=== PATIENT | female | born 1995 | race Caucasian/White ===

== ENCOUNTER → 2016-04-27 | Outpatient (CLI) | payer OTHER, MEDICAID ==
[~2016-04-27] MED LIST: ABILIFY; AC500T; ACHD5005 PO; BCP PO; CEPH250S PO; CEPH500C PO; CODE-54 PO; CYCL10TA9 PO; HYDR-3454 PO; HYDR-707 PO; HYDR25CA92 GT; HYOS0.1217 PO; IBP600T1 PO; IBP800T PO; KETO10TA77 PO; NAPR220C PO; NEOM10DR20 LEFT EAR; NF-NOR777T PO; NITR100C3 PO; NORE1TAB95 PO; ONDA-42 PO; ONDA-42 SL; ONDA4SOL2 PO; ORTHO EVRA PATCH; OSLT75C PO; OXYC-12 PO; PANT20TA2 PO; PREN1TAB19 PO; PREN1TAB86 PO; SRTR100T PO; TRM50T PO; VENL75TA74 PO
--- OUTSIDE RECORDS SUMMARY | 2016-04-27 09:59 | XMS REPORT | Continuity of Care Document ---
Author Author [facility] Organization [facility] Address Unknown Phone Unavailable Care Team Providers Care Tower Hoist Operator Name Role Phone CHINYERE MILLER MD PCP Insurance Providers Payer Name Policy Number Subscriber Name [facility] [place] [id number] Antonia Pinto 18 Self / Same As Patient [facility] [id number] Antonia Pinto 17 Self / Same As Patient Advance Directives Directive Response Recorded Date/Time Advance Directives No 06/02/14 10:08am Health Care Power of Mission Worker No 06/02/14 10:08am Organ Donor Yes 06/02/14 10:08am Resuscitation Status Full Code 06/02/14 10:08am Problems No known problems or medical conditions. Medications Medication Dose Route Sig Days/Qty Instructions Order Date Discontinued Date Status Acetaminophen 01/25/09 06/22/09 Discontinued Oseltamivir Phosphate 75 Mg PO DAILY 10 Qty 01/25/09 06/22/09 Discontinued Acetaminophen/Hydrocodone Bitart 1 Each PO Q 4 - 6 HR PRN 10 Qty 06/22/09 Discontinued Estradiol/Norethindr Acetate 0.035 Tab PO DAILY 01/26/10 01/02/11 Discontinued Tramadol HCl 100 Mg PO EVERY 6 HOURS 20 Qty 01/27/10 04/07/11 Discontinued Neomycin/Polymyxin/Hydrocortisone 3 Drops LEFT EAR FOUR TIMES DAILY 30 Qty 01/02/11 04/07/11 Discontinued Naproxen Sodium 660 Mg PO TWICE A DAY 04/07/11 01/25/12 Discontinued [Ortho Evra Patch] WEEKLY 04/07/11 10/11/11 Discontinued Ondansetron Hcl 4 Mg PO EVERY 4HRS PRN 10 Qty 04/23/11 10/11/11 Discontinued Sertraline HCl 50 Mg PO DAILY 10/11/11 04/02/12 Discontinued [Abilify] 2 Mg 10/11/11 01/25/12 Discontinued Noreth A-Et Estra/Fe Fumarate 1 Each PO 10/11/11 01/25/12 Discontinued Acetaminophen/Hydrocodone Bitart 1 Each PO EVERY 6 HOURS PRN 10 Qty 08/3104/02/12 Discontinued Cyclobenzaprine HCl (Flexeril) 1 Each PO Q8HR PRN 20 Qty 01/25/1204/02 Discontinued Ibuprofen 800 Mg PO GIVE EVERY 8 HRS ON SCHEDULE PRN 30 Qty 01/25/12 04/02/12 Discontinued Cephalexin Monohydrate (Keflex) 1 Each PO FOUR TIMES DAILY 7 Days 04/0212/17/12 Discontinued Ibuprofen 800 Mg PO GIVE EVERY 8 HRS ON SCHEDULE PRN 30 Qty 04/02/12 12/17/12 Discontinued Nitrofurantoin/Nitrofuran Mac 100 Mg PO TWICE A DAY PRN ABDOMINAL PAIN 7 Days 04/17/13 07/06/13 Discontinued Vit/Fe Fumarate/Fa 1 Each PO DAILY 30 Qty 04/17/13 05/26/14 Discontinued Hydroxyzine Pamoate 25 Mg GT EVERY 6 HOURS PRN ANXIETY 30 Qty 08/24/13 08/29/13 Discontinued Ondansetron Hcl 4 Mg PO EVERY 4HRS PRN NAUSEA/VOMITING 30 Qty 08/24/13 08/29/13 Discontinued Oxycodone Hcl/Acetaminophen 1 Each PO EVERY 4HRS PRN PAIN 30 Qty 08/29/13 Discontinued Acetaminophen/Codeine 1 Tab PO EVERY 6 HOURS PRN PAIN 20 Qty 08/27/13 05/26/14 Discontinued Ibuprofen 600 Mg PO EVERY 6 HOURS 30 Qty 08/27/13 05/26/14 Discontinued Cephalexin Monohydrate (Keflex) 1 Each PO FOUR TIMES DAILY 40 Qty 08/2905/26/14 Discontinued [Bcp] 1 Tab PO DAILY 05/26/14 Active Venlafaxine Hcl 75 Mg PO DAILY 05/26/14 Active Hydrocodone Bit/Acetaminophen 1-2 Tab PO EVERY 4-6 HRS PRN PAIN 30 Qty 06/02/14 Active Social History Social History Problem Response Recorded Date/Time Alcohol Use Denies Use 08/29/2013 1:41am Recreational Drug Use No 08/29/2013 1:41am Recent Foreign Travel No 08/29/2013 1:41am Recent Infectious Disease Exposure No 08/29/2013 1:41am Sexually Transmitted Disease No 08/29/2013 1:41am Smoking Status Current Everyday Smoker 06/02/2014 10:10am Query Response Start Date Stop Date Smoking Status Current Everyday Smoker Hospital Discharge Instructions No hospital discharge instructions. Plan of Care No plan of care. Functional Status No functional status results. Allergies, Adverse Reactions, Alerts Allergen Type Severity Reaction Status Last Updated morphine Allergy Mild Active 06/22/09 Immunizations Name Given Type Date of Influenza Vaccine 05/24/14 Historical Tetanus Booster (TDap) Unknown Historical Vital Signs Acute Vital Signs Vital Response Date/Time Temperature (Fahrenheit) 98.5 degrees F (97.6 - 99.5) Temperature (Calculated Celsius) 36.59979 degrees C (36.4 - 37.5) Temperature Source Temporal Pulse Rate (adult) 55 bpm (60 - 90) Respiratory Rate 16 bpm (12 - 24) O2 Sat by Pulse Oximetry 100 % (88 - 100) Blood Pressure 122/86 mm Hg Pain Pain Intensity 0 Height (Feet) 5 feet Height (Inches) 4.00 inches Height (Calculated Centimeters) 162.876613 cm Weight (Pounds) 134 pounds Weight (Ounces) 6.0 oz Weight (Calculated Grams) 97843.475 gm Weight (Calculated Kilograms) 60.145158 kilograms Height 5 ft 4 in Weight 134 lb Body Mass Index 23.1 kg/m^2 Results No known relevant diagnostic tests, laboratory data and/or discharge summary. Procedures Procedure Status Date Provider(s) Excision of epidermal inclusion cyst completed 06/02/14 JUAN DANIEL GOMEZ MD Encounters Encounter Location Date/Time Registered Surgical Day Care Via [facility] 06/02/14 8:05am Registered Clinic Via [facility] 05/26/14 8:41am
--- NOTE | 2016-04-27 11:29 | Diagnostic Imaging Report ---
EXAM: OB ultrasound. INDICATION: Cramping. Status post fall. COMPARISON: 04/12/2016 exam. FINDINGS: There is a live twin with twin A to the right of the uterus with a heart rate of 172 and Twin B embryo has a heart rate of 163 beats per minute. The crown-rump length at this time is at 8 weeks and 3 days for twin A and at the 8 weeks and 3 days also for twin B. The current gestational age by prior ultrasound measurements is 8 weeks and 2 days, compatible with normal growth. IMPRESSION: Live twin intrauterine with appropriate interval growth. Dictated by: Dictated on workstation # [id number]
== END ==
LOC: RAD 09:56
PROVIDERS: ATTEND Family Medicine
DX: O9A.211 Injury, poisoning and certain other consequences of external causes complicating pregnancy, first trimester (principal); O26.891 Other specified pregnancy related conditions, first trimester; N94.89 Other specified conditions associated with female genital organs and menstrual cycle; O30.001 Twin pregnancy, unspecified number of placenta and unspecified number of amniotic sacs, first trimester; Z3A.08 8 weeks gestation of pregnancy; W19.XXXA Unspecified fall, initial encounter
CPT/HCPCS: 76801

== ENCOUNTER → 2016-05-07 | Outpatient (CLI) | payer OTHER, MEDICAID ==
--- OUTSIDE RECORDS SUMMARY | 2016-05-07 09:33 | XMS REPORT | Continuity of Care Document ---
Author Author [facility] Organization [facility] Address Unknown Phone Unavailable Care Team Providers Care Loading And Unloading Supervisor Name Role Phone CHINYERE MILLER MD PCP Insurance Providers Payer Name Policy Number Subscriber Name Relationship [facility] [id number] Antonia Pinto 17 Self / Same As Patient [facility] Amerigrp [id number] Antonia Pinto 17 Self / Same As Patient Advance Directives Directive Response Recorded Date/Time Advance Directives No 06/02/14 10:08am Health Care Power of Birth Certificate Clerk No 06/02/14 10:08am Organ Donor Yes 06/02/14 [...] F (97.6 - 99.5) Temperature (Calculated Celsius) 36.65526 degrees C (36.4 - 37.5) Temperature Source Temporal Pulse Rate (adult) 55 bpm (60 - 90) Respiratory Rate 16 bpm (12 - 24) O2 Sat by Pulse Oximetry 100 % (88 - 100) Blood Pressure 122/86 mm Hg Pain Pain Intensity 0 Height (Feet) 5 feet Height (Inches) 4.00 inches Height (Calculated Centimeters) 162.709933 cm Weight (Pounds) 134 pounds Weight (Ounces) 6.0 oz Weight (Calculated Grams) 46562.475 gm Weight (Calculated Kilograms) 60.642570 kilograms Height 5 ft 4 in Weight 134 lb Body Mass Index 23.1 kg/m^2 Results No known relevant diagnostic tests, laboratory data and/or discharge summary. Procedures Procedure Status Date Provider(s) Excision of epidermal inclusion cyst completed 06/02/14 JUAN DANIEL GOMEZ MD Encounters Encounter Location Date/Time Registered Surgical Day Care [facility] 06/02/14 8:05am Registered Clinic [facility] 05/26/14 8:41am
--- NOTE | 2016-05-07 13:31 | Diagnostic Imaging Report ---
OB ultrasound of twin . INDICATION: Twin . Comparison exams of 04/27/2016 and 04/12/2016 reviewed. FINDINGS: Twin A located inferiorly and to the right has heart rate of 156 beats per minute and crown-rump length of 10 weeks and 0 days normal for gestational age of 9 weeks and 5 days. Twin B has sac superior and to the left and the embryo has cardiac motion at 152 beats per minute. Pomaria-rump length is at 9 weeks and 6 days. There is placental implantation thickening posteriorly seen. The left ovary appears normal. The right ovary is obscured by bowel gas. IMPRESSION: Live twin with appropriate interval growth. Dictated by: Dictated on workstation # [id number]
== END ==
LOC: RAD 09:29
PROVIDERS: ATTEND Family Medicine
DX: O34.593 Maternal care for other abnormalities of gravid uterus, third trimester (principal); N85.8 Other specified noninflammatory disorders of uterus; O30.009 Twin pregnancy, unspecified number of placenta and unspecified number of amniotic sacs, unspecified trimester; Z3A.10 10 weeks gestation of pregnancy; W19.XXXA Unspecified fall, initial encounter
CPT/HCPCS: 76801

== ENCOUNTER → 2016-05-28 | Outpatient (CLI) | payer OTHER, MEDICAID ==
--- OUTSIDE RECORDS SUMMARY | 2016-05-28 09:23 | XMS REPORT | Continuity of Care Document ---
Author Author [facility] Organization [facility] Address Unknown Phone Unavailable Care Team Providers Care Cosmetology Instructor Name Role Phone CHINYERE MILLER MD PCP Insurance Providers Payer Name Policy Number Subscriber Name [facility] [id number] Antonia Pinto 17 Self / Same As Patient [facility] [employer]p [id number] Antonia Pinto 17 Self / Same As Patient Advance Directives Directive Response Recorded Date/Time Advance Directives No 06/02/14 10:08am Health Care Power of Medical Records Technician No 06/02/14 10:08am Organ Donor Yes 06/02/14 [...] F (97.6 - 99.5) Temperature (Calculated Celsius) 36.31034 degrees C (36.4 - 37.5) Temperature Source Temporal Pulse Rate (adult) 55 bpm (60 - 90) Respiratory Rate 16 bpm (12 - 24) O2 Sat by Pulse Oximetry 100 % (88 - 100) Blood Pressure 122/86 mm Hg Pain Pain Intensity 0 Height (Feet) 5 feet Height (Inches) 4.00 inches Height (Calculated Centimeters) 162.116006 cm Weight (Pounds) 134 pounds Weight (Ounces) 6.0 oz Weight (Calculated Grams) 90052.475 gm Weight (Calculated Kilograms) 60.977605 kilograms Height 5 ft 4 in Weight 134 lb Body Mass Index 23.1 kg/m^2 Results No known relevant diagnostic tests, laboratory data and/or discharge summary. Procedures Procedure Status Date Provider(s) Excision of epidermal inclusion cyst completed 06/02/14 JUAN DANIEL GOMEZ MD Encounters Encounter Location Date/Time Registered Surgical Day Care Via [facility] 06/02/14 8:05am Registered Clinic [facility] 05/26/14 8:41am
--- NOTE | 2016-05-28 11:22 | Diagnostic Imaging Report ---
OB ultrasound twins, first trimester. INDICATION: Twin . COMPARISON: 05/07/2016. FINDINGS: Baby A, closest to the cervix, has heart rate of 153 beats per minute,? and Twin B has heart rate of 158 beats per minute. The crown rump length for Baby A is 13 weeks and 0 days and Baby B is 13 weeks and 2 days compatible with gestational age based on the first ultrasound performed at 12 weeks and 5 days. No subchorionic hemorrhage or other abnormality is seen. Adequate fluid in a symmetric fashion is seen in both twins. IMPRESSION: Live twin with appropriate interval growth. Dictated by: Dictated on workstation # [id number]
== END ==
LOC: RAD 09:19
PROVIDERS: ATTEND Family Medicine
DX: O30.001 Twin pregnancy, unspecified number of placenta and unspecified number of amniotic sacs, first trimester (principal); Z3A.13 13 weeks gestation of pregnancy
CPT/HCPCS: 76801

== ENCOUNTER 2016-06-02 19:53 | Emergency (ER) | payer OTHER, MEDICAID ==
[~2016-06-02 19:53] MED LIST changes: -CEPH250S PO; -PREN1TAB86 PO
--- OUTSIDE RECORDS SUMMARY | 2016-06-02 20:02 | XMS REPORT | Continuity of Care Document ---
Author Author [facility] Organization [facility] Address Unknown Phone Unavailable Care Team Providers Care Properties Supervisor Name Role Phone CHINYERE MILLER MD PCP Insurance Providers Payer Name Policy Number Subscriber Name [facility] [id number] Antonia Pinto 17 Self / Same As Patient [facility] Amerigrp [id number] Antonia Pinto 17 Self / Same As Patient Advance Directives Directive Response Recorded Date/Time Advance Directives No 06/02/14 10:08am Health Care Power of Cafeteria Associate No 06/02/14 10:08am Organ Donor Yes 06/02/14 [...] F (97.6 - 99.5) Temperature (Calculated Celsius) 36.63534 degrees C (36.4 - 37.5) Temperature Source Temporal Pulse Rate (adult) 55 bpm (60 - 90) Respiratory Rate 16 bpm (12 - 24) O2 Sat by Pulse Oximetry 100 % (88 - 100) Blood Pressure 122/86 mm Hg Pain Pain Intensity 0 Height (Feet) 5 feet Height (Inches) 4.00 inches Height (Calculated Centimeters) 162.302407 cm Weight (Pounds) 134 pounds Weight (Ounces) 6.0 oz Weight (Calculated Grams) 68655.475 gm Weight (Calculated Kilograms) 60.146737 kilograms Height 5 ft 4 in Weight 134 lb Body Mass Index 23.1 kg/m^2 Results No known relevant diagnostic tests, laboratory data and/or discharge summary. Procedures Procedure Status Date Provider(s) Excision of epidermal inclusion cyst completed 06/02/14 JUAN DANIEL GOMEZ MD Encounters Encounter Location Date/Time Registered Surgical Day Care Via [facility] 06/02/14 8:05am Registered Clinic Via [facility] 05/26/14 8:41am
== END 2016-06-02 21:11 | disposition left against medical advice (07) ==
LOC: EDUNIT# 19:53 → ER 19:57
DX: R51 Headache (principal); R42 Dizziness and giddiness; Z3A.14 14 weeks gestation of pregnancy; Z53.21 Procedure and treatment not carried out due to patient leaving prior to being seen by health care provider

== ENCOUNTER → 2016-06-21 | Outpatient (CLI) | payer OTHER, MEDICAID ==
[~2016-06-21] MED LIST changes: +CEPH250S PO; +PREN1TAB86 PO
--- OUTSIDE RECORDS SUMMARY | 2016-06-21 11:39 | XMS REPORT | Continuity of Care Document ---
Author Author [facility] Organization [facility] Address Unknown Phone Unavailable Care Team Providers Care Skilled Laborer Name Role Phone CHINYERE MILLER MD PCP Insurance Providers Payer Name Policy Number Subscriber Name Relationship [facility] [id number] Antonia Pinto 17 Self / Same As Patient [facility] Amer[facility]p [id number] Antonia Pinto 17 Self / Same As Patient Advance Directives Directive Response Recorded Date/Time Advance Directives No 06/02/14 10:08am Health Care Power of Meat Washer No 06/02/14 10:08am Organ Donor Yes 06/02/14 [...] F (97.6 - 99.5) Temperature (Calculated Celsius) 36.14738 degrees C (36.4 - 37.5) Temperature Source Temporal Pulse Rate (adult) 55 bpm (60 - 90) Respiratory Rate 16 bpm (12 - 24) O2 Sat by Pulse Oximetry 100 % (88 - 100) Blood Pressure 122/86 mm Hg Pain Pain Intensity 0 Height (Feet) 5 feet Height (Inches) 4.00 inches Height (Calculated Centimeters) 162.584002 cm Weight (Pounds) 134 pounds Weight (Ounces) 6.0 oz Weight (Calculated Grams) 53106.475 gm Weight (Calculated Kilograms) 60.519800 kilograms Height 5 ft 4 in Weight 134 lb Body Mass Index 23.1 kg/m^2 Results No known relevant diagnostic tests, laboratory data and/or discharge summary. Procedures Procedure Status Date Provider(s) Excision of epidermal inclusion cyst completed 06/02/14 JUAN DANIEL GOMEZ MD Encounters Encounter Location Date/Time Registered Surgical Day Care [facility] 06/02/14 8:05am Registered Clinic Via [facility] 05/26/14 8:41am
--- NOTE | 2016-06-21 19:04 | Diagnostic Imaging Report ---
OB ultrasound, twin . INDICATION: Twin . COMPARISON: 06/17/2016. FINDINGS: There is live twin with heart rate on baby A near the cervix at 142 and heart rate on baby B is 144. The placenta for baby A is anterior and inferior and for baby B is posterior and superior. There is no placenta previa. The growth parameters for baby A are all around 16 weeks and 2 days and for baby B all around 16 weeks and 3 days, consistent with gestational age based on first trimester ultrasound dating and established CAITIE of 12/05/2016. Gestational age on the day of this exam is 16 weeks and 1 day. IMPRESSION: Live twin with appropriate interval growth. Dictated by: Dictated on workstation # [id number]
== END ==
LOC: RAD 11:05
PROVIDERS: ATTEND Family Medicine
DX: O26.892 Other specified pregnancy related conditions, second trimester (principal); M54.5 Low back pain; O30.002 Twin pregnancy, unspecified number of placenta and unspecified number of amniotic sacs, second trimester; Z3A.00 Weeks of gestation of pregnancy not specified
CPT/HCPCS: 76805

== ENCOUNTER 2016-07-05 21:46 | Emergency (ER) | payer OTHER, MEDICAID ==
[~2016-07-05] VITALS: Ht 162.6 cm; Wt 64.9 kg
[~2016-07-05 21:46] MED LIST changes: -CEPH250S PO; -PREN1TAB86 PO
--- OUTSIDE RECORDS SUMMARY | 2016-07-05 21:52 | XMS REPORT | Continuity of Care Document ---
Author Author [facility] Organization [facility] Address Unknown Phone Unavailable Care Team Providers Care Steam Service Inspector Name Role Phone CHINYERE MILLER MD PCP Insurance Providers Payer Name Policy Number Subscriber Name [facility] [id number] Antonia Pinto 17 Self / Same As Patient [facility] Amerigrp [id number] Antonia Pinto 17 Self / Same As Patient Advance Directives Directive Response Recorded Date/Time Advance Directives No 06/02/14 10:08am Health Care Power of Acute Care Nurse No 06/02/14 10:08am Organ Donor Yes 06/02/14 [...] F (97.6 - 99.5) Temperature (Calculated Celsius) 36.34454 degrees C (36.4 - 37.5) Temperature Source Temporal Pulse Rate (adult) 55 bpm (60 - 90) Respiratory Rate 16 bpm (12 - 24) O2 Sat by Pulse Oximetry 100 % (88 - 100) Blood Pressure 122/86 mm Hg Pain Pain Intensity 0 Height (Feet) 5 feet Height (Inches) 4.00 inches Height (Calculated Centimeters) 162.795487 cm Weight (Pounds) 134 pounds Weight (Ounces) 6.0 oz Weight (Calculated Grams) 02458.475 gm Weight (Calculated Kilograms) 60.724678 kilograms Height 5 ft 4 in Weight 134 lb Body Mass Index 23.1 kg/m^2 Results No known relevant diagnostic tests, laboratory data and/or discharge summary. Procedures Procedure Status Date Provider(s) Excision of epidermal inclusion cyst completed 06/02/14 JUAN DANIEL GOMEZ MD Encounters Encounter Location Date/Time Registered Surgical Day Care Via [facility] 06/02/14 8:05am Registered Clinic Via [facility] 05/26/14 8:41am
[2016-07-05 22:35] LABS: BILIRUBIN,URINE NEGATIVE (NEGATIVE); KETONES,URINE NEGATIVE (NEGATIVE); LEUKOCYTE ESTERASE ,URINE NEGATIVE (NEGATIVE); NITRITE,URINE NEGATIVE (NEGATIVE); PH,URINE 7 (5-9); PROTEIN,URINE NEGATIVE (NEGATIVE); UROBILINOGEN,URINE 1 MG/DL (NORMAL)
--- NOTE | 2016-07-05 22:39 | ED GU-Female ---
General Chief Complaint: -Female Stated Complaint: SPOTTING;18 WEEKS Nursing Triage Note: PT TO ED 9 W/ S.O. FOR C/O VAGINAL PRESSURE ET SPOTTING ONSET 4-5HRS [employer]. PT REPORTS SHE IS 18WKS AT THIS TIME. Nursing Sepsis Screen: No Definite Risk Source: patient Exam Limitations: no limitations History of Present Illness Time seen by provider: 22:20 Initial Comments Here with complaint of lower abdominal pressure and spotting intermittently for the last 45 hours. She reports times has spotting to her pad. She is with twins. She denies vaginal discharge, fevers, nausea or vomiting or diarrhea. She denies dysuria. Last sexual activity was yesterday. Timing/Duration: constant Severity/Quality: mild, other (fullness) Location: suprapubic, vaginal Radiation: none Activities at Onset: none Prior Genitourinary Problems: none Sexual [place] History: less than 2 months ago, single partner Associated Symptoms: No dysuria, No lower back pain, No nausea/vomiting, No urinary frequency Allergies and Home Medications Allergies Coded Allergies: morphine (Unverified Allergy, Mild, 06/22/09) Home Medications 1 TAB PO DAILY (Reported) Hyoscyamine Sulfate 0.125 Mg/Tab Tab.rapdis #30 1-2 EACH PO Q4H PRN PRN ABDOMINAL PAIN Prescribed by: THIERNO BAILEY on 09/15/14 1022 Ketorolac Tromethamine 10 Mg Tablet #10 10 MG PO Q6H Prescribed by: THIERNO BAILEY on 09/15/14 1022 Ondansetron Hcl 4 Mg Tab #10 4 MG SL Q4H FOR NAUSEA AND VOMITING Prescribed by: THIERNO BAILEY on 09/15/14 1022 Pantoprazole Sodium 20 Mg Tablet.dr #20 20 MG PO BID Prescribed by: THIERNO BAILEY on 09/15/14 1022 Constitutional: see HPINo chills, No fever EENTM: no symptoms reported Respiratory: no symptoms reported Cardiovascular: no symptoms reported Gastrointestinal: see HPI abdominal pain (Suprapubic)No nausea, No vomiting Genitourinary: denies burning, pain (vaginal fullness)denies urgency All Other Systemes Reviewed Negative Unless Noted: Yes Past Bwvmrox-Fyaapk-Odxruv Hx Patient Social History Alcohol Use: Denies Use Recreational Drug Use: No Smoking Status: Current Everyday Smoker Type Used: Cigarettes Recent Foreign Travel: No Contact w/Someone Who Travel: No Recent Infectious Disease Expo: No Recent Hopitalizations: No Immunizations Up To Date Tetanus Booster (TDap): Unknown Date of Influenza Vaccine: May 24, 2014 Seasonal Allergies Seasonal Allergies: No Surgeries HX Surgeries: Yes (PILONIDAL CYST REMOVAL) Surgeries: Gallbladder Respiratory Hx Respiratory Disorders: No Cardiovascular Hx Cardiac Disorders: No Neurological Hx Neurological Disorders: No Reproductive System Hx : 2 Hx Para: 1 Hx Total # of Abortions (Spona: 0 Hx Reproductive Disorders: No Sexually Transmitted Disease: No Female Reproductive Disorders: Denies Genitourinary Hx Genitourinary Disorders: No Gastrointestinal Hx Gastrointestinal Disorders: Yes Gastrointestinal Disorders: Gall Bladder Disease Musculoskeletal Hx Musculoskeletal Disorders: No Endocrine Hx Endocrine Disorders: No HEENT HX ENT Disorders: No Cancer Hx Cancer: No Psychosocial Hx Psychiatric Problems: Yes (OFF MEDICATION) Behavioral Health Disorders: Anxiety Integumentary HX Skin/Integumentary Disorder: No Blood Transfusions Hx Blood Disorders: No Adverse Reaction to a Blood Tr: No Reviewed Nursing Assessment Reviewed/Agree w Nursing PMH: Yes Family Medical History Significant Family History: No Pertinent Family Hx Family Medial History: Family history: Diabetes mellitus 19 FATHER, Onset:Unknown grandfather, Onset:Unknown Family history: Hypertension grandmother, Onset:Unknown Physical Exam Vital Signs Vital Sign - Last 12Hours 07/05/16 22:10 Temp 97.0 Pulse 97 Resp 20 B/P 133/81 Pulse Ox 98 O2 Delivery Room Air Capillary Refill : Less Than 3 Seconds General Appearance: WD/WN no apparent distress Neck: full range of motion supple Cardiovascular: regular rate, rhythm no murmur Respiratory: lungs clear normal breath sounds Gastrointestinal: soft tenderness (suprapubic region and to the left a little bit.) Back: normal inspection no CVA tenderness no vertebral tenderness Extremities: non-tender normal inspection Neurologic/Psychiatric: alert oriented x 3 Skin: normal color warm/dry Progress/Results/Core Measures Results/Orders Lab Results Laboratory Tests Test 07/05/16 22:27 Range/Units Urine Bacteria TRACE /HPF Urine Bilirubin NEGATIVE NEGATIVE Urine Casts NONE /LPF Urine Clarity CLEAR Urine Color YELLOW Urine Crystals NONE /LPF Urine Culture Indicated NO Urine Glucose (UA) NEGATIVE NEGATIVE Urine Ketones NEGATIVE NEGATIVE Urine Leukocyte Esterase NEGATIVE NEGATIVE Urine Mucus NEGATIVE /LPF Urine Nitrite NEGATIVE NEGATIVE Urine Protein NEGATIVE NEGATIVE Urine RBC NONE /HPF Urine RBC (Auto) NEGATIVE NEGATIVE Urine Specific [place] 1.010 L 1.016-1.022 Urine Squamous Epithelial Cells 2-5 /HPF Urine Urobilinogen 1 NORMAL MG/DL Urine WBC 0-2 /HPF Urine pH 7 5-9 My Orders Orders-KECIA CHEEMA MD Ua Culture If Indicated (07/05/16 22:26) [place] Limited [id number] (07/05/16 21:52) Vital Signs/I&O Vital Sign - Last 12Hours 07/05/16 22:10 Temp 97.0 Pulse 97 Resp 20 B/P 133/81 Pulse Ox 98 O2 Delivery Room Air Blood Pressure Mean: 98 Progress Note : Progress Note Seen and evaluated. UA ordered. Blood type reviewed and she is A+. Pelvic ultrasound ordered. I did discuss the case with Dr. Miller. He will see the patient tomorrow. He agrees with plan. We will hold on pelvic exam and less there are increasing problems. He agrees with ultrasound. 0035: No significant rebleeding reported or noted. We will discharge home with return precautions. Pelvic rest until cleared by her doctor. To follow-up with Dr. Miller in the morning. She will call clinic for appointment. Discharged home with return precautions. Patient and family verbalize understanding instructions and agreement with plan. Diagnostic Imaging Diagonstic Imaging: Ultrasound Plain Films/CT/US/NM/MRI: pelvis Comments Impression 1. 20 . EGA of 18 weeks and 1 day based on current measurements. 2. Twin A and cephalic presentation. Twin B is in transverse position. 3 cervical length of 3.9 cm. internal os is closed. 4. heart rate within normal limits. Incidental findings: Twin A: heart rate of 130 6G p.m. Anterior percent. Twin B: heart rate of 138 bpm. Posterior placenta. Departure Impression Impression: Primary Impression: Threatened miscarriage Disposition: 01 HOME, SELF-CARE Condition: Stable Departure-Patient Inst. Decision time for Depature: 00:38 Referrals: CHINYERE MILLER MD (PCP/Family) Primary Care Physician Patient Instructions: Threatened Miscarriage (DC) Add. Discharge Instructions: All discharge instructions reviewed with patient and/or family. Voiced understanding. Pelvic rest meaning no sexual activity until cleared by her doctor. No heavy lifting until cleared by her doctor. Call your in the morning for appointment today. Return for worse pain, fever, vomiting, weakness, vaginal bleeding increasing, increasing abdominal pain or other concerns as needed. Drink plenty of fluids. Copy Copies To 1: CHINYERE MILLER MD, TIMOTHY D MD Jul 05, 2016 22:39
[2016-07-05 22:46] LABS: WBC,URINE 0-2 /HPF
[2016-07-06 00:47] VITALS: BP 120/69
--- NOTE | 2016-07-06 07:17 | Diagnostic Imaging Report ---
OB ultrasound twins. INDICATION: Spotting. FINDINGS: Again seen twin . Fetus A heart rate is 136 beats per minute, and Fetus B heart rate is 138 beats per minutes. Fetus A is in cephalic position, and is towards the cervix, and Fetus B is in transverse position with the head to the maternal left. Current gestational age is 18 weeks and 1 day. The placenta is anterior for Fetus A and posterior for Fetus B. There is no placenta previa. The cervix is 3.9 cm in length and is closed. Adequate amniotic fluid is seen on both sides. No evidence of retroplacental hemorrhage. IMPRESSION: Live twin . Dictated by: Dictated on workstation # [id number]
== END 2016-07-06 00:47 | disposition home or self-care (01) ==
LOC: EDUNIT# 21:46 → ER 21:48
DX: O20.0 Threatened abortion (principal); O30.042 Twin pregnancy, dichorionic/diamniotic, second trimester; Z3A.18 18 weeks gestation of pregnancy
CPT/HCPCS: 76815; 81000; 99282

== ENCOUNTER 2016-07-20 09:50 | Outpatient (CLI) | payer OTHER, MEDICAID ==
[~2016-07-20] VITALS: Ht 162.6 cm; Wt 68.5 kg
[2016-07-20 10:30] LABS: BILIRUBIN,URINE NEGATIVE (NEGATIVE); KETONES,URINE NEGATIVE (NEGATIVE); LEUKOCYTE ESTERASE ,URINE 1+ (NEGATIVE); NITRITE,URINE NEGATIVE (NEGATIVE); PH,URINE 6 (5-9); PROTEIN,URINE 2+ (NEGATIVE); UROBILINOGEN,URINE 4 MG/DL (NORMAL)
[2016-07-20] MEDS ORDERED: D5 NS 1000 ML IV SOLUTION 1,000 ML IV SCH (10:30)
[2016-07-20] MEDS ORDERED: PREN1TAB86 PO (10:31)
[2016-07-20 11:18] LABS: BASOPHILS % (AUTO) 0 % (0-10); EOSINOPHILS % (AUTO) 0 % (0-10); LYMPHOCYTES # (AUTO) 1.1 X 10^3 (1.0-4.0); LYMPHOCYTES % (AUTO) 12 % (12-44); MEAN CORPUSCULAR HEMOGLOBIN 33 PG (25-34); MEAN CORPUSCULAR HGB CONC 33 G/DL (32-36); MEAN CORPUSCULAR VOLUME 102 FL (80-99); MEAN PLATELET VOLUME 11.6 FL (7.4-10.4); MONOCYTES # (AUTO) 0.8 X 10^3 (0.0-1.0); MONOCYTES % (AUTO) 8 % (0-12); NEUTROPHILS # (AUTO) 7.4 X 10^3 (1.8-7.8); NEUTROPHILS % (AUTO) 79 % (42-75); PLATELET COUNT 187 10^3/uL (130-400); RED BLOOD COUNT 2.59 10^6/uL (4.35-5.85); RED CELL DISTRIBUTION WIDTH 12.6 % (10.0-14.5); WHITE BLOOD COUNT 9.3 10^3/uL (4.3-11.0)
[2016-07-20 11:20] VITALS: BP 106/55
[2016-07-20 12:17] LABS: ALANINE AMINOTRANSFERASE 71 U/L (0-55); ALBUMIN 3.1 G/DL (3.2-4.5); AMYLASE 135 U/L (25-125); ANION GAP 6 MMOL/L (5-14); ASPARTATE AMINO TRANSFERASE 73 U/L (5-34); BILIRUBIN,TOTAL 0.4 MG/DL (0.1-1.0); BLOOD UREA NITROGEN 11 MG/DL (7-18); BUN/CREATININE RATIO 19; CALCIUM 8.7 MG/DL (8.5-10.1); CARBON DIOXIDE 24 MMOL/L (21-32); CHLORIDE 106 MMOL/L (98-107); CREATININE SERUM 0.59 MG/DL (0.60-1.30); GFR ESTIMATED > 60; GLUCOSE 83 MG/DL (70-105); LIPASE 4 U/L (8-78); SODIUM 136 MMOL/L (135-145); TOTAL PROTEIN 5.9 G/DL (6.4-8.2)
[2016-07-20] MEDS ORDERED: CEPH250S PO (12:34)
--- NOTE | 2016-07-23 12:52 | Physician Query-Final Dx ---
ANN IZAGUIRRE 07/23/16 1252: Clinic Account Progress/Dx Physician Query: Please give diagnosis Date of Service Jul 20, 2016 at 09:50 CHINYERE MILLER MD 07/29/16 1731: Clinic Account Progress/Dx DIAGNOSIS: Diagnosis 1. UTI-resulting in abdominal discomfort 2. with twins at 20 weeks ANN IZAGUIRRE Jul 23, 2016 12:52 CHINYERE MILLER MD Jul 29, 2016 17:31
== END 2016-07-20 13:31 | disposition home or self-care (01) ==
LOC: DELPENDDIS → WSo 09:50 → LDRP 09:50 → WSo 13:31 → LDRP 15:43 → 3RD 15:43
PROVIDERS: ATTEND Family Medicine
DX: O23.42 Unspecified infection of urinary tract in pregnancy, second trimester (principal); O30.092 Twin pregnancy, unable to determine number of placenta and number of amniotic sacs, second trimester; Z3A.20 20 weeks gestation of pregnancy
CPT/HCPCS: 36415; 80053; 81000; 82150; 83690; 85025; 87088; 96360; 96361; 99214

== ENCOUNTER → 2016-07-30 | Outpatient (CLI) | payer OTHER, MEDICAID ==
[~2016-07-30] MED LIST changes: +CEPH250S PO; +PREN1TAB86 PO
--- NOTE | 2016-07-30 11:26 | Diagnostic Imaging Report ---
EXAMINATION: OB ultrasound, twin . INDICATION: Twin gestation. survey. COMPARISON: 07/05/2016. FINDINGS: Baby A in the right uterus is cephalic in position near the cervix with a heart rate of 140 BPM. The placenta is anterior. No placenta previa. Baby B is breech and to the left of the uterus with a heart rate of 140 BPM with a posterior placenta. There is a membrane seen the pregnancies with adequate amniotic fluid seen on both sides. BABY A: There is no ventriculomegaly with an unremarkable appearance of the posterior fossa. The four-chamber view appears grossly unremarkable. The stomach appears unremarkable. The cord insertion appears normal. The bladder appears normal. Two umbilical arteries are demonstrated. The spine appears unremarkable. No hydronephrosis or cystic renal mass is demonstrated. BABY B: There is no abnormality in the spine and no ventriculomegaly. The posterior fossa appears grossly unremarkable. The four-chamber view appears grossly unremarkable. The stomach appears normal. Two umbilical arteries are suggested. The bladder and cord insertion appear unremarkable. The growth parameters of Baby A are: Biparietal diameter and head circumference at 21 weeks and 6 days. Abdominal circumference at 21 weeks and 5 days. Femur length at 22 weeks and 0 days. The average is 21 weeks and 6 days, concordant with the gestational age of 21 weeks and 5 days based on first trimester ultrasound dating. The growth parameters of Baby B are: Biparietal diameter at 22 weeks and 0 days. Head circumference at 21 weeks and 2 days. Abdominal circumference at 22 weeks and 0 days. Femur length at 21 weeks and 5 days. The average is 21 weeks and 6 days which is also concordant with the gestational age of 21 weeks and 5 days. IMPRESSION: Appropriate interval growth. Completed survey. Dictated by: Dictated on workstation # [id number]
== END ==
LOC: RAD 09:08
PROVIDERS: ATTEND Family Medicine
DX: Z36 Encounter for antenatal screening of mother (principal); O30.042 Twin pregnancy, dichorionic/diamniotic, second trimester; Z3A.21 21 weeks gestation of pregnancy
CPT/HCPCS: 76805; 76810

== ENCOUNTER 2016-08-16 11:11 | Outpatient (RCR) | payer OTHER, MEDICAID ==
--- OUTSIDE RECORDS SUMMARY | 2016-06-13 08:41 | XMS REPORT | Continuity of Care Document ---
Author Author [facility] Organization [facility] Address Unknown Phone Unavailable Care Team Providers Care Laborer Brush Clearing Name Role Phone CHINYERE MILLER MD PCP Insurance Providers Payer Name Policy Number Subscriber Name [facility] [id number] Antonia Pinto 17 Self / Same As Patient [facility] Amerigrp [id number] Antonia Pinto 17 Self / Same As Patient Advance Directives Directive Response Recorded Date/Time Advance Directives No 06/02/14 10:08am Health Care Power of Rfid Systems Architect No 06/02/14 10:08am Organ Donor Yes 06/02/14 [...] F (97.6 - 99.5) Temperature (Calculated Celsius) 36.92535 degrees C (36.4 - 37.5) Temperature Source Temporal Pulse Rate (adult) 55 bpm (60 - 90) Respiratory Rate 16 bpm (12 - 24) O2 Sat by Pulse Oximetry 100 % (88 - 100) Blood Pressure 122/86 mm Hg Pain Pain Intensity 0 Height (Feet) 5 feet Height (Inches) 4.00 inches Height (Calculated Centimeters) 162.365938 cm Weight (Pounds) 134 pounds Weight (Ounces) 6.0 oz Weight (Calculated Grams) 91166.475 gm Weight (Calculated Kilograms) 60.252136 kilograms Height 5 ft 4 in Weight 134 lb Body Mass Index 23.1 kg/m^2 Results No known relevant diagnostic tests, laboratory data and/or discharge summary. Procedures Procedure Status Date Provider(s) Excision of epidermal inclusion cyst completed 06/02/14 JUAN DANIEL GOMEZ MD Encounters Encounter Location Date/Time Registered Surgical Day Care Via [facility] 06/02/14 8:05am Registered Clinic [facility] 05/26/14 8:41am
== END 2016-08-16 11:54 | disposition home or self-care (01) ==
PROVIDERS: ATTEND Family Medicine
DX: O26.892 Other specified pregnancy related conditions, second trimester (principal); M54.5 Low back pain; O30.002 Twin pregnancy, unspecified number of placenta and unspecified number of amniotic sacs, second trimester; Z3A.15 15 weeks gestation of pregnancy

== ENCOUNTER 2016-09-02 15:37 | Outpatient (CLI) | payer MEDICAID, OTHER ==
[~2016-09-02] VITALS: Ht 162.6 cm; Wt 73.3 kg
[2016-09-02 15:25] VITALS: BP 134/68
[2016-09-02] MEDS ORDERED: PNV11TAB5 PO (15:44)
[2016-09-02] MEDS ORDERED: FERR-84 PO (15:44)
[2016-09-02] MEDS ORDERED: DIPH25CA79 PO (15:44)
[2016-09-02 16:21] LABS: BASOPHILS # (AUTO) 0.1 10^3/uL (0.0-0.1); BASOPHILS % (AUTO) 1 % (0-10); EOSINOPHILS # (AUTO) 0.1 10^3/uL (0.0-0.3); EOSINOPHILS % (AUTO) 1 % (0-10); LYMPHOCYTES # (AUTO) 1.7 X 10^3 (1.0-4.0); LYMPHOCYTES % (AUTO) 16 % (12-44); MEAN CORPUSCULAR HEMOGLOBIN 33 PG (25-34); MEAN CORPUSCULAR HGB CONC 33 G/DL (32-36); MEAN CORPUSCULAR VOLUME 100 FL (80-99); MEAN PLATELET VOLUME 11.1 FL (7.4-10.4); MONOCYTES # (AUTO) 0.9 X 10^3 (0.0-1.0); MONOCYTES % (AUTO) 9 % (0-12); NEUTROPHILS # (AUTO) 8.2 X 10^3 (1.8-7.8); NEUTROPHILS % (AUTO) 75 % (42-75); PLATELET COUNT 298 10^3/uL (130-400); RED BLOOD COUNT 3.16 10^6/uL (4.35-5.85); RED CELL DISTRIBUTION WIDTH 12.4 % (10.0-14.5)
[2016-09-02 16:36] LABS: ALANINE AMINOTRANSFERASE 87 U/L (0-55); ALBUMIN 2.8 G/DL (3.2-4.5); ANION GAP 10 MMOL/L (5-14); ASPARTATE AMINO TRANSFERASE 60 U/L (5-34); BILIRUBIN,TOTAL 0.9 MG/DL (0.1-1.0); BLOOD UREA NITROGEN 7 MG/DL (7-18); BUN/CREATININE RATIO 12; CALCIUM 8.5 MG/DL (8.5-10.1); CARBON DIOXIDE 20 MMOL/L (21-32); CHLORIDE 107 MMOL/L (98-107); CREATININE SERUM 0.57 MG/DL (0.60-1.30); GFR ESTIMATED > 60; GLUCOSE 110 MG/DL (70-105); POTASSIUM 3.8 MMOL/L (3.6-5.0); SODIUM 137 MMOL/L (135-145); TOTAL PROTEIN 5.9 G/DL (6.4-8.2)
--- NOTE | 2016-09-03 11:29 | Physician Query-Final Dx ---
ANN IZAGUIRRE 09/03/16 1129: Clinic Account Progress/Dx Physician Query: Please give diagnosis Date of Service September 02, 2016 at 15:37 FIORELLA VELAZQUEZ MD 09/06/16 2148: Clinic Account Progress/Dx DIAGNOSIS: Diagnosis Diffuse itching in 2nd trimester Rule out Cholestatis ANN IZAGUIRRE September 03, 2016 11:29 FIORELLA VELAZQUEZ MD September 06, 2016 21:48
== END 2016-09-02 17:18 | disposition home or self-care (01) ==
LOC: LDRP 15:37 → WSo 15:37
PROVIDERS: ATTEND Family Medicine
DX: O99.89 Other specified diseases and conditions complicating pregnancy, childbirth and the puerperium (principal); L29.9 Pruritus, unspecified; Z3A.26 26 weeks gestation of pregnancy
CPT/HCPCS: 36415; 80053; 83789; 85025; 99213

== ENCOUNTER → 2016-09-10 | Outpatient (CLI) | payer OTHER ==
[~2016-09-10] MED LIST changes: +DIPH25CA79 PO; +FERR-84 PO; +PNV11TAB5 PO
[2016-09-10] MEDS: BETAMETHASONE ACE/NA PHOS 6 MG/ML (CELESTONE SOLUSPAN) IM SCH (15:20)
[2016-09-11] MEDS: BETAMETHASONE ACE/NA PHOS 6 MG/ML (CELESTONE SOLUSPAN) IM SCH (11:37)
== END ==
LOC: WSo 13:52
PROVIDERS: ATTEND Family Medicine
DX: O26.619 Liver and biliary tract disorders in pregnancy, unspecified trimester (principal); K83.1 Obstruction of bile duct
CPT/HCPCS: 59025; 96372

== ENCOUNTER → 2016-09-11 | Outpatient (CLI) | payer MEDICAID, OTHER ==
[~2016-09-11] MED LIST changes: +HYDR50CA PO; +URSO300C3 PO
--- NOTE | 2016-09-11 12:16 | Diagnostic Imaging Report ---
EXAMINATION: OB ultrasound. INDICATION: . Cholestasis. FINDINGS: Twin A is in cephalic position to the right side of the uterus and is presenting. Twin A has a heart rate of 128 BPM. The placenta is anterior. No placenta previa. The amniotic fluid index is 13.6 cm. Twin B has a heart rate of 132 BPM and the placenta is posterior. No placenta previa. The amniotic fluid index is 13.2 cm. Twin B is in breech position. IMPRESSION: Live twin . Dictated by: Dictated on workstation # [id number]
== END ==
LOC: RAD 10:44
PROVIDERS: ATTEND Family Medicine
DX: O26.619 Liver and biliary tract disorders in pregnancy, unspecified trimester (principal); K83.1 Obstruction of bile duct; O30.049 Twin pregnancy, dichorionic/diamniotic, unspecified trimester
CPT/HCPCS: 76815

== ENCOUNTER 2016-09-14 19:01 | Outpatient (CLI) | payer OTHER ==
[~2016-09-14] VITALS: Ht 162.6 cm; Wt 74.6 kg
[2016-09-14 18:55] VITALS: BP 122/69
[~2016-09-14 19:01] MED LIST changes: -HYDR50CA PO; -URSO300C3 PO
[2016-09-14] MEDS ORDERED: methylPREDNISolone 125 MG (Solu-MEDROL) VIAL ONE (19:31)
[2016-09-14] MEDS ORDERED: HYDROcodone/APAP 7.5 MG/325 MG (LORTAB, LORCET PLUS) TABLET PO ONE ×2 (19:33→19:45)
[2016-09-14] MEDS ORDERED: URSO300C3 PO (19:45)
[2016-09-14] MEDS ORDERED: methylPREDNISolone 125 MG (Solu-MEDROL) VIAL IVP ONE (19:45)
[2016-09-14] MEDS ORDERED: HYDR50CA PO (19:45)
--- NOTE | 2016-09-18 14:14 | Physician Query-Final Dx ---
ANN IZAGUIRRE 09/18/16 1414: Clinic Account Progress/Dx Physician Query: Please give diagnosis Date of Service September 14, 2016 at 19:01 CHINYERE MILLER MD 09/26/16 0945: Clinic Account Progress/Dx DIAGNOSIS: Diagnosis 1. IUP with twins at 29 weeks. 2. Headache ANN IZAGUIRRE September 18, 2016 14:14 CHINYERE MILLER MD Sep 26, 2016 09:45
== END 2016-09-14 20:15 | disposition home or self-care (01) ==
LOC: WSo 19:01 → LDRP 19:04 → WSo 20:15
PROVIDERS: ATTEND Family Medicine
DX: O99.89 Other specified diseases and conditions complicating pregnancy, childbirth and the puerperium (principal); R51 Headache; Z3A.29 29 weeks gestation of pregnancy
CPT/HCPCS: 96374; 99213

== ENCOUNTER 2016-10-10 16:05 | Outpatient (RCR) | payer OTHER ==
[~2016-10-10] VITALS: Ht 162.6 cm; Wt 73.9 kg
[~2016-10-10 16:05] MED LIST changes: +HYDR50CA PO; +URSO300C3 PO
[2016-10-10 17:50] VITALS: BP 123/70
[2016-10-18 12:25] VITALS: BP 117/73
[2016-10-22 10:45] VITALS: BP 113/70
== END 2017-01-08 | disposition home or self-care (01) ==
LOC: WSo 16:05
PROVIDERS: ATTEND Family Medicine
DX: O26.613 Liver and biliary tract disorders in pregnancy, third trimester (principal); O30.003 Twin pregnancy, unspecified number of placenta and unspecified number of amniotic sacs, third trimester; Z3A.32 32 weeks gestation of pregnancy
CPT/HCPCS: 59025

== ENCOUNTER 2016-10-19 18:47 | Outpatient (CLI) | payer OTHER ==
[~2016-10-19] VITALS: Ht 162.6 cm; Wt 79.1 kg
[2016-10-19 19:40] VITALS: BP 108/68
--- NOTE | 2016-10-22 12:09 | Physician Query-Final Dx ---
ANN IZAGUIRRE 10/22/16 1209: Clinic Account Progress/Dx Physician Query: Please give diagnosis Date of Service Oct 19, 2016 at 18:47 CHINYERE MILLER MD 10/30/16 0734: Clinic Account Progress/Dx DIAGNOSIS: Diagnosis 1. IUP with twin gestation at 34 weeks 2. Uterine irritability, non labor ANN IZAGUIRRE Oct 22, 2016 12:09 CHINYERE MILLER MD Oct 30, 2016 07:34
== END 2016-10-19 20:45 ==
LOC: WSo 18:47 → LDRP 18:47 → WSo 20:45
PROVIDERS: ATTEND Family Medicine
DX: O30.003 Twin pregnancy, unspecified number of placenta and unspecified number of amniotic sacs, third trimester; Z3A.34 34 weeks gestation of pregnancy; N85.8 Other specified noninflammatory disorders of uterus; O34.593 Maternal care for other abnormalities of gravid uterus, third trimester
CPT/HCPCS: 99213

== ENCOUNTER 2016-10-24 21:23 | Observation (INO) | payer OTHER ==
[~2016-10-24] VITALS: Ht 162.6 cm; Wt 80.0 kg
[2016-10-24 21:50] VITALS: BP 124/77
[2016-10-24 21:51] LABS: BILIRUBIN,URINE NEGATIVE (NEGATIVE); KETONES,URINE 3+ (NEGATIVE); LEUKOCYTE ESTERASE ,URINE 3+ (NEGATIVE); NITRITE,URINE NEGATIVE (NEGATIVE); PH,URINE 6.5 (5-9); PROTEIN,URINE 1+ (NEGATIVE); UROBILINOGEN,URINE 1 MG/DL (NORMAL)
[2016-10-24] MEDS ORDERED: LACTATED RINGERS 1,000 ML IV ONE (21:52)
[2016-10-24 22:03] LABS: WBC,URINE 25-50 /HPF
[2016-10-24 22:04] LABS: SQUAMOUS EPITHELIAL CELL,UR 25-50 /HPF
[2016-10-24] MEDS: LACTATED RINGERS 1,000 ML IV SCH ×2 (22:07→23:23)
[2016-10-24] MEDS ORDERED: ceFAZolin 1,000 MG (ANCEF) VIAL ONE (23:12)
[2016-10-24] MEDS ORDERED: TERBUTALINE INJ 1 MG/ML (BRETHINE) AMP SC ONE (23:15)
[2016-10-24] MEDS ORDERED: ceFAZolin INJECTION 1,000 MG in NS (IVPB) 50 ML IV ONE (23:15)
--- OUTSIDE RECORDS SUMMARY | 2016-10-25 00:05 | XMS REPORT | Continuity of Care Document ---
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 sediment by light microscopy 10-25 NRG Crystals detection in urine sediment by light microscopy NONE NRG Casts detection in urine sediment by light microscopy NONE NRG Mucus detection in urine sediment by light microscopy MODERATE NRG Complete urinalysis with reflex to culture YES NRG Bacterial urine culture - 07/20/16 10:15 URINE CULTURE RESULTS <10,000/ML NRG Complete blood count (CBC) with automated white blood cell (WBC) differential - 07/20/16 10:55 Blood leukocytes automated count (number/volume) 9.3 10*3/ uL 4.3-11.0 Blood erythrocytes automated count (number/volume) 2.59 10*6 /uL 4.35-5.85 Venous blood hemoglobin measurement (mass/volume) 8.6 g/dL 11.5-16.0 Blood hematocrit (volume fraction) 26 % 35-52 Automated erythrocyte mean corpuscular volume 102 [foz_us] 80-99 Automated erythrocyte mean corpuscular hemoglobin (mass per erythrocyte) 33 pg 25-34 Automated erythrocyte mean corpuscular hemoglobin concentration measurement ( mass/volume) 33 g/dL 32-36 Automated erythrocyte distribution width ratio 12.6 % 10.0-14.5 Automated blood platelet count (count/volume) 187 10*3/uL 130-400 Automated blood platelet mean volume measurement 11.6 [foz_ us] 7.4-10.4 Automated blood neutrophils/100 leukocytes 79 % 42-75 Automated blood lymphocytes/100 leukocytes 12 % 12-44 Blood monocytes/100 leukocytes 8 % 0-12 Automated blood eosinophils/100 leukocytes 0 % 0-10 Automated blood basophils/100 leukocytes 0 % 0-10 Blood neutrophils automated count (number/volume) 7.4 10*3 1.8-7.8 Blood lymphocytes automated count (number/volume) 1.1 10*3 1.0-4.0 Blood monocytes automated count (number/volume) 0.8 10*3 0.0-1.0 Automated eosinophil count 0.0 10*3/uL 0.0-0.3 Automated blood basophil count (count/volume) 0.0 10*3/uL 0.0-0.1 Comprehensive metabolic panel - 07/20/16 10:55 Serum or plasma sodium measurement (moles/volume) 139 mmol/ L 135-145 Serum or plasma potassium measurement (moles/volume) 3.0 mmol/L 3.6-5.0 Serum or plasma chloride measurement (moles/volume) 118 mmol /L 98-107 Carbon dioxide 19 mmol/L 21-32 Serum or plasma anion gap determination (moles/volume) 2 mmol/L 5-14 Serum or plasma urea nitrogen measurement (mass/volume) 8 mg /dL 7-18 Serum or plasma creatinine measurement (mass/volume) 0.82 mg /dL 0.60-1.30 Serum or plasma urea nitrogen/creatinine mass ratio 10 NRG Serum or plasma creatinine measurement with calculation of estimated glomerular filtration rate > NRG Serum or plasma calcium measurement (mass/volume) 6.3 mg/dL 8.5-10.1 Serum or plasma total bilirubin measurement (mass/volume) 0.4 mg/dL 0.1-1.0 Serum or plasma alkaline phosphatase measurement (enzymatic activity/volume) 164 U/L 40-136 Serum or plasma aspartate aminotransferase measurement (enzymatic activity/ volume) 55 U/L 5-34 Serum or plasma alanine aminotransferase measurement (enzymatic activity/volume ) 52 U/L 0-55 Serum or plasma protein measurement (mass/volume) 4.5 g/dL 6.4-8.2 Serum or plasma albumin measurement (mass/volume) 2.4 g/dL 3.2-4.5 Serum or plasma amylase measurement (enzymatic activity/volume) - 07/20/16 10: 55 Serum or plasma amylase measurement (enzymatic activity/volume) 102 U/L 25-125 Lipase - 07/20/16 10:55 Lipase < U/L 8-78 Comprehensive metabolic panel - 07/20/16 11:49 Serum or plasma sodium measurement (moles/volume) 136 mmol/ L 135-145 Serum or plasma potassium measurement (moles/volume) 4.0 mmol/L 3.6-5.0 Serum or plasma chloride measurement (moles/volume) 106 mmol /L 98-107 Carbon dioxide 24 mmol/L 21-32 Serum or plasma anion gap determination (moles/volume) 6 mmol/L 5-14 Serum or plasma urea nitrogen measurement (mass/volume) 11 mg/dL 7-18 Serum or plasma creatinine measurement (mass/volume) 0.59 mg /dL 0.60-1.30 Serum or plasma urea nitrogen/creatinine mass ratio 19 NRG Serum or plasma creatinine measurement with calculation of estimated glomerular filtration rate > NRG Serum or plasma glucose measurement (mass/volume) 83 mg/dL 70-105 Serum or plasma calcium measurement (mass/volume) 8.7 mg/dL 8.5-10.1 Serum or plasma total bilirubin measurement (mass/volume) 0.4 mg/dL 0.1-1.0 Serum or plasma alkaline phosphatase measurement (enzymatic activity/volume) 218 U/L 40-136 Serum or plasma aspartate aminotransferase measurement (enzymatic activity/ volume) 73 U/L 5-34 Serum or plasma alanine aminotransferase measurement (enzymatic activity/volume ) 71 U/L 0-55 Serum or plasma protein measurement (mass/volume) 5.9 g/dL 6.4-8.2 Serum or plasma albumin measurement (mass/volume) 3.1 g/dL 3.2-4.5 Serum or plasma amylase measurement (enzymatic activity/volume) - 07/20/16 11: 49 Serum or plasma amylase measurement (enzymatic activity/volume) 135 U/L 25-125 Lipase - 07/20/16 11:49 Lipase 4 U/L 8-78 Complete blood count (CBC) with automated white blood cell (WBC) differential - 09/02/16 15:55 Blood leukocytes automated count (number/volume) 11.0 10*3/ uL 4.3-11.0 Blood erythrocytes automated count (number/volume) 3.16 10*6 /uL 4.35-5.85 Venous blood hemoglobin measurement (mass/volume) 10.5 g/dL 11.5-16.0 Blood hematocrit (volume fraction) 32 % 35-52 Automated erythrocyte mean corpuscular volume 100 [foz_us] 80-99 Automated erythrocyte mean corpuscular hemoglobin (mass per erythrocyte) 33 pg 25-34 Automated erythrocyte mean corpuscular hemoglobin concentration measurement ( mass/volume) 33 g/dL 32-36 Automated erythrocyte distribution width ratio 12.4 % 10.0-14.5 Automated blood platelet count (count/volume) 298 10*3/uL 130-400 Automated blood platelet mean volume measurement 11.1 [foz_ us] 7.4-10.4 Automated blood neutrophils/100 leukocytes 75 % 42-75 Automated blood lymphocytes/100 leukocytes 16 % 12-44 Blood monocytes/100 leukocytes 9 % 0-12 Automated blood eosinophils/100 leukocytes 1 % 0-10 Automated blood basophils/100 leukocytes 1 % 0-10 Blood neutrophils automated count (number/volume) 8.2 10*3 1.8-7.8 Blood lymphocytes automated count (number/volume) 1.7 10*3 1.0-4.0 Blood monocytes automated count (number/volume) 0.9 10*3 0.0-1.0 Automated eosinophil count 0.1 10*3/uL 0.0-0.3 Automated blood basophil count (count/volume) 0.1 10*3/uL 0.0-0.1 Comprehensive metabolic panel - 09/02/16 15:55 Serum or plasma sodium measurement (moles/volume) 137 mmol/ L 135-145 Serum or plasma potassium measurement (moles/volume) 3.8 mmol/L 3.6-5.0 Serum or plasma chloride measurement (moles/volume) 107 mmol /L 98-107 Carbon dioxide 20 mmol/L 21-32 Serum or plasma anion gap determination (moles/volume) 10 mmol/L 5-14 Serum or plasma urea nitrogen measurement (mass/volume) 7 mg /dL 7-18 Serum or plasma creatinine measurement (mass/volume) 0.57 mg /dL 0.60-1.30 Serum or plasma urea nitrogen/creatinine mass ratio 12 NRG Serum or plasma creatinine measurement with calculation of estimated glomerular filtration rate > NRG Serum or plasma glucose measurement (mass/volume) 110 mg/dL 70-105 Serum or plasma calcium measurement (mass/volume) 8.5 mg/dL 8.5-10.1 Serum or plasma total bilirubin measurement (mass/volume) 0.9 mg/dL 0.1-1.0 Serum or plasma alkaline phosphatase measurement (enzymatic activity/volume) 293 U/L 40-136 Serum or plasma aspartate aminotransferase measurement (enzymatic activity/ volume) 60 U/L 5-34 Serum or plasma alanine aminotransferase measurement (enzymatic activity/volume ) 87 U/L 0-55 Serum or plasma protein measurement (mass/volume) 5.9 g/dL 6.4-8.2 Serum or plasma albumin measurement (mass/volume) 2.8 g/dL 3.2-4.5 Total and fractionated bile acids measurement - 09/02/16 16:05 Serum cholate measurement (moles/volume) > % 0.0-1.9 Deoxycholic acid measurement 8.0 % 0.0- 2.5 Ursodeoxycholic acid measurement 0.3 % 0.0-1.0 Chenodeoxycholic acid measurement 33.3 % 0.0-3.4 Serum bile acid measurement (moles/volume) > % 0.0-7.0 Encounters ACCT No. Visit Date/Time Discharge Status Pt. Type Provider Facility Loc./Unit Complaint [id number] 05/02/2012 12:46:00 05/02/2012 23: 59:59 [facility] MARY GAYLE [id number] 02/20/2012 12:51:00 02/20/2012 23: 59:59 [facility] MARY GAYLE
[2016-10-25] MEDS ORDERED: TERBUTALINE INJ 1 MG/ML (BRETHINE) AMP SC ONE (00:45)
[2016-10-25] MEDS ORDERED: ZOLPIDEM 5 MG (AMBIEN) TAB PO ONE (02:00)
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
--- NOTE | 2016-10-30 14:26 | Physician Query-Final Dx ---
ANN IZAGUIRRE 10/30/16 1426: Clinic Account Progress/Dx Physician Query: Please give diagnosis Date of Service CHINYERE MILLER MD 11/12/16 0822: Clinic Account Progress/Dx DIAGNOSIS: Diagnosis 1. IUP with twin at 35 weeks 2. Uterine irritability/contractions--possible labor 3. Transfer to [place] ANN IZAGUIRRE Oct 30, 2016 14:26 CHINYERE MILLER MD Nov 12, 2016 08:22
== END 2016-10-25 05:54 | disposition short-term general hospital (02) ==
LOC: LDRP 21:23 → WSo 21:23 → LDRP 21:28 → WSo 23:13 → UNDOADMOB 23:13 → UNDODISOB 10-25 06:00 → WSo 10-25 06:00 → EDSTATUS 10-25 15:27
PROVIDERS: ADMIT Family Medicine; ATTEND Family Medicine
DX: O34.593 Maternal care for other abnormalities of gravid uterus, third trimester (principal); N85.8 Other specified noninflammatory disorders of uterus; O30.003 Twin pregnancy, unspecified number of placenta and unspecified number of amniotic sacs, third trimester; Z3A.35 35 weeks gestation of pregnancy
CPT/HCPCS: 81000; 87088; 96361; 96372; 96374; 99211; 99214; G0378

== ENCOUNTER 2016-10-25 20:07 | Outpatient (CLI) | payer OTHER ==
[~2016-10-25] VITALS: Ht 162.6 cm; Wt 80.0 kg
[2016-10-25] MEDS ORDERED: LACTATED RINGERS 1,000 ML IV ONE (20:47)
[2016-10-25 21:00] VITALS: BP 124/72
[2016-10-25] MEDS ORDERED: LACTATED RINGERS 1,000 ML IV SCH (21:15)
--- NOTE | 2016-10-25 21:39 | Short Stay Summary ---
History of Present Illness History of Present Illness Reason for visit/HPI 21-year-old 2 term 1 L1 female currently with 20 gestation at 34 weeks 2 days gestation who presents with uterine contractions. Patient has had contractions off and on over the past one week. She has presented to women's services and most recently yesterday evening with contractions that were calmed down with fluids as well as 2 doses of Brethine. She has received 2 doses of betamethasone at the end of August 2016. Her has been complicated due to the 20 gestation with twin A being vertex and twin B being breech. She also has had cholestasis of and this was treated with ursodiol. Her itching has been under control with the treatment of ursodiol. Earlier this evening the late afternoon she began ru again closer together every 2- 3 minutes. Her cervix is at 2 cm with presenting part lower than yesterday and effacement at 40 percent compared to 50 percent. Date of Admission October 25, 2016 Date of Discharge October 25, 2016 Time Seen by Provider: 21:00 Attending Physician Chinyere Mccormick MD Admitting Physician Chinyere Mccormick MD Consult Allergies and Home Medications Allergies Coded Allergies: morphine (Verified Allergy, Mild, 10/24/16) Home Medications Ferrous Sulfate 325 Mg Tablet, 325 MG PO DAILY, (Reported) Hydroxyzine Pamoate 50 Mg Capsule, 50 MG PO Q4H PRN for ITCHING, (Reported) Ucp509/FA/Omega3/Dha/Fish Oil 1 Each Tab.chew, 2 EACH PO DAILY, (Reported) Ursodiol 300 Mg Capsule, 300 MG PO BID, (Reported) Past Vumhsaq-Tpnifa-Gihkih Hx Patient Social History Marrital Status: domestic partnership Number of Children: 1 Number of living children: 1 Employed/Student: employed (At [employer]) Smoking Status: Current Everyday Smoker Type Used: Cigarettes Recent Foreign Travel: No Contact w/other who traveled: No Recent Hopitalizations: No Recent Infectious Disease Expo: No Immunizations Up To Date Tetanus Booster (TDap): Unknown Date of Influenza Vaccine: Feb 20, 2016 Seasonal Allergies Seasonal Allergies: No Surgeries HX Surgeries: Yes (PILONIDAL CYST REMOVAL) Surgeries: Gallbladder Respiratory Hx Respiratory Disorders: No Cardiovascular Hx Cardiovascular Disorders: No Neurological Hx Neurological Disorders: No Reproductive System Hx Reproductive Disorders: No Sexually Transmitted Disease: No Female Reproductive Disorders: Denies Genitourinary Hx Genitourinary Disorders: No Gastrointestinal Hx Gastrointestinal Disorders: Yes Gastrointestinal Disorders: Gall Bladder Disease Musculoskeletal Hx Musculoskeletal Disorders: No Endocrine Hx Endocrine Disorders: No HEENT HX ENT Disorders: No Cancer Hx Cancer: No Psychosocial Hx Psychiatric Problems: Yes (OFF MEDICATION) Behavioral Health Disorders: Anxiety Integumentary HX Skin/Integumentary Disorder: No Blood Transfusions Hx Blood Disorders: No Adverse Reaction to a Blood Tr: No Family Medical History Significant Family History: No Pertinent Family Hx Family Hx: Family history: Diabetes mellitus 19 FATHER, Onset:Unknown grandfather, Onset:Unknown Family history: Hypertension grandmother, Onset:Unknown Constitutional: see HPI Physical Exam Vital Signs Capillary Refill : General Appearance: No Apparent Distress Respiratory: Lungs Clear Cardiovascular: Regular Rate, Rhythm Comments Cervix is noted to be dilated to 2 to 2-1/2 cm with 60 percent effaced. Presenting part at -3 vertex twin A. Short Stay Diagnosis Discharge Diagnosis-Short Stay Admission Diagnosis: 1. Intrauterine twin gestation diamniotic dichorionic at 34 weeks 2 days gestation in early labor 2. Cholestasis of Final Discharge Diagnosis: 1. Intrauterine twin gestation diamniotic dichorionic at 34 weeks 2 days gestation in early labor 2. Cholestasis of Conclusion Conclusion/Plan Dr. Tam was contacted at [facility] and history given to him as per the history of present illness. He except her in transfer and arrangements are being made by emergency transport team to take patient to [facility]. As of now she does have IV running lactated Ringer's at 125 mL per hour. She is deemed stable. CHINYERE MCCORMICK MD Oct 25, 2016 21:39
[2016-10-25 22:00] VITALS: BP 110/62
== END 2016-10-25 22:04 | disposition designated cancer center or children's hospital (05) ==
LOC: WSo 20:07 → LDRP 20:07 → WSo 22:04
PROVIDERS: ATTEND Family Medicine
DX: O60.03 Preterm labor without delivery, third trimester (principal); O26.613 Liver and biliary tract disorders in pregnancy, third trimester; O30.043 Twin pregnancy, dichorionic/diamniotic, third trimester; F17.210 Nicotine dependence, cigarettes, uncomplicated; O99.333 Smoking (tobacco) complicating pregnancy, third trimester; Z3A.34 34 weeks gestation of pregnancy
CPT/HCPCS: 96360; 99213

== ENCOUNTER → 2017-07-31 | Outpatient (CLI) | payer OTHER, MEDICAID ==
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
== END ==
LOC: RAD 14:49
PROVIDERS: ATTEND Otolaryngology Otolaryngology/Facial Plastic Surgery
DX: S09.93XA Unspecified injury of face, initial encounter (principal)
CPT/HCPCS: 70486

== ENCOUNTER → 2017-10-02 | Outpatient (CLI) | payer OTHER, MEDICAID ==
[~2017-10-02] MED LIST changes: +DOCU-143 PO
--- NOTE | 2017-10-02 15:20 | Diagnostic Imaging Report ---
INDICATION: Mass at the level of the tailbone. EXAMINATION: Soft tissue ultrasound. FINDINGS: At the site of patient's palpable abnormality, there is an approximately 2.7 x 1.5 x 2.0 cm complex hypoechoic nodule which may represent complex cyst near the level of the coccyx. No definite communication with rectum or bowel is identified. No internal blood flow is documented. IMPRESSION: Probable complex cyst near the coccyx could represent a pilonidal cyst or infected sebaceous cyst. Clinical correlation is recommended. Ultrasound-guided aspiration or surgical excision could be considered. Dictated by: Dictated on workstation # [id number]
== END ==
LOC: RAD 14:37
PROVIDERS: ATTEND Surgery
DX: R22.2 Localized swelling, mass and lump, trunk (principal)
CPT/HCPCS: 76999

== ENCOUNTER 2017-10-03 10:14 | Day surgery (SDC) | payer OTHER, MEDICAID ==
[~2017-10-03] VITALS: Ht 162.6 cm; Wt 52.2 kg
[~2017-10-03 10:14] MED LIST changes: -DOCU-143 PO
[2017-10-03 10:30] VITALS: BP 109/67
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
[2017-10-03] MEDS ORDERED: BUPIVACAINE 0.5% 30 ML (SENSORCAINE) VIAL ONE (10:45)
[2017-10-03] MEDS ORDERED: LIDOCAINE 1% INJ 20 ML 20 ML VIAL ONE (10:45)
[2017-10-03] MEDS: LACTATED RINGERS 1,000 ML IV SCH ×3 (11:00→12:00)
[2017-10-03] MEDS ORDERED: ceFAZolin 1,000 MG (ANCEF) VIAL ONE (11:16)
--- NOTE | 2017-10-03 11:16 | Progress Note-Pre Operative ---
Pre-Operative Progress Note H&P Reviewed The H&P was reviewed, patient examined and no changes noted. Date Seen by Provider: Oct 03, 2017 Time Seen by Provider: 11:13 Date H&P Reviewed: Oct 03, 2017 Time H&P Reviewed: 11:13 Pre-Operative Diagnosis: pilonidal cyst DELISA LANDA DO Oct 03, 2017 11:16
[2017-10-03] MEDS ORDERED: proPOfol 200 MG/20 ML (DIPRIVAN) VIAL IV ONE (11:22)
[2017-10-03] MEDS ORDERED: fentaNYL INJECTION 100 MCG/2 ML AMP ONE (11:22)
[2017-10-03] MEDS ORDERED: MIDAZOLAM 2 MG/2 ML (VERSED) VIAL ONE (11:23)
[2017-10-03] MEDS ORDERED: ceFAZolin 1 GM/NS 50 ML IVPB IV ONE ×2 (11:30)
[2017-10-03] MEDS ORDERED: DEXAMETHASONE 10 MG/ML (DECADRON) 1 ML VIAL ONE (11:39)
[2017-10-03] MEDS ORDERED: ONDANSETRON 4 MG/2 ML (SDV) Z0FRAN ONE ×2 (11:39→12:54)
[2017-10-03] MEDS ORDERED: ROCURONIUM 10 MG/ML 5 ML SYRINGE IV ONE (11:39)
[2017-10-03] MEDS ORDERED: SEVOFLURANE (ULTANE) 15 ML INHAL SOLN ONE ×4 (11:39→12:25)
[2017-10-03] MEDS ORDERED: LIDOCAINE PF 2% 5 ML (XYLOCAINE) VIAL ONE (11:39)
[2017-10-03] MEDS ORDERED: GLYCOPYRROLATE 0.2 MG/ML (ROBINUL) 2 ML VIAL ONE (12:21)
[2017-10-03] MEDS ORDERED: NEOSTIGMINE 1 MG/ML 5 ML SYRINGE ONE (12:21)
[2017-10-03] MEDS ORDERED: DOCU-143 PO (12:28)
[2017-10-03] MEDS ORDERED: ACHD5005 PO (12:28)
--- NOTE | 2017-10-03 12:29 | Discharge Inst-Simple/Standard ---
Discharge Inst-Standard Discharge Medications New, Converted or Re-Newed RX: RX on Chart Patient Instructions/Follow Up Plan of Care/Instructions/FU: 2 weeks Schmidt Activity as Tolerated: No Discharge Diet: Regular Diet Other Inst to Patient Follow up Appt: Make appointment for 1 week. Instructions: No lifting greater than 10 pounds. No strenuous activity. May shower in 24 hours, no tub bath or soaking. Use incentive spirometer at home as directed. No Smoking Skin/Wound Care: keep clean and dry. change bandages every 24 hours or if saturated. Symptoms to Report: Appetite Changes, Extremity Discoloration, Numbness/Tingling, Swelling Increased , Bleeding Excessive, Eyesight Changes, Pain Increased, Urine Color Change, Constipation(Persistent), Fever over 101 degree F, Pain/Pressure in chest, Urinating Difficulty, Cough Up/Vomit Blood, Heart Beat Irreg/Pounding, Pain/ Pressure in jaw, Vaginal Bleeding Increase, Cramps in feet or legs, Lightheadedness, Pain/Pressure in shoulder, Diarrhea(Persistent), Memory Changes Suddenly, Questions/Concerns, Weight gain consecutive days, Dizziness/ Fainting, Nausea/Vomiting, Shortness of Breath, Weight gain over 2 pounds If questions or concerns contact your physician Or seek help at emergency department. DELISA SCHMIDT DO Oct 03, 2017 12:29
[2017-10-03] MEDS ORDERED: morphine INJ 10 MG/ML 1ML (SYR OR VIAL) IVP PRN (13:00)
[2017-10-03] MEDS ORDERED: HYDROmorphone 1 MG/ML (DILAUDID) 1 ML SYRINGE IV PRN (13:00)
[2017-10-03] MEDS ORDERED: ONDANSETRON 4 MG/2 ML (SDV) Z0FRAN IVP PRN (13:00)
--- NOTE | 2017-10-03 13:26 | Anesthesia-General Post-Op ---
General Patient Condition Mental Status/LOC: Same as Preop Cardiovascular: Satisfactory Nausea/Vomiting: Absent Respiratory: Satisfactory Pain: Controlled Complications: Absent Post Op Complications Complications None Follow Up Care/Instructions Patient Instructions None needed. Anesthesia/Patient Condition Patient Condition Patient is doing well, no complaints, stable vital signs, no apparent adverse anesthesia problems. No complications reported per nursing. D/C home per [facility] Criteria: Yes EZIO RUSHING CRNA Oct 03, 2017 13:25
[2017-10-03 13:35] VITALS: BP 115/82
[2017-10-03] MEDS ORDERED: HYDROcodone/APAP 5 MG/325 MG (LORTAB) TAB PO ONE (14:00)
[2017-10-03] MEDS ORDERED: PROMETHAZINE INJ 25 MG/ML (PHENERGAN) AMP IVP ONE (14:00)
--- NOTE | 2017-10-03 14:01 | Progress Note-Post Operative ---
Post-Operative Progess Note Surgeon (s)/Director Equipment (s) Surgeon DELISA LANDA DO Director Equipment: na Pre-Operative Diagnosis pilonidal cyst Post-Operative Diagnosis same Procedure & Operative Findings Date of Procedure 10/03/17 Procedure Performed/Findings re-excision pilonidal cyst 3 x 2.7cm Anesthesia Type gen Estimated Blood Loss Estimated blood loss (mL): min Specimens/Packing Specimens Removed cyst DELISA LANDA DO Oct 03, 2017 14:01
[2017-10-03 14:05] VITALS: BP 111/65
[2017-10-03] MEDS ORDERED: PROMETHAZINE INJ 25 MG/ML (PHENERGAN) AMP ONE (14:06)
[2017-10-03] MEDS ORDERED: HYDROcodone/APAP 5 MG/325 MG (LORTAB) TAB ONE (14:06)
[2017-10-03 14:40] VITALS: BP 100/63
[2017-10-03 15:10] VITALS: BP 100/63
--- NOTE | 2017-10-03 17:03 | OPERATIVE REPORT ---
DATE OF SERVICE: 10/03/2017 PREOPERATIVE DIAGNOSIS: Recurrent pilonidal cyst. POSTOPERATIVE DIAGNOSIS: Recurrent pilonidal cyst. PROCEDURE: Reexcision pilonidal cyst 3 x 2.7 cm. SURGEON: Delisa Schmidt DO. ANESTHESIA: General. ESTIMATED BLOOD LOSS: Minimal. COMPLICATIONS: None. SPECIMEN: Cyst. INDICATIONS: The patient is a 22-year-old female who previously had pilonidal cyst removal. The patient having increased swelling and pain to the pilonidal area. There she had an ultrasound demonstrating a complex cyst. She understands risks and benefits of procedure and wished to proceed with procedure. Consent was signed on the chart. DESCRIPTION OF PROCEDURE: The patient was taken to the operating suite. She was prepped and draped in sterile fashion. Surgical pause was performed. She was in the prone position. An incision was made over the palpable mass subcutaneous tissues were entered. The cyst was encountered and Raegan were used to dissect around in the lateral aspect. The dissection was taken down to the presacral fascia and then the cyst was dissected around. The extended just distal to the tip of the coccyx and slightly wrapped around anteriorly. Careful dissection was performed with both sharp and cautery and blunt dissection removing the cyst in its entirety. Overall dimensions are 3 x 2.7 cm. Wound was then irrigated with copious amounts of irrigation. Hemostasis was achieved. The wound was closed with a layered closure. The deep tissues were reapproximated using 3-0 Vicryl. The subcutaneous tissues were reapproximated using 3-0 Vicryl. The skin was then closed using 3-0 and 2-0 Prolene in both vertical mattress and simple interrupted fashion. The area was then washed and dried and sterile bandage was applied. The patient tolerated procedure well without any complications. She was taken to recovery room in stable condition. Job ID: [id number] DocumentID: [id number] Dictated Date: 10/03/2017 14:04:26 Director Of Financial Reporting Date: 10/03/2017 17:02:55 Dictated By: DELISA SCHMIDT DO
== END 2017-10-03 15:10 | disposition home or self-care (01) ==
LOC: SDC 10:14
PROVIDERS: ATTEND Surgery
DX: L05.91 Pilonidal cyst without abscess (principal); F17.210 Nicotine dependence, cigarettes, uncomplicated
CPT/HCPCS: 84703; 87081; 88304; 94664

== ENCOUNTER → 2017-10-22 | Outpatient (CLI) | payer OTHER, MEDICAID ==
[~2017-10-22] MED LIST changes: +DOCU-143 PO
== END ==
LOC: CARD 11:12
PROVIDERS: ATTEND Family Medicine
DX: R00.2 Palpitations (principal)
CPT/HCPCS: 93005; 93225; 93226

== ENCOUNTER → 2017-11-04 | Outpatient (CLI) | payer OTHER, MEDICAID ==
[~2017-11-04] MED LIST changes: +IOHEXOL 350 MG/ML 100 ML (OMNIPAQUE 350) VIAL IV ONE; +NS 250 ML (IVPB) BAG IV ONE
--- NOTE | 2017-11-04 16:38 | Diagnostic Imaging Report ---
PROCEDURE: CT pelvis with contrast. TECHNIQUE: Oral and intravenous contrast were administered with pelvic CT performed. DATE: November 04, 2017. INDICATION: 22-year-old female, coccygeal pain and swelling. COMPARISON: CT abdomen and pelvis, September 15, 2014. FINDINGS: There is a gas-containing fluid collection within the subcutaneous tissues below the level of the coccyx which measures 2.4 x 2.1 x 2.2 cm in size. This is most compatible with an abscess. There is no cortical or aggressive bone destruction. There is heterogeneous enhancement of the uterus which is nonspecific. There is no sizable-volume free pelvic fluid. There is no identified free air within the pelvis. There is no identified drainable fluid collection specifically within the pelvic cavity. There is no identified abnormally enlarged lymph node within the pelvis meeting CT size criteria for adenopathy. The visualized portions of the intestinal tract are not distended. There is no identified acute bony abnormality. IMPRESSION: 1. Peripheral enhancing fluid collection within the subcutaneous tissues below the level of the coccyx, most compatible with an abscess, measuring 2.4 x 2.1 x 2.2 cm in size. 2. No CT evidence of osteomyelitis. Dictated by: Dictated on workstation # [id number]
== END ==
LOC: RAD 15:33
PROVIDERS: ATTEND Surgery
DX: M53.3 Sacrococcygeal disorders, not elsewhere classified (principal)
CPT/HCPCS: 72193

== ENCOUNTER 2017-11-08 09:25 | Day surgery (SDC) | payer OTHER, MEDICAID ==
[~2017-11-08] VITALS: Ht 162.6 cm; Wt 52.2 kg
[~2017-11-08 09:25] MED LIST changes: -IOHEXOL 350 MG/ML 100 ML (OMNIPAQUE 350) VIAL IV ONE; -NS 250 ML (IVPB) BAG IV ONE
[2017-11-08] MEDS ORDERED: MIDAZOLAM 2 MG/2 ML (VERSED) VIAL ONE (09:35)
[2017-11-08] MEDS ORDERED: proPOfol 200 MG/20 ML (DIPRIVAN) VIAL IV ONE (09:35)
[2017-11-08] MEDS ORDERED: LIDOCAINE PF 2% 5 ML (XYLOCAINE) VIAL ONE (09:35)
[2017-11-08] MEDS ORDERED: ONDANSETRON 4 MG/2 ML (SDV) Z0FRAN ONE (09:35)
[2017-11-08] MEDS ORDERED: fentaNYL INJECTION 100 MCG/2 ML AMP ONE (09:35)
[2017-11-08] MEDS ORDERED: DEXAMETHASONE 10 MG/ML (DECADRON) 1 ML VIAL ONE (09:35)
[2017-11-08] MEDS ORDERED: SEVOFLURANE (ULTANE) 15 ML INHAL SOLN ONE (09:35)
[2017-11-08] MEDS ORDERED: SUCCINYLCHOLINE INJ 100 MG/5 ML SYR ONE (09:43)
[2017-11-08 09:50] VITALS: BP 109/83
[2017-11-08] MEDS ORDERED: ceFAZolin 1,000 MG (ANCEF) VIAL ONE (09:58)
[2017-11-08] MEDS ORDERED: NS (IVPB) 50 ML ONE (09:58)
[2017-11-08] MEDS ORDERED: ceFAZolin INJECTION 1,000 MG in NS (IVPB) 50 ML IV ONE (10:00)
[2017-11-08 10:06] LABS: BASOPHILS % (AUTO) 1 % (0-10); EOSINOPHILS # (AUTO) 0.1 10^3/uL (0.0-0.3); EOSINOPHILS % (AUTO) 2 % (0-10); HEMATOCRIT 41 % (35-52); HEMOGLOBIN 13.8 G/DL (11.5-16.0); LYMPHOCYTES # (AUTO) 2.6 X 10^3 (1.0-4.0); LYMPHOCYTES % (AUTO) 46 % (12-44); MEAN CORPUSCULAR HEMOGLOBIN 32 PG (25-34); MEAN CORPUSCULAR HGB CONC 34 G/DL (32-36); MEAN CORPUSCULAR VOLUME 96 FL (80-99); MONOCYTES # (AUTO) 0.6 X 10^3 (0.0-1.0); MONOCYTES % (AUTO) 10 % (0-12); NEUTROPHILS # (AUTO) 2.4 X 10^3 (1.8-7.8); NEUTROPHILS % (AUTO) 42 % (42-75); PLATELET COUNT 211 10^3/uL (130-400); RED BLOOD COUNT 4.27 10^6/uL (4.35-5.85); WHITE BLOOD COUNT 5.6 10^3/uL (4.3-11.0)
[2017-11-08] MEDS ORDERED: CATHETER FLUSH 10 ML SYR IV PRN (10:15)
[2017-11-08] MEDS ORDERED: LACTATED RINGERS 1,000 ML IV ONE (10:15)
[2017-11-08] MEDS ORDERED: BUPIVACAINE 0.5% 30 ML (SENSORCAINE) VIAL ONE (10:44)
[2017-11-08] MEDS ORDERED: LIDOCAINE 1% INJ 20 ML 20 ML VIAL ONE (10:44)
--- NOTE | 2017-11-08 10:50 | Progress Note-Pre Operative ---
Pre-Operative Progress Note H&P Reviewed The H&P was reviewed, patient examined and no changes noted. Date Seen by Provider: Nov 08, 2017 Time Seen by Provider: 10:43 Date H&P Reviewed: Nov 08, 2017 Time H&P Reviewed: 10:43 Pre-Operative Diagnosis: pilonidal cyst DELISA LANDA DO Nov 08, 2017 10:49
--- NOTE | 2017-11-08 11:46 | Progress Note-Post Operative ---
Post-Operative Progess Note Surgeon (s)/Ceramics Instructor (s) Surgeon DELISA LANDA DO Ceramics Instructor: na Pre-Operative Diagnosis pilonidal cyst Post-Operative Diagnosis same Procedure & Operative Findings Date of Procedure 11/08/17 Procedure Performed/Findings re-excision pilonidal cyst 4x4.5 cm skin and subcutaneous tissue Anesthesia Type general Estimated Blood Loss Estimated blood loss (mL): min Specimens/Packing Specimens Removed skin and subcutaneous tissue DELISA LANDA DO Nov 08, 2017 11:46
[2017-11-08] MEDS ORDERED: ACHD5005 PO (11:48)
--- NOTE | 2017-11-08 11:54 | Discharge Inst-Simple/Standard ---
Discharge Inst-Standard Discharge Medications New, Converted or Re-Newed RX: RX on Chart Patient Instructions/Follow Up Plan of Care/Instructions/FU: Dr. Schmidt 2 weeks. Irrigate daily and pack daily and as needed if saturated. Activity as Tolerated: Yes Discharge Diet: Regular Diet Other Inst to Patient Follow up Appt: Make appointment for 2 week. Instructions: No lifting greater than 10 pounds. No strenuous activity. May shower in 24 hours, no tub bath or soaking. Use incentive spirometer at home as directed. No Smoking Skin/Wound Care: Irrigate with saline and pack on daily basis. Symptoms to Report: Appetite Changes, Extremity Discoloration, Numbness/Tingling, Swelling Increased , Bleeding Excessive, Eyesight Changes, Pain Increased, Urine Color Change, Constipation(Persistent), Fever over 101 degree F, Pain/Pressure in chest, Urinating Difficulty, Cough Up/Vomit Blood, Heart Beat Irreg/Pounding, Pain/ Pressure in jaw, Vaginal Bleeding Increase, Cramps in feet or legs, Lightheadedness, Pain/Pressure in shoulder, Diarrhea(Persistent), Memory Changes Suddenly, Questions/Concerns, Weight gain consecutive days, Dizziness/ Fainting, Nausea/Vomiting, Shortness of Breath, Weight gain over 2 pounds If questions or concerns contact your physician Or seek help at emergency department. DELISA SCHMIDT DO Nov 08, 2017 11:54
[2017-11-08] MEDS ORDERED: morphine INJ 10 MG/ML 1ML (SYR OR VIAL) ONE (11:57)
[2017-11-08] MEDS: morphine INJ 10 MG/ML 1ML (SYR OR VIAL) IVP PRN ×2 (12:00→12:05)
[2017-11-08] MEDS ORDERED: HYDROmorphone 1 MG/ML (DILAUDID) 1 ML SYRINGE ONE (12:24)
[2017-11-08 12:50] VITALS: BP 134/87
[2017-11-08] MEDS ORDERED: HYDROcodone/APAP 5 MG/325 MG (LORTAB) TAB ONE (12:55)
[2017-11-08] MEDS ORDERED: HYDROcodone/APAP 5 MG/325 MG (LORTAB) TAB PO ONE (13:00)
[2017-11-08 13:20] VITALS: BP 94/52
[2017-11-08 13:50] VITALS: BP 113/72
[2017-11-08 14:50] VITALS: BP 126/87
--- NOTE | 2017-11-08 23:42 | OPERATIVE REPORT ---
DATE OF SERVICE: 11/08/2017 PREOPERATIVE DIAGNOSIS: Pilonidal cyst. POSTOPERATIVE DIAGNOSIS: Pilonidal cyst. PROCEDURE: Reexcision of pilonidal cyst 4 x 4.5 cm of skin and subcutaneous tissue. SURGEON: Delisa Schmidt DO ANESTHESIA: General. ESTIMATED BLOOD LOSS: Minimal. COMPLICATIONS: None. INDICATIONS: The patient is a 22-year-old female who recently had excision of pilonidal cyst. Postoperatively, the patient fell and had a small opening in the skin, which continued to have drainage. She has quite a bit of tenderness on the more superior portion and some fullness as well. The patient is not having any improvement. Therefore, we discussed opening this area and re-excising the tissue. She understands risks and benefits and wishes to proceed. Consent was signed on the chart. DESCRIPTION OF PROCEDURE: The patient was taken to the operating suite, she was prepped and draped in sterile fashion in the prone position. A timeout was performed. The incision was reopened noting some inflamed tissue on the more proximal and more superior portion of the wound. Difficult to tell if this is recurrence of the cystic material or not. A cautery was used to dissect down around the area of induration and the part of the skin and subcutaneous tissues were then removed. There was no purulent material present. The wound was then irrigated with copious amounts of irrigation. Hemostasis had been achieved. Overall, dimensions 4 x 4.5 cm down to the sacral fascia. The wound was then packed with 0.25 inch iodoform gauze. A sterile bandage was applied. The patient tolerated procedure well without complications. She was taken to recovery room in stable condition. Job ID: [id number] DocumentID: [id number] Dictated Date: 11/08/2017 18:31:19 Pulp Drier Date: 11/08/2017 23:42:03 Dictated By: DELISA SCHMIDT DO
== END 2017-11-08 14:50 | disposition home or self-care (01) ==
LOC: SDC 09:25
PROVIDERS: ATTEND Surgery
DX: L05.91 Pilonidal cyst without abscess (principal); F17.210 Nicotine dependence, cigarettes, uncomplicated
CPT/HCPCS: 36415; 84703; 85025; 87081

== ENCOUNTER → 2017-11-09 | Outpatient (CLI) | payer OTHER, MEDICAID ==
[~2017-11-09] VITALS: Ht 162.6 cm; Wt 52.2 kg
[2017-11-09 13:24] VITALS: BP 122/82
== END ==
LOC: 4THo 12:09
PROVIDERS: ATTEND Surgery
DX: Z48.01 Encounter for change or removal of surgical wound dressing (principal)
CPT/HCPCS: 99212

== ENCOUNTER 2019-10-02 22:14 | Emergency (ER) | payer MEDICAID, OTHER ==
[~2019-10-02] VITALS: Ht 162 cm; Wt 51.7 kg
[2019-10-02] MEDS ORDERED: DULO60CA59 (22:45)
[2019-10-02] MEDS ORDERED: AMOX1TAB12 (22:45)
[2019-10-02] MEDS ORDERED: HYDR-3781 (22:45)
[2019-10-02] MEDS ORDERED: LACTATED RINGERS 1,000 ML IV ONE (22:49)
[2019-10-02] MEDS ORDERED: cefTRIAXone FOR IV USE 1,000 MG in WATER (STERILE) FOR INJECTION 10 ML IV ONE (23:00)
[2019-10-02] MEDS ORDERED: ONDANSETRON 4 MG/2 ML (SDV) Z0FRAN IVP ONE (23:00)
--- NOTE | 2019-10-02 23:00 | ED General ---
General Chief Complaint: Dizziness/Syncope Stated Complaint: DX W/ STREP THROAT/DEHYDRATION/FEVER/COUGH Nursing Triage Note: pt presents to ed with complaints of fever, chills, body aches, dizziness, syncopal epsiodes, and sore throat. pt was seen at [facility] today and tested for covid. pt tested positive for strep and negative for flu. 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 DID HAVE WORK UP'S IN YEARS PAST. NO DX PER PT. C/O GENERALIZED WEAKNESS NO NAUSEA/VOMITING HAS BEEN ANXIOUS AND HER ARMS HAVE FELT TINGLY OFF AND ON SEEN AT [facility] TODAY AT 1600 FOR THESE COMPLAINTS AND TESTED POSITIVE FOR STREP, AND GIVEN RX FOR AUGMENTIN--HAS HAD ONE DOSE ALSO TESTED FOR FLU ( NEGATIVE ) AND COVID-19 TESTING WAS DONE--RESULTS NOT KNOWN PCP: [facility] Allergies and Home Medications Allergies Coded Allergies: No Known Drug Allergies (Unverified , 10/03/17) Home Medications Docusate Sodium 100 Mg Capsule, 100 MG PO DAILY Prescribed by: DELISA LANDA on 10/03/17 1228 Hydrocodone Bit/Acetaminophen 1 Tab Tab, 1 TAB PO Q4H PRN Prescribed by: DELISA LANDA on 11/08/17 1148 Patient Home Medication List Home Medication List Reviewed: Yes Review of Systems Review of Systems Constitutional: see HPI, chills, dizziness, fever, malaise, weakness EENTM: see HPI, nose congestion, throat pain Respiratory: see HPI, cough; No short of breath, No wheezing Cardiovascular: see HPI; No chest pain, No edema, No palpitations; syncope Gastrointestinal: no symptoms reported; No abdominal pain, No diarrhea, No nausea, No vomiting Genitourinary: no symptoms reported LMP: August 26, 2019 Musculoskeletal: see HPI (BODY ACHES), back pain (ONGOING, BUT MORE SORE SINCE SHE "PASSED OUT" THIS MORNING) Skin: no symptoms reported; No rash Psychiatric/Neurological: See HPI, Anxiety; Denies Headache, Denies Numbness, Denies Seizure; Tingling; Denies Weakness Hematologic/Lymphatic: No Symptoms Reported Immunological/Allergic: no symptoms reported Past Yeliaki-Ievrlh-Tchywz Hx Past Med/Social Hx: Reviewed and Corrections made Patient Social History Alcohol Use: Denies Use Recreational Drug Use: No Smoking Status: Current Everyday Smoker Type Used: Cigarettes Recent Foreign Travel: No Contact w/Someone Who Travel: No Recent Infectious Disease Expo: No Recent Hopitalizations: No Physical Abuse: No Sexual Abuse: No Mistreated: No Fear: No Immunizations Up To Date Tetanus Booster (TDap): Unknown Date of Influenza Vaccine: Jan 20, 2017 Seasonal Allergies Seasonal Allergies: No Past Medical History Surgeries: Yes (PILONIDAL CYST REMOVAL X 3, wisdom teeth) Section, Gallbladder, Tonsillectomy, Tubal Ligation Respiratory: No Cardiac: Yes (DIZZINESS AND SYNCOPE FOR YEARS) Syncope Neurological: No Reproductive Disorders: No Female Reproductive Disorders: 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 History: Tubal Ligation Sexually Transmitted Disease: No Genitourinary: No Gastrointestinal: Yes (S/P CHOLECYSTECTOMY) Gall Bladder Disease Musculoskeletal: No Endocrine: No HEENT: Yes (S/P TONSILLECTOMY) Tonsilitis Cancer: No Psychosocial: Yes (OFF MEDICATION) Anxiety Integumentary: No Blood Disorders: No Adverse Reaction/Blood Tranf: No Family Medical History Family history: Diabetes mellitus 19 FATHER, Onset:Unknown grandfather, Onset:Unknown Family history: Hypertension grandmother, Onset:Unknown No Pertinent Family Hx Physical Exam Vital Signs Vital Signs - First Documented 10/02/19 10/03/19 22:36 00:17 Temp 36.8 Pulse 88 Resp 18 B/P (MAP) 138/98 (111) Pulse Ox 99 O2 Delivery Room Air Capillary Refill : Less Than 3 Seconds Height, Weight, BMI Height: 5'4.00" Weight: 115lbs. 0.0oz. 52.081764yb; 19.00 BMI Method:Stated General Appearance: No Apparent Distress, WD/WN, Anxious, Thin HEENT: PERRL/EOMI, TMs Normal, Moist Mucous Membranes, Pharyngeal Erythema; No Photophobia, No Tonsillar Exudate, No Tonsillar Enlargement; Other (NASAL CONGESTION, NO SINUS TENDERNESS) Neck: Full Range of Motion, Normal Inspection, Non Tender, Supple; No Lymphadenopathy (L), No Lymphadenopathy (R) Respiratory: Normal Breath Sounds, No Accessory Muscle Use, No Respiratory Distress Cardiovascular: Regular Rate, Rhythm, No Edema, No JVD, No Murmur, Normal Peripheral Pulses Gastrointestinal: Normal Bowel Sounds, No Organomegaly, No Pulsatile Mass, Non Tender, Soft Back: No CVA Tenderness Extremity: Normal Capillary Refill, Normal Inspection, Normal Range of Motion, Non Tender, No Calf Tenderness, No Pedal Edema Neurologic/Psychiatric: Alert, Oriented x3, No Motor/Sensory Deficits, Normal Mood/Affect (MILDLY ANXIOUS), registered physical therapist II-XII Norm as Tested Skin: Normal Color, Warm/Dry; No Rash Progress/Results/Core Measures Suspected Sepsis Recent Fever Within 48 Hours: Yes Infection Criteria Present: Documented Infection New/Unexplained Altered Menta: Yes Sepsis Screen: No Definite Risk SIRS Temperature: Pulse: 88 Respiratory Rate: 18 Laboratory Tests 10/02/19 22:38: White Blood Count 9.1 Blood Pressure 138 /98 Mean: 111 Laboratory Tests 10/02/19 22:38: Creatinine 0.83, INR Comment 1.0, Platelet Count 241, Total Bilirubin 0.3 Results/Orders Lab Results Laboratory Tests Test 10/02/19 22:38 10/02/19 23:11 Range/Units White Blood Count 9.1 4.3-11.0 10^3/uL Red Blood Count 3.83 L 4.35-5.85 10^6/uL Hemoglobin 12.8 11.5-16.0 G/DL Hematocrit 38 35-52 % Mean Corpuscular Volume 100 H 80-99 FL Mean Corpuscular Hemoglobin 33 25-34 PG Mean Corpuscular Hemoglobin Concent 33 32-36 G/DL Red Cell Distribution Width 12.8 10.0-14.5 % Platelet Count 241 130-400 10^3/uL Mean Platelet Volume 10.5 H 7.4-10.4 FL Neutrophils (%) (Auto) 66 42-75 % Lymphocytes (%) (Auto) 24 12-44 % Monocytes (%) (Auto) 9 0-12 % Eosinophils (%) (Auto) 0 0-10 % Basophils (%) (Auto) 0 0-10 % Neutrophils # (Auto) 6.0 1.8-7.8 X 10^3 Lymphocytes # (Auto) 2.2 1.0-4.0 X 10^3 Monocytes # (Auto) 0.9 0.0-1.0 X 10^3 Eosinophils # (Auto) 0.0 0.0-0.3 10^3/uL Basophils # (Auto) 0.0 0.0-0.1 10^3/uL Prothrombin Time 13.1 12.2-14.7 SEC INR Comment 1.0 0.8-1.4 Activated Partial Thromboplast Time 31 24-35 SEC Sodium Level 143 135-145 MMOL/L Potassium Level 3.7 3.6-5.0 MMOL/L Chloride Level 110 H 98-107 MMOL/L Carbon Dioxide Level 22 21-32 MMOL/L Anion Gap 11 5-14 MMOL/L Blood Urea Nitrogen 9 7-18 MG/DL Creatinine 0.83 0.60-1.30 MG/DL Estimat Glomerular Filtration Rate > 60 BUN/Creatinine Ratio 11 Glucose Level 84 70-105 MG/DL Calcium Level 9.7 8.5-10.1 MG/DL Corrected Calcium 9.3 8.5-10.1 MG/DL Magnesium Level 2.0 1.6-2.4 MG/DL Total Bilirubin 0.3 0.1-1.0 MG/DL Aspartate Amino Transf (AST/SGOT) 33 5-34 U/L Alanine Aminotransferase (ALT/SGPT) 52 0-55 U/L Alkaline Phosphatase 91 40-136 U/L Total Protein 7.3 6.4-8.2 GM/DL Albumin 4.5 3.2-4.5 GM/DL TSH [place] Testing 2.62 0.35-4.94 UIU/ML Serum Test, Qualitative NEGATIVE NEGATIVE Monoscreen NEGATIVE NEGATIVE Urine Color YELLOW Urine Clarity CLEAR Urine pH 6.5 5-9 Urine Specific [place] <=1.005 1.016-1.022 Urine Protein NEGATIVE NEGATIVE Urine Glucose (UA) NEGATIVE NEGATIVE Urine Ketones NEGATIVE NEGATIVE Urine Nitrite NEGATIVE NEGATIVE Urine Bilirubin NEGATIVE NEGATIVE Urine Urobilinogen 0.2 < = 1.0 MG/DL Urine Leukocyte Esterase NEGATIVE NEGATIVE Urine RBC (Auto) NEGATIVE NEGATIVE Urine RBC NONE /HPF Urine WBC NONE /HPF Urine Squamous Epithelial Cells 0-2 /HPF Urine Crystals NONE /LPF Urine Bacteria NEGATIVE /HPF Urine Casts NONE /LPF Urine Mucus NEGATIVE /LPF Urine Culture Indicated NO Urine Opiates Screen NEGATIVE NEGATIVE Urine Oxycodone Screen NEGATIVE NEGATIVE Urine Methadone Screen NEGATIVE NEGATIVE Urine Propoxyphene Screen NEGATIVE NEGATIVE Urine Barbiturates Screen NEGATIVE NEGATIVE Ur Tricyclic Antidepressants Screen NEGATIVE NEGATIVE Urine Phencyclidine Screen NEGATIVE NEGATIVE Urine Amphetamines Screen NEGATIVE NEGATIVE Urine Methamphetamines Screen NEGATIVE NEGATIVE Urine Benzodiazepines Screen NEGATIVE NEGATIVE Urine Cocaine Screen NEGATIVE NEGATIVE Urine Cannabinoids Screen NEGATIVE NEGATIVE My Orders Orders - THIERNO BAILEY DO Ed Iv/Invasive Line Start (10/02/19 22:49) Monitor-Rhythm Ecg Trace Only (10/02/19 22:49) Cbc With Automated Diff (10/02/19 22:49) Comprehensive Metabolic Panel (10/02/19 22:49) Drug Screen Stat (Urine) (10/02/19 22:49) Hcg,Qualitative Serum (10/02/19 22:49) Magnesium (10/02/19 22:49) Monotest (10/02/19 22:49) Protime With Inr (10/02/19 22:49) Partial Thromboplastin Time (10/02/19 22:49) Thyroid Analyzer (10/02/19 22:49) Ua Culture If Indicated (10/02/19 22:49) Blood Culture (10/02/19 22:49) Chest 1 View, Ap/Pa Only (10/02/19 22:49) Ed Iv/Invasive Line Start (10/02/19 22:49) Lactated Ringers (Lr 1000 Ml Iv Solution (10/02/19 22:49) Ondansetron Injection (Zofran Injectio (10/02/19 23:00) Ceftriaxone For Iv Use (Rocephin For I (10/02/19 23:00) Ekg Tracing (10/02/19 22:54) Acetaminophen Tablet (Tylenol Tablet) (10/02/19 23:15) Scopolamine Patch (Transderm-Scop Patch) (10/02/19 23:45) Medications Given in ED Current Medications Medications Dose Ordered Sig/Concha Route Start Time Stop Time Status Last Admin Dose Admin Acetaminophen 1,000 mg ONCE ONCE PO 10/02/19 23:15 10/02/19 23:16 DC 10/02/19 23:28 1,000 MG Ceftriaxone Sodium 1000 mg/ Sterile Water 10 ml @ 200 mls/hr ONCE ONCE IV 10/02/19 23:00 10/02/19 23:02 DC 10/02/19 23:27 200 MLS/HR Lactated Ringer's 1,000 ml @ 0 mls/hr Q0M ONCE IV 10/02/19 22:49 10/02/19 22:54 DC 10/02/19 23:28 999 MLS/HR Ondansetron HCl 4 mg ONCE ONCE IVP 10/02/19 23:00 10/02/19 23:01 DC 10/02/19 23:28 4 MG Scopolamine 1.5 mg ONCE ONCE TD 10/02/19 23:45 10/02/19 23:58 DC 10/03/19 00:10 1.5 MG Vital Signs/I&O 10/02/19 10/03/19 22:36 00:17 Temp 36.8 36.8 Pulse 88 76 Resp 18 16 B/P (MAP) 138/98 (111) 118/81 (111) Pulse Ox 99 99 O2 Delivery Room Air 10/03/19 00:00 Intake Total 10 ml Balance 10 ml Capillary Refill : Less Than 3 Seconds Blood Pressure Mean: 111 Progress Note : Progress Note GIVEN IV FLUIDS AND SCOPOLAMINE PATCH--STATES SHE FEELS BETTER AT DISMISSAL ALSO GIVEN IV ROCEPHIN Diagnostic Imaging Comments CXR--NO ACUTE PROCESS, PENDING RADIOLOGIST REVIEW Reviewed: Reviewed by Me Departure Impression Primary Impression: Strep pharyngitis Additional Impressions: COVID P.U.I. Dizziness Anxiety Disposition: 01 HOME, SELF-CARE Condition: Stable Departure-Patient Inst. Referrals: [facility] (PCP/Family) Primary Care Physician Patient Instructions: Coronavirus Disease 2019 (COVID-19) (DC), Dizziness, Nonvertigo, (DC), Strep Throat (DC) Add. Discharge Instructions: SCOPOLAMINE PATCH REMAINS FOR 3 DAYS, REMOVE AFTER DAY 3 INCREASE YOUR FLUID INTAKE--WATER, BROTH, JELLO, GATORADE--DRINK ENOUGH SO YOU ARE URINATING EVERY 2-3 HOURS WHILE AWAKE SLOW POSITION CHANGES TYLENOL 1 GRAM / MOTRIN 800 MG 4 TIMES A DAY FOR PAIN OR FEVER TAKE AUGMENTIN PRESCRIBED FOLLOW UP WITH [facility] IN 3-4 DAYS IF NO BETTER, RETURN TO ER IF WORSE QUARANTINE YOURSELF AND ALL HOUSEHOLD MEMBERS AND ANY CONTACTS FOR THE NEXT 2 WEEKS, OR UNTIL CLEARED BY HEALTH DEPARTMENT All discharge instructions reviewed with patient and/or family. Voiced understan ding. THIERNO BAILEY DO Oct 02, 2019 23:00
[2019-10-02 23:01] LABS: BASOPHILS % (AUTO) 0 % (0-10); EOSINOPHILS % (AUTO) 0 % (0-10); HEMATOCRIT 38 % (35-52); HEMOGLOBIN 12.8 G/DL (11.5-16.0); LYMPHOCYTES # (AUTO) 2.2 X 10^3 (1.0-4.0); LYMPHOCYTES % (AUTO) 24 % (12-44); MEAN CORPUSCULAR HEMOGLOBIN 33 PG (25-34); MEAN CORPUSCULAR HGB CONC 33 G/DL (32-36); MEAN CORPUSCULAR VOLUME 100 FL (80-99); MEAN PLATELET VOLUME 10.5 FL (7.4-10.4); MONOCYTES # (AUTO) 0.9 X 10^3 (0.0-1.0); MONOCYTES % (AUTO) 9 % (0-12); NEUTROPHILS % (AUTO) 66 % (42-75); PLATELET COUNT 241 10^3/uL (130-400); RED CELL DISTRIBUTION WIDTH 12.8 % (10.0-14.5); WHITE BLOOD COUNT 9.1 10^3/uL (4.3-11.0)
[2019-10-02 23:05] LABS: ALBUMIN 4.5 GM/DL (3.2-4.5)
[2019-10-02 23:06] LABS: CHLORIDE 110 MMOL/L (98-107); POTASSIUM 3.7 MMOL/L (3.6-5.0); PROTHROMBIN TIME PATIENT 13.1 SEC (12.2-14.7); SODIUM 143 MMOL/L (135-145)
[2019-10-02 23:07] LABS: CALCIUM 9.7 MG/DL (8.5-10.1)
[2019-10-02 23:08] LABS: GLUCOSE 84 MG/DL (70-105); TOTAL PROTEIN 7.3 GM/DL (6.4-8.2)
[2019-10-02 23:09] LABS: CARBON DIOXIDE 22 MMOL/L (21-32)
[2019-10-02 23:10] LABS: BILIRUBIN,TOTAL 0.3 MG/DL (0.1-1.0)
[2019-10-02 23:12] LABS: ALKALINE PHOSPHATASE 91 U/L (40-136); CREATININE SERUM 0.83 MG/DL (0.60-1.30); GFR ESTIMATED > 60
[2019-10-02 23:13] LABS: BUN/CREATININE RATIO 11
[2019-10-02 23:15] LABS: ALANINE AMINOTRANSFERASE 52 U/L (0-55)
[2019-10-02] MEDS ORDERED: ACETAMINOPHEN 500 MG TAB (TYLENOL) PO ONE (23:15)
[2019-10-02 23:22] LABS: BILIRUBIN,URINE NEGATIVE (NEGATIVE); CLARITY,URINE CLEAR; COLOR,URINE YELLOW; GLUCOSE, URINE (UA) NEGATIVE (NEGATIVE); KETONES,URINE NEGATIVE (NEGATIVE); LEUKOCYTE ESTERASE ,URINE NEGATIVE (NEGATIVE); NITRITE,URINE NEGATIVE (NEGATIVE); PH,URINE 6.5 (5-9); PROTEIN,URINE NEGATIVE (NEGATIVE)
[2019-10-02 23:30] LABS: BACTERIA,URINE NEGATIVE /HPF; SQUAMOUS EPITHELIAL CELL,UR 0-2 /HPF
--- OUTSIDE RECORDS SUMMARY | 2019-10-02 23:31 | XMS REPORT ---
Author Author Antonia BURGESS Organization [facility] Address [address] [place] [address] Care Team Providers Care Cancer Registry Coordinator Name Role Phone ADITYA MARY Unavailable PROBLEMS Type Condition ICD9-CM Code [id number] Code Onset Dates Condition S tatus SNOMED Code Problem Panic disorder without agoraphobia 300.01 Active 30949854 ALLERGIES No Information ENCOUNTERS Encounter Location Date Diagnosis [facility] [address] [facility] [id number] [address] [place] [phone] August, Injury of right foot, initia l encounter S99.921A [facility] [address] [facility] [id number] [address] [place] [address] August, Injury of right foot, initia l encounter S99.921A [facility] [address] [facility] [id number] [address] [place] [phone] Jul, Viral upper respiratory trac t infection J06.9 [facility] [address] [facility] [id number] [address] [place] [phone] Jun, [facility] [address] [facility] [id number] [address] [place] [address] Apr, [facility] [address] [facility] [id number] [address] [place] [address] Feb, [facility] [address] [facility] [id number] [address] [place] [phone] Feb, [facility] [address] [place] [id number] [address] [place] [phone] Jan, [facility] [address] [facility] [id number] [address] [place] [phone] Jan, [facility] [address] [id number] [address] [place] [phone] Dec, [facility] [address] [id number] [address] [place] [phone] Oct, [facility] [address] [id number] [address] [place] [address] Sep, [facility] [address] [id number] [address] [place] [address] Sep, [facility] [address] [id number] [address] [place] [phone] Jul, [facility] [address] [id number] [address] [place] [phone] Jul, [facility] [address] [id number] [address] [place] [address] Jun, [facility] [address] [id number] [address] [place] [address] Jun, [facility] [address] [id number] [address] [place] [phone] May, [facility] [address] [id number] [address] [place] [phone] May, [facility] [address] [id number] [address] [place] [address] Apr, [facility] [address] [id number] [address] [place] [address] Apr, [facility] [address] [id number] [address] [place] [address] Apr, [facility] [address] [id number] [address] [place] [phone] Mar, IMMUNIZATIONS No Known Immunizations SOCIAL HISTORY Never Assessed REASON FOR VISIT PLAN OF CARE VITAL SIGNS MEDICATIONS Unknown Medications RESULTS No Results PROCEDURES No Known procedures INSTRUCTIONS MEDICATIONS ADMINISTERED No Known Medications MEDICAL (GENERAL) HISTORY Type Description Date Surgical History tubal ligation Hospitalization History Child
--- OUTSIDE RECORDS SUMMARY | 2019-10-02 23:31 | XMS REPORT ---
Author Author Antonia BURGESS Organization [facility] Address [address] [place] [address] Care Team Providers Care Surgical Endoscopist Name Role Phone MARY BURGESS Unavailable PROBLEMS Type Condition ICD9-CM Code [id number] Code Onset Dates Condition S tatus SNOMED Code Problem Generalized anxiety disorder F41.1 A ctive 06715409 Problem Panic disorder [episodic paroxysmal anxiety] F41.0 Active 084958334 Problem Panic disorder without agoraphobia 300.01 Active 80811496 Problem Moderate episode of recurrent major depressive disorder F33.1 Active 014260018 Problem Depressed F32.9 Active 04878135 ALLERGIES No Information ENCOUNTERS Encounter Location Date Diagnosis [place] [address] [facility] [id number] [address] [place] [phone] Jun, Moderate episode of recurren t major depressive disorder F33.1 ; Generalized anxiety disorder F41.1 and Panic disorder [episodic paroxysmal anxiety] F41.0 [place] [address] [facility] [id number] [address] [place] [phone] Jun, Generalized anxiety disorder F41.1 ; Panic disorder [episodic paroxysmal anxiety] F41.0 and Depressed F32.9 [place] [address] [facility] [id number] [address] [place] [phone] 12 May, 2019 Moderate episode of recurren t major depressive disorder F33.1 [place] [address] [facility] [id number] [address] [place] [phone] Apr, Moderate episode of recurren t major depressive disorder F33.1 [place] [address] [facility] [id number] [address] [place] [phone] Apr, Generalized anxiety disorder F41.1 and Depressed F32.9 [place] [address] [facility] [id number] [address] [place] [phone] Apr, Moderate episode of recurren t major depressive disorder F33.1 and Panic disorder [episodic paroxysmal anxiety] F41.0 [place] [address] [facility] [id number] [address] [place] [phone] Apr, Moderate episode of recurren t major depressive disorder F33.1 [place] [address] [facility] [id number] [address] [place] [address] Mar, [facility] [address] [facility] [id number] [address] [place] [address] Mar, Rib pain R07.81 [place] [address] [facility] [id number] [address] [place] [address] Mar, Moderate episode of recurren t major depressive disorder F33.1 [facility] [place] [address] [facility] [id number] [address] [place] [phone] Dec, Acute non-recurrent maxillar y sinusitis J01.00 [place] [address] [facility] [id number] [address] [place] [address] August, Injury of right foot, initia l encounter S99.921A [facility] [place] [address] [place] [id number] [address] [place] [phone] August, Injury of right foot, initia l encounter S99.921A [facility] [place] [address] [place] [id number] [address] [place] [phone] Jul, Viral upper respiratory trac t infection J06.9 [place] [address] [facility] [id number] [address] [place] [phone] Jun, [place] [address] [facility] [id number] [address] [place] [phone] Apr, [place] [address] [facility] [id number] [address] [place] [phone] 14 Feb, 2012 [place] [address] [place] [id number] [address] [place] [phone] Feb, [facility] [address] [id number] [address] [place] [address], [place] [address] Jan, [facility] [address] [id number] [address] [place] [address], [place] [address] Jan, [facility] [address] [id number] [address] [place] [address], [place] [address] Dec, [facility] [address] [id number] [address] [place] [address], [place] [address] Oct, [facility] [address] [id number] [address] [place] [address], [place] [address] Sep, [facility] [address] [id number] [address] [place] [address], [place] [address] Sep, [facility] [address] [id number] [address] [place] [address], [place] [address] Jul, [facility] [address] [id number] [address] [place] [address], [place] [address] Jul, [facility] [address] [id number] [address] [place] [address], [place] [address] Jun, [facility] [address] [id number] [address] [place] [address], [place] [address] Jun, [facility] [address] [id number] [address] [place] [address], [place] [address] May, [facility] [address] [id number] [address] [place] [address], [place] [address] May, [facility] [address] [id number] [address] [place] [address], [place] [address] Apr, [facility] [address] [id number] [address] [place] [address], [place] [address] Apr, [facility] [address] [id number] [address] [place] [address], [place] [address] Apr, [facility] [address] [id number] [address] [place] [address] Mar, IMMUNIZATIONS No Known Immunizations SOCIAL HISTORY Never Assessed REASON FOR VISIT PLAN OF CARE VITAL SIGNS MEDICATIONS No Known Medications RESULTS No Results PROCEDURES No Known procedures INSTRUCTIONS MEDICATIONS ADMINISTERED No Known Medications MEDICAL (GENERAL) HISTORY Type Description Date Surgical History tubal ligation Surgical History Surgical History cholecystectomy Hospitalization History Child
--- OUTSIDE RECORDS SUMMARY | 2019-10-02 23:31 | XMS REPORT ---
Author Author [employer] [facility] [employer] [facility] [employer] [facility] Address [address] [address] Care Team Providers Care Medical Malpractice Paralegal Name Role Phone CHINYERE MILLER Unavailable DAMON RIBEIRO Unavailable CHINYERE MILLER Unavailable CHINYERE MILLER Unavailable CHINYERE MILLER MD Unavailable Unavailable CHINYERE MILLER MD Unavailable Unavailable ASPEN BRANCH DO Unavailable Unavailable KECIA CHEEMA MD Unavailable Unavailable DELANO HERRERA Unavailable Unavailable FAVIOLA BUNCH Unavailable Unavailable FAVIOLA BUNCH Unavailable Unavailable PCP, NONE Unavailable Unavailable [facility], Doctor Unavailable Unavailable MARY BURGESS Unavailable MARY BURGESS Unavailable MARY BURGESS Unavailable CHINYERE MILLER MD Unavailable Unavailable NICHOL SHANNON Unavailable Unavailable MARY BURGESS Unavailable THIERNO BAILEY DO Unavailable Unavailable Unavailable Unavailable Unavailable Unavailable Unavailable Unavailable Allergies Normalized Allergy Reported Date of Reaction(s) Care Provider Facility Allergy Type classification allergen Allergy Onset DA (3 Unclassified No Known Drug 10-03-2017 - no information CHINYERE MILLER , Not Available sources.) Allergies (13761) Medications Medication Ingredient Drug Dose Dates Status Sig Sig Care Class(es) (Normalized) (Original) Provid er no Acetaminoph no 10-04-19 Complete take 1 Acetaminophe Delisa information en/Hydrocod information 18 - d tablet by n/Hy drocodon D (1 source.) one Bitart 11-09-19 mouth every e Bitart Landa (Hydrocodon 18 four hours (Hydrocodone (no e/Acetamino as needed, /Acetaminoph phone) phen then take 1 en 5/325MG 5/325MG tablet by Tablet) 1 Tablet) 1 mouth as Tab Tab, 1 Tab Tab, 1 needed Tab Oral Tab Oral Every 4HRS as needed for 10/03/17 Discontinued docusate docusate no 100 mg 10-04-19 Complete take 1 Docusat e Delisa sodium 100 information 18 d capsule by Sodium D mg oral mouth once (Colace) 100 Landa capsule (2 daily Mg Capsule (no sources.) 100 Mg ORAL phone) Daily 30 Cap 10/03/17 100 mg 10-03-2017 Completed take 1 Docusate Delisa D capsul Sodium Landa e by (Colace) (no mouth 100 Mg phone) once Capsule daily 100 Mg ORAL Daily 30 Cap 10/03/17 no Oxycodone no 08-25-19 Complete take 5-325 Oxycodone D andre information Hcl/Acetami information 14 - d tablets by Hcl /Acetamin J (2 nophen 08-30-19 mouth every ophen Anny sources.) (Percocet 14 four hours (Percocet (no 5-325 Mg as needed 5-325 Mg phone) Tablet) 1 for pain, Tablet) 1 Each then take 1 Each Tablet, Tablet, 1 tablet by 1 Each Oral Each Oral mouth as Every 4HRS needed for as needed pain for Pain 08/24/13 Discontinued no Iem039/Fa/O no 11-09-19 Complete no Hkr659/Fa/Om (no information mega3/Dha/F information 18 d information eg a3/Dha/Fis phone) (1 source.) jerel Oil h Oil ( ( Gummies) 1 Gummies) 1 Each Each Tab.chew, 2 Tab.chew, 2 Each Oral Each Oral Daily Discontinued no no 09-03-19 Complete no Vit (no information Vit information 17 d information W-Ca,Fe ,Fa( phone) (1 source.) W-Ca,Fe,Fa( Daily <1 Mg) Discontinued ( Vitamins) 1 Each Tablet, 1 Tab Oral Problems Active Problems Problem Normalized Date Last Normalized Normalized Provider Fa cility Classification Problem(s) Recorded Problem Problem Sta tus Duration Other upper Acute upper Episodic Active Doctor Communit y respiratory respiratory [facility] infections (6 infection, of [place] sources.) unspecified [place] (64129) Translations: [ - Viral upper respiratory tract infection J06.9, - Acute non-recurrent maxillary sinusitis J01.00] Skin and Cyst - Episodic Active CHINYERE ANNY Via [facility] i subcutaneous pilonidal [id number] [facility] tissue Translations: [place] infections (10 [ PILONIDAL (04688) sources.) CYST WITHOUT ABSCESS, PILONIDAL CYST W/O ABSC] Other Encounter for Episodic Active DELISA LANDA , Not Available aftercare (1 change or DO (94903) source.) removal of surgical wound dressing Headache, Headache Episodic Active KECIA Not Available including Translations: MD ANETTE (37773) migraine (1 [ MIGRAINE source.) UNSPECIFIED W/O INTRACT MGRN W/] Other Liver and Episodic Active CHINYERE ANNY , Not Meg ilable complications biliary tract (52227) of disorders in (11 sources.) , third trimester Other skin Localized Episodic Active DELISA LANDA , Not Av ailable disorders (2 swelling, mass DO (73923) sources.) and lump, trunk Other Maternal care Episodic Active CHINYERE MILLER , Not Available complications for other MD (34853) of abnormalities (8 sources.) of gravid uterus, third trimester Substance-rela Nicotine Chronic Active CHINYERE PEREZN , Not Available ron disorders dependence, (76803) (8 sources.) cigarettes, uncomplicated Biliary tract Obstruction of Chronic Active CHINYERE MILLER , Not Available disease (3 bile duct (52345) sources.) Other female Other Episodic Active CHINYERE ANNY , Not A vailable genital specified (62680) disorders (8 noninflammator sources.) y disorders of uterus Cardiac Palpitations Episodic Active CHINYERE MILLER , Not Available dysrhythmias (92648) (1 source.) Anxiety Panic disorder Chronic Active Doctor Communi ty disorders (13 without [facility] sources.) agoraphobia of [place] Translations: [place] (20095) [ Panic disorder without agoraphobia, Generalized anxiety disorder, Generalized anxiety disorder, Panic disorder, Panic disorder [episodic paroxysmal anxiety], - Generalized anxiety disorder F41.1, - Panic disorder [episodic paroxysmal anxiety] F41.0] Other lower Pleurodynia Episodic Active MARY Communit y respiratory Translations: [facility] disease (1 [ - Rib pain of [place] source.) R07.81] [place] (06501) Mood disorders Recurrent Chronic Active MARY [place] ty (10 sources.) major [address] [facility] depressive of [place] episodes, [place] (66557) moderate Translations: [ Moderate episode of recurrent major depressive disorder, Depressed, Depressed, - Moderate episode of recurrent major depressive disorder F33.1, - Depressed F32.9] Spondylosis; Sacrococcygeal Episodic Active CHINYERE MILLER , Not Available intervertebral disorders, not (55465) disc elsewhere disorders; classified other back Translations: problems (21 [ BACKACHE sources.) NOS, LOW BACK PAIN] Substance-rela Tobacco use Chronic Active JUAN DANIEL GOMEZ Not Available ron disorders disorder , (40273) (1 source.) Other injuries Unspecified Episodic Active TORIN Cloud ot Available and conditions injury of MD (33187) due to face, initial external encounter causes (3 sources.) Other injuries Unspecified Episodic Active MARY Callahanu nity and conditions injury of [address] due to right foot, of [facility] external initial [place] () causes (8 encounter sources.) Translations: [ - Injury of right foot, initial encounter S99.921A] Past or Other Problems Problem Normalized Date Last Normalized Normalized [facility] Classification Problem(s) Recorded Problem Problem Sta tus Duration Residual 10 weeks no information no information CHINYERE MILLER , Not Available codes; gestation of (13999) unclassified (3 sources.) Residual 14 weeks no information Completed ASPEN BRANCH Not Available codes; gestation of , DO (86578) unclassified (3 sources.) Translations: [ PROC/TRTMT NOT CRD OUT D/T PT LV BEF SEE] Residual 15 weeks no information no information CHINYERE MILLER , Not Available codes; gestation of (74144) unclassified (9 sources.) Residual 18 weeks no information no information KECIA Not Available codes; gestation of MD ANETTE (29510) unclassified (2 sources.) Unclassified 20 weeks no information no information CHINYERE Cloud Not Available (18 sources.) gestation of (07293) Translations: [ 32 WEEKS GESTATION OF , 26 WEEKS GESTATION OF , 18 WEEKS GESTATION OF , 21 WEEKS GESTATION OF , 13 WEEKS GESTATION OF , 15 WEEKS GESTATION OF ] Residual 29 weeks no information no information CHINYERE MILLER , Not Available codes; gestation of (55373) unclassified (2 sources.) Residual 32 weeks no information no information CHINYERE MILLER , Not Available codes; gestation of (32068) unclassified (4 sources.) Residual 34 weeks no information no information CHINYERE MILLER , Not Available codes; gestation of (61014) unclassified (2 sources.) Residual 35 weeks no information no information CHINYERE MILLER , Not Available codes; gestation of (59485) unclassified (5 sources.) Translations: [ 34 WEEKS GESTATION OF ] Residual 8 weeks no information no information CHINYERE MILLER , Not Available codes; gestation of (03411) unclassified (6 sources.) Abdominal pain Abdominal Episodic Completed [facility] Vidal CHRISTENSEN Via (6 sources.) pain, [facility] [place] unspecified Hospital - site [place] Translations: (14507) [ ABDOMINAL PAIN, RIGHT UPPER QUADRANT, ABDOMINAL PAIN, OTHER SPECIFIED SITE, PELVIC AND PERINEAL PAIN] Other Abnormality in Episodic Completed CHINYERE MILLER No t Available complications heart (46462) of ; rate or puerperium rhythm, affecting delivered, management of with or mother (1 without source.) mention of antepartum condition Fetopelvic Bone and joint Episodic Completed CHINYERE MILLER N ot Available disproportion; disorders of MD (98428) obstruction (1 back, pelvis, source.) and lower limbs of mother, antepartum condition or complication NEGATED Carrier or Episodic Completed CHINYERE MILLER , Not Av ailable no suspected MD (90807) information (2 carrier of sources.) group B streptococcus Translations: [ DIPHTHERIA-TET ANUS-PERTUSSIS , COMBINED [, SCREEN-BACTERI AL DIS NEC] Other Decreased Episodic Completed CHINYERE MILLER , Not Meg ilable complications (97633) of movements, (1 source.) affecting management of mother, antepartum condition or complication Conditions Dizziness and Episodic Completed ASPEN BRANCH No t Available associated giddiness , DO (68192) with dizziness or vertigo (3 sources.) Unclassified Encounter for Episodic Completed CHINYERE MILLER , Not Available (4 sources.) (63651) screening of mother Translations: [ ENCOUNTER FOR ANATOMIC SURVEY] Other Encounter for Episodic Completed JOSIAH CHRITSENSEN Via and MD [place] delivery test, result Hospital - including positive [place] normal (19 Translations: (01105) sources.) [ EXAMINATION OR TEST, POSITIVE , DELIVER-SINGLE LIVEBORN] Headache; Headache Episodic Completed ASPEN BRANCH Not Avai lable including , DO (70324) migraine (7 sources.) NEGATED Infections of Episodic Completed CHINYERE MILLER , Not Available no genitourinary (71953) information (1 tract in source.) , antepartum condition or complication Other Injury, Episodic Completed CHINYERE MILLER , Not Avai lable complications poisoning and MD (26802) of certain other (6 sources.) consequences of external causes complicating , first trimester Residual Less than 8 no information no information CHINYERE Cloud , Not Available codes; weeks (92986) unclassified gestation of (5 sources.) Other Liver and Episodic Completed CHINYERE MILLER , Not Meg ilable complications biliary tract (13688) of disorders in (3 sources.) , unspecified trimester Nonmalignant Mastodynia Episodic Completed ASPEN BRANCH Not Available breast Translations: , DO (95461) conditions (1 [ INFLAM source.) DISEASE OF BREAST] Noninfectious Other and Episodic Completed CHINYERE MILLER , Not Available gastroenteriti unspecified (94962) s (1 source.) noninfectious gastroenteriti s and colitis Ovarian cyst Other and Episodic Completed CHINYERE MILLER , Not Available (1 source.) unspecified (91621) ovarian cyst distress Other and Episodic Completed CHINYERE MILLER No t Available and abnormal unspecified (15044) forces of uterine labor (1 inertia, source.) antepartum condition or complication Other Other current Episodic Completed CHINYERE MILLER , Not Available complications conditions (80075) of classifiable (1 source.) elsewhere of mother, antepartum condition or complication Other Other current Episodic Ari MILLER , Not Available complications conditions (80787) of ; classifiable puerperium elsewhere of affecting mother, management of delivered, mother (1 with or source.) without mention of antepartum condition Other liver Other Episodic Completed THIERNO BAILEY , DO Not Av ailable diseases (1 nonspecific (30848) source.) abnormal serum enzyme levels NEGATED Other Episodic Completed CHINYERE MILLER , Not Avai lable no specified MD (11652) information (5 complications sources.) of , antepartum condition or complication Other female Other Episodic Completed CHINYERE MILLER , Not A vailable genital specified MD (68802) disorders (6 conditions sources.) associated with female genital organs and menstrual cycle Other Other Episodic Completed CHINYERE MILLER , Not Avai lable complications specified MD (29093) of diseases and (3 sources.) conditions complicating , childbirth and the puerperium Other Other Episodic Completed CHINYERE MILLER , Not Avai lable complications specified MD (61202) of (6 sources.) related conditions, first trimester Other Other Episodic Completed CHINYERE MILLER , Not Avai lable complications specified MD (27737) of (18 sources.) related conditions, second trimester Abdominal pain Pelvic and no information no information CHINYERE MILLER , Not Available (15 sources.) perineal pain (58193) Early or labor Episodic Completed CHINYERE MILLER , Not Available threatened without (76874) labor (2 delivery, sources.) third trimester Residual Procedure and Episodic Completed ASPEN BRANCH Not Available codes; treatment not , DO (57323) unclassified carried out (2 sources.) due to patient leaving prior to being seen by health care provider Other Pruritus, Episodic Completed FIORELLA CONRADULT , Not Avai lable inflammatory unspecified (28447) condition of skin (1 source.) Other Smoking Episodic Completed CHINYERE MILLER , Not Avai lable complications (tobacco) (58897) of complicating (2 sources.) , third trimester Other Spotting Episodic Completed KECIA Not Available complications complicating MD ANETTE (96862) of , (3 sources.) second trimester Unclassified Threatened no information no information DELANO MILES Not Available (2 sources.) (88561) Hemorrhage Threatened Episodic Completed DELANO HERRERA Not A vailable during , (09673) ; antepartum abruptio condition or placenta; complication placenta Translations: previa (8 [ HEM EARLY sources.) PREG-ANTEPART, THREATENED ] Other Twin no information no information CHINYERE MILLER , Not Available and , (53369) delivery unspecified including number of normal (22 placenta and sources.) unspecified number of amniotic sacs, unspecified trimester Translations: [ TWIN PREG, UNSP NUM PLCNTA AMNIO SACS,, TWIN , DICHORIONIC/DI AMNIOTIC, , TWIN PREG, UNABLE TO DTRM NUM PLCNTA A, TWIN PREG, UNSP NUM PLCNTA AMNIO SACS,, TWIN , DICHORIONIC/DI AMNIOTIC, , TWIN , DICHORIONIC/DI AMNIOTIC, , TWIN PREG, UNSP NUM PLCNTA AMNIO SACS,, TWIN , DICHORIONIC/DI AMNIOTIC, ] External cause Unspecified no information no information CHINYERE MILLER , Not Available codes: Fall (9 fall, initial MD (50016) sources.) encounter Other Unspecified Episodic Completed no name no informa tion complications infection of of urinary tract (1 source.) in , second trimester Other female Unspecified Episodic Completed CHINYERE MILLER , No t Available genital symptom (89765) disorders (1 associated source.) with female genital organs NEGATED Urinary tract Episodic Completed CHINYERE MILLER , Not Available no infection, (03901) information (1 site not source.) specified Other Uterine size Episodic Completed CHINYERE MILLER , Not Available complications date (65765) of discrepancy, (1 source.) antepartum condition or complication Residual Weeks of no information no information CHINYERE MILLER , Not Available codes; gestation of MD (71191) unclassified not (6 sources.) specified Procedures Procedure Normalized Procedure Procedure Result Performer Facility Date 10-22-2017 48 hour ambulatory no information CHINYERE MILLER V [facility] electrocardiographic [place] (92994) monitoring 11-04-2017 Computerized axial no information DELISA LANDA V [facility] tomography of pelvis [place] (96006) with contrast 08-25-2018 Diagnostic radiologic no information AMARA DEGROOT [facility] 08-25-2018 [place] (32383) - 08-25-2018 10-22-2017 Electrocardiographic no information CHINYERE MILLER Via [facility] procedure [place] (36344) Episiotomy no information no name Not Available ( 33225) Medical induction of no information no name Not Avail able (82555) labor 11-08-2017 Removal of pilonidal no information DELISA LANDA Via [facility] (08908) 10-03-2017 Removal of pilonidal no information DELISA LANDA Via [facility] cyst [place] (82069) 10-02-2017 Ultrasonography of no information DELISA LANDA V ia [facility] soft tissue [place] (32946) Immunizations The data below is from unstructured sourcesNo immunization records. No Known Immunizations No Known Immunizations No Known Immunizations No Known Immunizations No Known Immunizations No Known Immunizations No Known Immunizations No Known Immunizations No Known Immunizations No Known Immunizations Results Test Name Value Interpretation Reference Range Date Time Fa cility (Normalized) (Normalized) (Medline Reference) venous blood hemoglobin measurement (mass/volume) on 2017-11-08 Hemoglobin (HGB) 13.8 g/dL (no code) 12.1 - 17.2 g/dL Via [facility] (29024) blood neutrophils automated count (number/volume) on 2017-11-08 Neutrophils 2.4 10*3/uL (no code) 1.7 - 7 10*3/uL Via [facility] (33870) blood monocytes/100 leukocytes on 2017-11-08 Monocytes/100 10 % (no code) 2 - 8 % Via [facility] (44443) blood monocytes automated count (number/volume) on 2017-11-08 Monocytes 0.6 10*3/uL (no code) 0.3 - 0.9 Via [facility] 10*3/uL [facility] (72704) blood lymphocytes automated count (number/volume) on 2017-11-08 Lymphocytes 2.6 10*3/uL (no code) 0.9 - 2.9 Via [facility] 10*3/uL [facility] (90224) blood leukocytes automated count (number/volume) on 2017-11-08 WBC (Leukocytes) 5.6 10*3/uL (no code) 3.5 - 10.5 Via [facility] 10*3/uL [facility] (71710) blood hematocrit (volume fraction) on 2017-11-08 Hematocrit (HCT) 41 % (no code) 36.1 - 50.3 % Via [facility] (63508) blood erythrocytes automated count (number/volume) on 2017-11-08 Erythrocytes 4.27 10*6/uL (L) 4.2 - 6.1 Via [facility] (RBC) 10*6/uL [facility] (97082) automated erythrocyte mean corpuscular volume on 2017-11-08 MCV 96 fL (no code) 80 - 100 fL Via [facility] (02950) automated erythrocyte mean corpuscular hemoglobin concentration measurement (mass/volume) on 2017-11-08 MCHC 34 g/dL (no code) 32 - 36 g/dL Via [facility] (03293) automated erythrocyte mean corpuscular hemoglobin (mass per erythrocyte) on 2017-11-08 MCH 32 pg (no code) 27 - 31 pg Via [facility] (51844) automated erythrocyte distribution width ratio on 2017-11-08 RDW-CA 13.0 % (no code) 11.6 - 14.6 % Via [facility] (28845) automated eosinophil count on 2017-11-08 Eosinophils 0.1 10*3/uL (no code) 0.05 - 0.5 Via [facility] 10*3/uL [facility] (48825) automated blood platelet mean volume measurement on 2017-11-08 Platelet mean 11.0 fL (H) 7.2 - 11.7 fL Via [facility] (PMV) [facility] (69031) automated blood platelet count (count/volume) on 2017-11-08 Platelets 211 10*3/uL (no code) 150 - 450 Via [facility] 10*3/uL [facility] (93260) automated blood neutrophils/100 leukocytes on 2017-11-08 Neutrophils/100 42 % (no code) 40 - 60 % Via [facility] (17972) automated blood lymphocytes/100 leukocytes on 2017-11-08 Lymphocytes/100 46 % (H) 20 - 40 % Via [facility] (37314) automated blood eosinophils/100 leukocytes on 2017-11-08 Eosinophils/100 2 % (no code) 1 - 4 % Via [facility] (23449) automated blood basophils/100 leukocytes on 2017-11-08 Basophils/100 1 % (no code) 0.5 - 1 % Via [facility] (95234) automated blood basophil count (count/volume) on 2017-11-08 Basophils 0.0 10*3/uL (no code) 0 - 0.3 10*3/uL Via [facility] (23669) Vital Signs The data below is from unstructured sources Vital Response Date/Time Temperature (Fahrenheit) 97.0 degree s F (97.6 - 99.5) 07/05/2016 10:10pm Temperature (Calculated Celsius) 36. 14378 degrees C (36.4 - 37.5) 07/05/2016 10:10pm Temperature Source Temporal 07/05/2016 10:10pm Pulse Rate (adult) 95 bpm (60 - 90) 07/06/2016 12:47am Respiratory Rate 18 bpm (12 - 24) 07/06/2016 12:47am O2 Sat by Pulse Oximetry 99 % (88 - 100) 07/06/2016 12:47am Blood Pressure 120/69 mm Hg 07/06/2016 12:47am Blood Pressure Mean 98 mm Hg 07/05/2016 10:10pm Pain Numeric Pain Scale 4 12:47am Height (Feet) 5 feet 10:10pm Height (Inches) 4 inches 07/05/2016 10:10pm Height (Calculated Centimeters) 162. 318891 cm 07/05/2016 10:10pm Weight (Pounds) 143 pounds 07/05/2016 10:10pm Weight (Calculated Kilograms) 64.863 710 kilograms 07/05/2016 10:10pm Capillary Refill Capillary Refill Less Than 3 Seconds 07/05/2016 10:10pm Height 5 ft 4 in Weight 143 lb Body Mass Index 24.5 kg/m^2 Vital Response Date/Time Temperature (Fahrenheit) 98.6 degree s F (97.6 - 99.5) 09/14/2016 6:55pm Temperature (Calculated Celsius) 37. 36576 degrees C (36.4 - 37.5) 09/14/2016 6:55pm Temperature Source Tympanic 09/14/2016 6:55pm Pulse Rate (adult) 101 bpm (60 - 90) 09/14/2016 6:55pm Respiratory Rate 18 bpm (12 - 24) 09/14/2016 6:55pm O2 Sat by Pulse Oximetry 96 % (88 - 100) 09/02/2016 3:25pm Blood Pressure 122/69 mm Hg 09/14/2016 6:55pm Blood Pressure Mean 86 mm Hg 09/14/2016 6:55pm Pain Numeric Pain Scale 5-Moderate Pain 09/14/2016 7:55pm Height (Feet) 5 feet 6:45pm Height (Inches) 4.00 inches 09/14/2016 6:45pm Height (Calculated Centimeters) 162. 371350 cm 09/14/2016 6:45pm Weight (Pounds) 164 pounds 09/14/2016 6:45pm Weight (Ounces) 8.0 oz 0 09/14/2016 6:45pm Weight (Calculated Grams) 31608.95 gm 09/14/2016 6:45pm Weight (Calculated Kilograms) 74.615 946 kilograms 09/14/2016 6:45pm Calculated BMI 28.2 08/21 6:45pm Vital Response Date/Time Temperature (Fahrenheit) 98.5 degree s F (97.6 - 99.5) Temperature (Calculated Celsius) 36. 26288 degrees C (36.4 - 37.5) Temperature Source Temporal Pulse Rate (adult) 55 bpm (60 - 90) Respiratory Rate 16 bpm (12 - 24) O2 Sat by Pulse Oximetry 100 % (88 - 100) Blood Pressure 122/86 mm Hg Pain Pain Intensity 0 Height (Feet) 5 feet Height (Inches) 4.00 inches Height (Calculated Centimeters) 162. 756039 cm Weight (Pounds) 134 pounds Weight (Ounces) 6.0 oz Weight (Calculated Grams) 52671.475 gm Weight (Calculated Kilograms) 60.951 475 kilograms Height 5 ft 4 in Weight 134 lb Body Mass Index 23.1 kg/m^2 Vital Response Date/Time Temperature (Fahrenheit) 97.7 degree s F (97.6 - 99.5) Temperature (Calculated Celsius) 36. 80554 degrees C (36.4 - 37.5) Temperature Source Temporal Pulse Rate (adult) 73 bpm (60 - 90) Respiratory Rate 16 bpm (12 - 24) O2 Sat by Pulse Oximetry 99 % (88 - 100) Blood Pressure 136/96 mm Hg Pain Pain Intensity 7 Height (Feet) 5 feet Height (Inches) 4 inches Height (Calculated Centimeters) 162. 083972 cm Weight (Pounds) 140 pounds Weight (Calculated Kilograms) 63.502 932 kilograms Calculated BMI 24.03 Vital Response Date/Time Temperature (Fahrenheit) 97.8 degree s F (97.6 - 99.5) 10/19/2016 7:40pm Temperature (Calculated Celsius) 36. 67408 degrees C (36.4 - 37.5) 10/19/2016 7:40pm Temperature Source Tympanic 10/19/2016 7:40pm Pulse Rate (adult) 88 bpm (60 - 90) 10/19/2016 7:40pm Respiratory Rate 18 bpm (12 - 24) 10/19/2016 7:40pm Blood Pressure 108/68 mm Hg 10/19/2016 7:40pm Blood Pressure Mean 81 mm Hg 10/19/2016 7:40pm Pain Numeric Pain Scale 5-Moderate Pain 10/19/2016 8:45pm Height (Feet) 5 feet 7:45pm Height (Inches) 4.00 inches 10/19/2016 7:45pm Height (Calculated Centimeters) 162. 607925 cm 10/19/2016 7:45pm Weight (Pounds) 174 pounds 10/19/2016 7:45pm Weight (Ounces) 6.0 oz 0 10/19/2016 7:45pm Weight (Calculated Grams) 08305.17 gm 10/19/2016 7:45pm Weight (Calculated Kilograms) 79.095 170 kilograms 10/19/2016 7:45pm Calculated BMI 29.9 09/22 7:45pm Vital Response Date/Time Temperature (Fahrenheit) 97.6 degree s F (97.6 - 99.5) 10/03/2017 3:10pm Temperature (Calculated Celsius) 36. 09500 degrees C (36.4 - 37.5) 10/03/2017 2:40pm Temperature Source Temporal 10/03/2017 3:10pm Pulse Rate (adult) 45 bpm (60 - 90) 10/03/2017 3:10pm Respiratory Rate 16 bpm (12 - 24) 10/03/2017 3:10pm O2 Sat by Pulse Oximetry 100 % (88 - 100) 10/03/2017 3:10pm Blood Pressure 100/63 mm Hg 10/03/2017 3:10pm Blood Pressure Mean 81 mm Hg (65 - 110) 10/03/2017 10:30am Pain Numeric Pain Scale 4 3:13pm Pain Intensity 4 2017 2:40pm Height (Feet) 5 feet 10:30am Height (Inches) 4.00 inches 10/03/2017 10:30am Height (Calculated Centimeters) 162. 750573 cm 10/03/2017 10:30am Weight (Pounds) 115 pounds 10/03/2017 10:30am Weight (Ounces) 0.0 oz 0 10/03/2017 10:30am Weight (Calculated Grams) 85057.12 gm 10/03/2017 10:30am Weight (Calculated Kilograms) 52.163 123 kilograms 10/03/2017 10:30am Calculated BMI 19.7 09/20 10:30am Vital Response Date/Time Temperature (Fahrenheit) 98.4 degree s F (97.6 - 99.5) 11/08/2017 2:50pm Temperature (Calculated Celsius) 36. 79917 degrees C (36.4 - 37.5) 11/08/2017 2:50pm Temperature Source Temporal 11/08/2017 2:50pm Pulse Rate (adult) 99 bpm (60 - 90) 11/08/2017 2:50pm Respiratory Rate 18 bpm (12 - 24) 11/08/2017 2:50pm O2 Sat by Pulse Oximetry 95 % (88 - 100) 11/08/2017 2:50pm Blood Pressure 126/87 mm Hg 11/08/2017 2:50pm Blood Pressure Mean 92 mm Hg (65 - 110) 11/08/2017 9:50am Pain Numeric Pain Scale 4 2:50pm Pain Intensity 4 2017 2:50pm Height (Feet) 5 feet 9:51am Height (Inches) 4.00 inches 11/08/2017 9:51am Height (Calculated Centimeters) 162. 679480 cm 11/08/2017 9:51am Weight (Pounds) 115 pounds 11/08/2017 9:51am Weight (Ounces) 0.0 oz 0 11/08/2017 9:51am Weight (Calculated Grams) 34812.12 gm 11/08/2017 9:51am Weight (Calculated Kilograms) 52.163 123 kilograms 11/08/2017 9:51am Calculated BMI 19.7 10/21 9:51am Interventions No Information Plan of Treatment The data below is from unstructured sources Discharge Date 07/06/16 12:47am Disposition 01 HOME, SELF-CARE Condition at Discharge Stable Instructions/Education Provided Thre atened Miscarriage (DC) Prescriptions See Medication Section Referrals CHINYERE MILLER MD - [facility] Physician Additional Instructions/Education Al l discharge instructions reviewed with patient and/or family. Voiced understanding. Pelvic rest meaning no sexual activity until cleared by her doctor. No heavy lifting until cleared by her doctor. Call your DrJackie in the morning for appointment today. Return for worse pain, fever, vomiting, weakness, vaginal bleeding increasing, increasing abdominal pain or other concerns as needed. Drink plenty of fluids. Discharge Date 09/14/16 8:15pm Instructions/Education Provided OB O UTPATIENT DISCHARGE Prescriptions See Medication Section Discharge Date 10/19/16 8:45pm Instructions/Education Provided OB O UTPATIENT DISCHARGE Prescriptions See Medication Section Discharge Date 10/03/17 3:10pm Instructions/Education Provided Surg ical Wound (DC) Pilonidal Cyst (DC) Prescriptions See Medication Section Discharge Date 11/08/17 2:50pm Instructions/Education Provided ANES THESIA INSTRUCTIONS POSTOP Pilonidal Cyst (DC) Prescriptions See Medication Section Goals No Information Social History The data below is from unstructured sources History Response Recorde d Date/Time Alcohol Use Denies Use 0 12/17/12 7:49am Recreational Drug Use N 12/17/12 7:49am Sexually Transmitted Disease N 12/17/12 7:49am Functional Status The data below is from unstructured sourcesNo functional status results.No functional status information available.No functional status information available.No functional status results.No functional status results.No functional status results.No functional status results.No functional status information available.No functional status information available.No functional status information available.No functional status information availab le.No functional status information available.No functional status information a vailable. Mental Status No Information Encounters Encounter Normalized Encounter Encounter Diagnosis Care Provi chloe Organization Date Type 08-13-2018 (WALK-IN) Walk-In Care [facility] (no [facility] - respiratory infection, phone) CARE (n o phone) 08-13-2018 unspecified - 08-13-2018 11-08-2017 Admission to day no information DELISA LANDA Work no organization name surgery 10-03-2017 Admission to day no information DELISA LANDA Work no organization name - surgery Phone: 10-03-2017 04-10-2019 [facility] Pleurodynia KENNEDY BERNOT (no [facility] CARE phone) CARE (no phone) 01-11-2019 [facility] Acute maxillary KENNEDY BERNOT ( no [facility] CARE sinusitis, unspecified phone) CARE (n o phone) 08-24-2018 [facility] Unspecified injury of AMARA FIGUEROA (no [facility] - CARE right foot, initial phone) CARE ( no phone) 08-24-2018 encounter - 08-24-2018 06-22-2019 [facility] Major depressive LUISITO SORIA (n o phone) [facility] disorder, recurrent, (no phone) moderate 05-08-2019 [facility] Major depressive NICHOL Burns (no [facility] disorder, recurrent, phone) (no phone) moderate 05-05-2019 [facility] Generalized anxiety BAUDILIO THORPE (no [facility] disorder phone) (no phone) 04-30-2019 [facility] Major depressive ASPEN BAILON (no [facility] disorder, recurrent, phone) (no phone) moderate 04-02-2019 [facility] Major depressive NICHOL Burns (no [facility] disorder, recurrent, phone) (no phone) moderate 07-10-2012 [facility] no information MARY ANDKAILEY N (no [facility] - phone) (no phone) 07-10-2012 - 07-10-2012 05-02-2012 [facility] no information MARY ANDKAILEY N (no [facility] - phone) (no phone) 05-02-2012 - 05-02-2012 03-05-2012 [facility] no information MARY ANDERSO N (no [facility] - phone) Doctor (no phone) 03-05-2012 [facility] (no phone) - 03-05-2012 02-20-2012 [facility] no information MARY ANDERSO N (no [facility] - phone) Doctor (no phone) 02-20-2012 [facility] (no phone) - 02-20-2012 01-10-2012 [facility] no information MARY ANDERSO N (no [facility] - phone) (no phone) 01-10-2012 - 01-10-2012 11-09-2011 [facility] no information MARY ANDERSO N (no [facility] - phone) (no phone) 11-09-2011 - 11-09-2011 10-12-2011 [facility] no information MARY ANDERSO N (no [facility] - phone) (no phone) 10-12-2011 - 10-12-2011 09-21-2011 [facility] no information MARY ANDERSO N (no [facility] - phone) (no phone) 09-21-2011 - 09-21-2011 08-15-2011 [facility] no information MARY ANDERSO N (no [facility] - phone) (no phone) 08-15-2011 - 08-15-2011 08-02-2011 [facility] no information MARY ANDERSO N (no [facility] - phone) (no phone) 08-02-2011 - 08-02-2011 07-19-2011 [facility] no information MARY ANDERSO N (no [facility] - phone) (no phone) 07-19-2011 - 07-19-2011 07-04-2011 [facility] no information MARY ANDERSO N (no [facility] - phone) (no phone) 07-04-2011 - 07-04-2011 06-14-2011 [facility] no information MARY ANDERSO N (no [facility] - phone) (no phone) 06-14-2011 - 06-14-2011 05-30-2011 [facility] no information MARY ANDERSO N (no [facility] - phone) (no phone) 05-30-2011 - 05-30-2011 05-11-2011 [facility] no information MARY ANDERSO N (no [facility] - phone) (no phone) 05-11-2011 - 05-11-2011 04-27-2011 [facility] no information MARY ANDERSO N (no [facility] - phone) (no phone) 04-27-2011 - 04-27-2011 03-22-2011 [facility] no information Doctor Migrati on (no [facility] - phone) (no phone) 03-22-2011 - 03-22-2011 10-02-2019 Emergency department no information THIERNO BAILEY DO (no [facility] patient visit phone) [facility] (no phone) 06-02-2016 Emergency department no information no name no organization name - patient visit 06-02-2016 08-29-2013 Emergency department no information no name no organization name - patient visit 08-29-2013 10-25-2016 Evaluation and no information no name no organ ization name - management of 10-25-2016 inpatient 10-24-2016 Evaluation and no information no name no organ ization name - management of 10-25-2016 inpatient 08-24-2013 Evaluation and no information no name no organ ization name - management of 08-27-2013 inpatient 11-09-2017 Patient encounter no information no name no or ganization name NEGATED Patient encounter no information no name no or ganization name 11-08-2017 - 11-08-2017 11-04-2017 Patient encounter no information DELISA pearson no organization name 10-22-2017 Patient encounter no information CHINYERE Ambrose k no organization name [facility] Patient encounter no information no name no or ganization name 10-03-2017 - 10-03-2017 10-02-2017 Patient encounter no information DELISA D LANDA Wor k no organization name 07-31-2017 Patient encounter no information no name no or ganization name 01-09-2017 Patient encounter no information no name no or ganization name 10-25-2016 Patient encounter no information no name no or ganization name - 10-25-2016 10-10-2016 Patient encounter no information no name no or ganization name - 01-08-2017 08-16-2016 Patient encounter no information no name no or ganization name - 08-16-2016 07-30-2016 Patient encounter no information no name no or ganization name NEGATED Patient encounter no information no name no or ganization name 07-20-2016 - 07-20-2016 05-28-2016 Patient encounter no information no name no or ganization name 05-07-2016 Patient encounter no information no name no or ganization name 04-27-2016 Patient encounter no information no name no or ganization name 04-12-2016 Patient encounter no information no name no or ganization name 04-06-2016 Patient encounter no information no name no or ganization name 06-02-2014 Patient encounter no information no name no or ganization name - 06-02-2014 08-20-2013 Patient encounter no information no name no or ganization name - 08-20-2013 07-18-2013 Patient encounter no information no name no or ganization name - 07-18-2013 07-08-2013 Patient encounter no information no name no or ganization name - 07-08-2013 07-06-2013 Patient encounter no information no name no or ganization name - 07-06-2013 05-23-2013 Patient encounter no information no name no or ganization name - 05-23-2013 05-13-2013 Patient encounter no information no name no or ganization name NEGATED Patient encounter no information no name no or ganization name 04-17-2013 - 04-17-2013 04-09-2013 Patient encounter no information no name no or ganization name 03-04-2013 Patient encounter no information no name no or ganization name 01-08-2013 Patient encounter no information no name no or ganization name 01-02-2013 Patient encounter no information no name no or ganization name 12-31-2012 Patient encounter no information no name no or ganization name 12-23-2012 Patient encounter no information no name no or ganization name 12-18-2012 Patient encounter no information no name no or ganization name 10-02-2019 Patient encounter no information NICHOL SHANNON (n o [facility] procedure phone) [facility] (no phone) 06-22-2019 Patient encounter Generalized anxiety BAUDILIOMALIKA ADLER JOHN ([facility] procedure disorder phone) (no phone) 04-30-2019 Patient encounter Major depressive DAVE RUIZ (no [facility] - procedure disorder, recurrent, phone) (no p william) 04-30-2019 moderate 04-10-2019 Patient encounter no information no name no or ganization name procedure 04-02-2019 Patient encounter no information no name no or ganization name procedure 01-11-2019 Patient encounter no information no name no or ganization name procedure 08-25-2018 Patient encounter no information no name no or ganization name procedure 08-24-2018 Patient encounter no information no name no or ganization name procedure 08-13-2018 Patient encounter no information no name no or ganization name procedure 10-24-2016 Patient encounter no information no name no or ganization name - procedure 10-25-2016 08-07-2016 Patient encounter no information no name no or ganization name procedure 07-17-2016 Patient encounter no information no name no or ganization name procedure 07-10-2016 Patient encounter no information no name no or ganization name procedure 07-05-2016 Patient encounter no information no name no or ganization name - procedure 07-05-2016 07-03-2016 Patient encounter no information no name no or ganization name procedure 06-25-2016 Patient encounter no information no name no or ganization name procedure 06-20-2016 Patient encounter no information no name no or ganization name procedure 06-15-2016 Patient encounter no information no name no or ganization name procedure 06-13-2016 Patient encounter no information no name no or ganization name procedure 06-02-2016 Patient encounter no information no name no or ganization name procedure 04-06-2016 Patient encounter no information no name no or ganization name procedure 06-03-2019 Telephone encounter Major depressive NICHOL SHANNON (no [facility] disorder, recurrent, phone) (no phone) moderate 04-13-2019 Telephone encounter no information NICHOL SHANNON (n [facility] phone) (no phone) 05-15-2011 Telephone encounter no information Doctor Migration (no [facility] - phone) (no phone) 05-15-2011 - 05-15-2011 no information Pre-operative no name no organization name examination, unspecified Medical Equipment No Information Payers Normalized Payer Value [facility] no information History general Narrative - Reported Note Type Note Facility History general Narrative - Reported Type Surgical tubal ligation History Surgical History Surgical cholecystectomy History Hospitaliz Child ation History [facility] ([id number]) Advance Directives Directive Response Recor ded Date/Time Advance Directives No 10:10pm Health Care Power of Electro Plater No 07/05/16 10:10pm Organ Donor Yes 07/05/16 10:10pm Resuscitation Status Full Code 07/05/16 10:10pm Directive Response Recor ded Date/Time Advance Directives No 6:45pm Health Care Power of Electro Plater No 09/14/16 6:45pm Organ Donor Yes 09/14/16 6:45pm Resuscitation Status Full Code 09/14/16 6:45pm Directive Response Recor ded Date/Time Advance Directives No 10:08am Health Care Power of Electro Plater No 06/02/14 10:08am Organ Donor Yes 06/02/14 10:08am Resuscitation Status Full Code 06/02/14 10:08am Directive Response Recor ded Date Advance Directives N 7:49am Directive Response Recor ded Date/Time Advance Directives No 8:08am Health Care Power of Electro Plater No 09/15/14 8:08am Organ Donor Yes 09/15/14 8:08am Resuscitation Status Full Code 09/15/14 8:08am Directive Response Recor ded Date/Time Advance Directives No 7:38pm Health Care Power of Electro Plater No 10/19/16 7:38pm Organ Donor Yes 10/19/16 7:38pm Resuscitation Status Full Code 10/19/16 7:38pm Directive Response Recor ded Date/Time Advance Directives No 10:30am Health Care Power of Electro Plater No 10/03/17 10:30am Organ Donor Yes 10/03/17 10:30am Resuscitation Status Full Code 10/03/17 10:30am Directive Response Recor ded Date/Time Advance Directives No 9:49am Health Care Power of Electro Plater No 11/08/17 9:49am Organ Donor Yes 11/08/17 9:49am Resuscitation Status Full Code 11/08/17 9:49am Discharge Instructions No hospital discharge instructions.No hospital discharge instruction information available.No hospital discharge instructions.No hospital discharge instructions.No hospital discharge instruction information available.No hospital discharge instruction information available.No hospital discharge instruction information available. Additional Source Comments This clinical document has been generated using [employer] software that has been certified by the Office of the National Coordinator for Health Information Technology (ONC 15.99.04.3023.Diam.31.00.0.477993) and the National Committee for Joint Cutter (NCQA, as an eMeasure certified technology). FOR RECORDS PERTAINING TO PATIENTS WHO ARE OR HAVE BEEN ENROLLED IN A CHEMICAL D EPENDENCY/SUBSTANCE ABUSE PROGRAM, SOME INFORMATION MAY BE OMITTED. This clinica l summary was aggregated from multiple sources. Caution should be exercised in using it in the provision of clinical care. This summary normalizes information from multiple sources, and as a consequence, information in this document may ma terially change the coding, format and clinical context of patient data. In carito tion, data may be omitted in some cases. CLINICAL DECISIONS SHOULD BE BASED ON T HE PRIMARY CLINICAL RECORDS. [employer] provides no warranty or guara ntee of the accuracy or completeness of information in this document.The followi ng information is based on time limited clinical information UNRECOGNIZED CONTENT PROVIDED BELOW FOR UNRECOGNIZED SECTION REASON FOR VISIT EMR-[facility] [place] UNRECOGNIZED CONTENT PROVIDED BELOW FOR UNRECOGNIZED SECTION MEDICAL (GENERAL) HISTORY Type Description Date Surgical History tubal ligation Hospitalization History Child
--- OUTSIDE RECORDS SUMMARY | 2019-10-02 23:31 | XMS REPORT ---
Author Author Antonia BURGESS Organization [facility] Address [address] [place] [address] Care Team Providers Care Last Repairer Helper Name Role Phone ADITYA MARY Unavailable PROBLEMS Type Condition ICD9-CM Code [id number] Code Onset Dates Condition S tatus SNOMED Code Problem Panic disorder without agoraphobia 300.01 Active [id number] ALLERGIES No Information ENCOUNTERS Encounter Location Date Diagnosis [facility] [address] [facility] [id number] [address] [place] [phone] August, Injury of right foot, initia l encounter S99.921A [facility] [address] [facility] [id number] [address] [place] [phone] August, Injury of right foot, initia l encounter S99.921A [facility] [address] [facility] [id number] [address] [place] [phone] Jul, Viral upper respiratory trac t infection J06.9 [facility] [address] [facility] [id number] [address] [place] [phone] Jun, [facility] [address] [facility] [id number] [address] [place] [phone] Apr, [facility] [address] [facility] [id number] [address] [place] [phone] Feb, [facility] [address] [facility] [id number] [address] [place] [phone] Feb, [facility] [address] [place] [id number] [address] [place] [phone] Jan, [facility] [address] [facility] [id number] [address] [place] [phone] Jan, [facility] [address] [id number] [address] [place] [phone] Dec, [facility] [address] [id number] [address] [place] [phone] Oct, [facility] [address] [id number] [address] [place] [phone] Sep, [facility] [address] [id number] [address] [place] [phone] Sep, [facility] [address] [id number] [address] [place] [phone] Jul, [facility] [address] [id number] [address] [place] [phone] Jul, [facility] [address] [id number] [address] [place] [phone] Jun, [facility] [address] [id number] [address] [place] [phone] Jun, [facility] [address] [id number] [address] [place] [phone] May, [facility] [address] [id number] [address] [place] [phone] May, [facility] [address] [id number] [address] [place] [phone] Apr, [facility] [address] [id number] [address] [place] [phone] Apr, [facility] [address] [id number] [address] [place] [phone] Apr, [facility] [address] [id number] [address] [place] [phone] Mar, IMMUNIZATIONS No Known Immunizations SOCIAL HISTORY Never Assessed REASON FOR VISIT PLAN OF CARE VITAL SIGNS MEDICATIONS Unknown Medications RESULTS No Results PROCEDURES No Known procedures INSTRUCTIONS MEDICATIONS ADMINISTERED No Known Medications MEDICAL (GENERAL) HISTORY Type Description Date Surgical History tubal ligation Hospitalization History Child
--- OUTSIDE RECORDS SUMMARY | 2019-10-02 23:31 | XMS REPORT ---
Author Author Antonia BURGESS Organization [facility] Address [address] [place] [address] Care Team Providers Care Compensation Manager Name Role Phone ADITYA AMRY Unavailable PROBLEMS Type Condition ICD9-CM Code MEE12-PU Code Onset Dates Condition S tatus SNOMED Code Problem Panic disorder without agoraphobia 300.01 Active [id number] ALLERGIES No Information ENCOUNTERS Encounter Location Date Diagnosis [facility] [address] [facility] [id number] [address] [place] [phone] August, Injury of right foot, initia l encounter S99.921A [facility] [address] [facility] [id number] [address] [place] [phone] August, Injury of right foot, initia l encounter S99.921A [facility] [address] [facility] [id number] [address] [place] [phone] Jul, Viral upper respiratory trac t infection J06.9 [facility] [address] [facility] [id number] [address] [place] [phone] Jun, [facility] [address] [facility] [id number] [address] [place] [phone] Apr, [facility] [address] [facility] [id number] [address] [place] [phone] Feb, [facility] [address] [facility] [id number] [address] [place] [phone] Feb, [facility] [address] [place] [id number] [address] [place] [phone] Jan, [facility] [address] [facility] [id number] [address] [place] [phone] Jan, [facility] [address] [id number] [address] [place] [phone] Dec, [facility] [address] [id number] [address] [place] [phone] Oct, [facility] [address] [id number] [address] [place] [phone] Sep, [facility] [address] [id number] [address] [place] [phone] Sep, [facility] [address] [id number] [address] [place] [phone] Jul, [facility] [address] [id number] [address] [place] [phone] Jul, [facility] [address] [id number] [address] [place] [phone] Jun, [facility] [address] [id number] [address] [place] [phone] Jun, [facility] [address] [id number] [address] [place] [phone] May, [facility] [address] [id number] [address] [place] [phone] May, [facility] [address] [id number] [address] [place] [phone] Apr, [facility] [address] [id number] [address] [place] [phone] Apr, [facility] [address] [id number] [address] [place] [phone] Apr, [facility] [address] [id number] [address] [place] [phone] Mar, IMMUNIZATIONS No Known Immunizations SOCIAL HISTORY Never Assessed REASON FOR VISIT PLAN OF CARE VITAL SIGNS MEDICATIONS Unknown Medications RESULTS No Results PROCEDURES No Known procedures INSTRUCTIONS MEDICATIONS ADMINISTERED No Known Medications MEDICAL (GENERAL) HISTORY Type Description Date Surgical History tubal ligation Hospitalization History Child
--- OUTSIDE RECORDS SUMMARY | 2019-10-02 23:31 | XMS REPORT ---
Author Author Antonia Peterson Doctor Organization [facility] Address Unknown Phone Unavailable Care Team Providers Care A And P Technician Name Role Phone Migration, Doctor Unavailable Unavailable PROBLEMS Type Condition ICD9-CM Code UXM16-TI Code Onset Dates Condition S tatus SNOMED Code Problem Panic disorder without agoraphobia 300.01 Active [id number] ALLERGIES No Information ENCOUNTERS Encounter Location Date Diagnosis [facility] [address] [id number] [address] [place] [phone] Jul, Viral upper respiratory trac t infection J06.9 [facility] [place] [address] [facility] [id number] [address] [place] [phone] Jun, [facility] [place] [address] [facility] [id number] [address] [place] [phone] Apr, [facility] [place] [address] [facility] [id number] [address] [place] [phone] Feb, [facility] [place] [address] [id number] [address] [place] [phone] Feb, [facility] [place] [address] [facility] [id number] [address] [place] [phone] Jan, [facility] [place] [address] [id number] [address] [place] [phone] Jan, [facility] [place] [address] [facility] [id number] [address] [place] [phone] Dec, [facility] [place] [address] [facility] [id number] [address] [place] [phone] Oct, [facility] [place] [address] [facility] [id number] [address] [place] [phone] Sep, [facility] [place] [address] [facility] [id number] [address] [place] [phone] Sep, [facility] [place] [address] [id number] [address] [place] [phone] Jul, [facility] [place] [address] [id number] [address] [place] [phone] Jul, [facility] [place] [address] [id number] [address] [place] [phone] Jun, [facility] [place] [address] [id number] [address] [place] [phone] Jun, [facility] [place] [address] [id number] [address] [place] [phone] May, [facility] [place] [address] [id number] [address] [place] [phone] May, [facility] [place] [address] [id number] [address] [place] [phone] Apr, [facility] [place] [address] [id number] [address] [place] [phone] Apr, [facility] [place] [address] [id number] [address] [place] [phone] Apr, [facility] [place] [address] [id number] [address] [place] [phone] Mar, IMMUNIZATIONS No Known Immunizations SOCIAL HISTORY Never Assessed REASON FOR VISIT [facility] PLAN OF CARE VITAL SIGNS MEDICATIONS No Known Medications RESULTS No Results PROCEDURES No Known procedures INSTRUCTIONS MEDICATIONS ADMINISTERED No Known Medications MEDICAL (GENERAL) HISTORY Type Description Date Surgical History tubal ligation Hospitalization History Child
--- OUTSIDE RECORDS SUMMARY | 2019-10-02 23:32 | XMS REPORT | Continuity of Care Document ---
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 07/31/2017 CHINYERE MILLER MD Ot 646. 83 PREG COMPL NEC-ANTEPART 07/31/2017 CHINYERE MILLER MD Ot 625. 9 FEM GENITAL SYMPTOMS NOS 07/31/2017 CHINYERE MILLER MD Ot 640. 93 HEM EARLY PREG-ANTEPART 07/31/2017 CHINYERE MILLER MD Ot 646. 83 PREG COMPL NEC-ANTEPART 07/31/2017 CHINYERE MILLER MD Ot 649. 63 UTERINE SIZE DATE DISCREPANCY, ANTEPARTU 07/31/2017 CHINYERE MILLER MD Ot V28. 81 ENCOUNTER FOR ANATOMIC SURVEY 07/31/2017 PATRICIA JAIN, JUAN DANIEL Underwood Ot 685.1 PILONIDAL CYST W/O ABSC 07/31/2017 PATRICIA JAIN, JUAN DANIEL Underwood Ot V72.84 EXAM PRE-OPERATIVE NOS 07/31/2017 PATRICIA JAIN, JUAN DANIEL Underwood Ot V74.8 SCREEN-BACTERIAL DIS NEC 07/31/2017 CHINYERE MILLER MD, Ot R10. 2 PELVIC AND PERINEAL PAIN 07/31/2017 CHINYERE MILLER MD, Ot Z32. 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 01 LESS THAN 8 WEEKS GESTATION OF 07/31/2017 CHINYERE MILLER MD Ot N85. 8 OTHER SPECIFIED NONINFLAMMATORY DISORDER 07/31/2017 CHINYERE MILLER MD Ot O30.009 TWIN , UNSP NUM PLCNTA AMNIO 07/31/2017 CHINYERE MILLER MD Ot O34.593 MATERNAL CARE FOR [facility] ABNLT OF [place]RAVID [place] 07/31/2017 CHINYERE MILLER MD Ot W19.XXXA UNSPECIFIED FALL, INITIAL ENCOUNTER 07/31/2017 CHINYERE MILLER MD, Ot Z3A. 10 10 WEEKS GESTATION OF 07/31/2017 CHINYERE MILLER MD Ot N94. 89 OTH COND ASSOC W FEMALE GENITAL ORGANS A 07/31/2017 CHINYERE MILLER MD Ot O26.891 OTH RELATED CONDITIONS, FIRST 07/31/2017 CHINYERE MILLER MD, Ot O30.001 TWIN PREG, UNSP NUM PLCNTA AMNIO SACS, 07/31/2017 CHINYERE MILLER MD Ot O9A.211 INJ/POISN/OTH CONSEQ OF EXTERNAL CAUSES 07/31/2017 CHINYERE MILLER MD, Ot W19.XXXA UNSPECIFIED FALL, INITIAL ENCOUNTER 07/31/2017 CHINYERE MILLER MD, Ot Z3A. 08 8 WEEKS GESTATION OF 07/31/2017 CHINYERE MILLER MD, Ot O30.001 TWIN PREG, UNSP NUM PLCNTA AMNIO SACS, 07/31/2017 CHINYERE MILLER MD, Ot Z3A. 13 13 WEEKS GESTATION OF 07/31/2017 CHINYERE MILLER MD, Ot M54. 5 LOW BACK PAIN 07/31/2017 CHINYERE MILLER MD, Ot O26.892 OTH RELATED CONDITIONS, SECOND 07/31/2017 CHINYERE MILLER MD, Ot O30.002 TWIN PREG, UNSP NUM PLCNTA AMNIO SACS, 07/31/2017 CHINYERE MILLER MD, Ot Z3A. 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 21 21 WEEKS GESTATION OF 07/31/2017 CHINYERE MILLER MD, Ot K83. 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 1 OBSTRUCTION OF BILE DUCT 07/31/2017 CHINYERE MILLER MD, Ot O26.619 LIVER AND BILIARY TRACT DISORD IN PREGNA 07/31/2017 CHINYERE MILLER MD, Ot O30.049 TWIN , DICHORIONIC/DIAMNIOTIC, 07/31/2017 CHINYERE MILLER MD, Ot O26.613 LIVER AND BILIARY TRACT DISORD IN PREGNA 07/31/2017 CHINYERE MILLER MD, Ot O30.003 TWIN PREG, UNSP NUM PLCNTA AMNIO SACS, 07/31/2017 CHINYERE MILLER MD, Ot Z3A. 32 32 WEEKS GESTATION OF 08/01/2017 HEATHER JAIN, TORIN Melendez Ot S09.93XA UNSPECIFIED INJURY OF FACE, INITIAL ENCO 08/16/2017 CHINYERE MILLER MD Ot R10. 2 PELVIC AND PERINEAL PAIN 08/16/2017 CHINYERE MILLER MD, Ot Z32. 01 ENCOUNTER FOR TEST, RESULT POS 10/03/2017 DELISA LANDA DO Ot R22. 2 LOCALIZED SWELLING, MASS AND LUMP, TRUNK 10/03/2017 CHINYERE MILLER MD Ot O26.613 LIVER AND BILIARY TRACT DISORD IN PREGNA 10/03/2017 CHINYERE MILLER MD, Ot O30.003 TWIN PREG, UNSP NUM PLCNTA AMNIO SACS, 10/03/2017 CHINYERE MILLER MD, Ot Z3A. 32 32 WEEKS GESTATION OF 10/03/2017 DELISA LANDA DO Ot R22. 2 LOCALIZED SWELLING, MASS AND LUMP, TRUNK 10/04/2017 DELISA LANDA DO Ot F17.210 NICOTINE DEPENDENCE, CIGARETTES, UNCOMPL 10/04/2017 DELISA LANDA DO Ot L05. 91 PILONIDAL CYST WITHOUT ABSCESS 10/24/2017 CHINYERE MILLER MD Ot R00. 2 PALPITATIONS 11/05/2017 DELISA LANDA DO Ot M53. 3 SACROCOCCYGEAL DISORDERS, NOT ELSEWHERE 11/06/2017 DELISA LANDA DO Ot M53. 3 SACROCOCCYGEAL DISORDERS, NOT ELSEWHERE 11/12/2017 DELISA LANDA DO Ot F17.210 NICOTINE DEPENDENCE, CIGARETTES, UNCOMPL 11/12/2017 DELISA LANDA DO Ot L05. 91 PILONIDAL CYST WITHOUT ABSCESS 11/13/2017 DELISA LANDA DO Ot Z48. 01 ENCOUNTER FOR CHANGE OR REMOVAL OF SURGI 01/02/2018 CHINYERE MILLER MD Ot R10. 2 PELVIC AND PERINEAL PAIN 01/02/2018 CHINYERE MILLER MD, Ot Z32. 01 ENCOUNTER FOR TEST, RESULT POS 02/26/2018 HEATHER JAIN, TORIN Melendez Ot S09.93XA UNSPECIFIED INJURY OF FACE, INITIAL ENCO 05/15/2018 CHINYERE MILLER MD, Ot R10. 2 PELVIC AND PERINEAL PAIN 05/15/2018 CHINYERE MILLER MD, Ot Z32. 01 ENCOUNTER FOR TEST, RESULT POS 05/16/2018 CHINYERE MILLER MD, Ot R10. 2 PELVIC AND PERINEAL PAIN 05/16/2018 CHINYERE MILLER MD, Ot Z32. 01 ENCOUNTER FOR TEST, RESULT POS 06/18/2018 HEATHER JAIN, TORIN Melendez Ot S09.93XA UNSPECIFIED INJURY OF FACE, INITIAL ENCO 09/18/2018 CHINYERE MILLER MD, Ot R10. 2 PELVIC AND PERINEAL PAIN 09/18/2018 CHINYERE MILLER MD, Ot Z32. 01 ENCOUNTER FOR TEST, RESULT POS 10/08/2018 CHINYERE MILLER MD, Ot R10. 2 PELVIC AND PERINEAL PAIN 10/08/2018 CHINYERE MILLER MD, Ot Z32. 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 08/24/2013 73.6 EPISIOTOMY 08/25/2013 Results Test Result Range Complete urinalysis with reflex to cultu re - 07/05/16 22:27 Urine color determination YELLOW NRG Urine clarity determination CLEAR NR G Urine pH measurement by test strip 7 5-9 Specific gravity of urine by test strip 1.010 1.016-1.022 Urine protein assay by test strip, semi-quantitative NEGATIVE NEGATIVE Urine glucose detection by automated test strip NE GATIVE NEGATIVE Erythrocytes detection in urine sediment by light micr oscopy NEGATIVE NEGATIVE Urine ketones detection by automated test strip NE GATIVE NEGATIVE Urine nitrite detection by test strip NEGATIVE NEGATIVE Urine total bilirubin detection by test strip NEGA TIVE NEGATIVE Urine urobilinogen measurement by automated test strip (mass/volume) 1 mg/dL NORMAL Urine leukocyte esterase detection by dipstick NEG ATIVE NEGATIVE Automated urine sediment erythrocyte cou nt by microscopy (number/high power field) NONE NRG Automated urine sediment leukocyte count by microscopy (number/high power field) [HPF] NRG Bacteria detection in urine sediment by light microsco py TRACE NRG Squamous epithelial cells detection in u rine sediment by light microscopy 2-5 NRG Crystals detection in urine sediment by light microsco py NONE NRG Casts detection in urine sediment by light microscopy NONE NRG Mucus detection in urine sediment by light microscopy NEGATIVE NRG Complete urinalysis with reflex to culture NO NRG Complete urinalysis with reflex to cultu re - 07/20/16 10:15 Urine color determination YELLOW NRG Urine clarity determination CLEAR NR G Urine pH measurement by test strip 6 5-9 Specific gravity of urine by test strip 1.020 1.016-1.022 Urine protein assay by test strip, semi-quantitative 2+ NEGATIVE Urine glucose detection by automated test strip NE GATIVE NEGATIVE Erythrocytes detection in urine sediment by light micr oscopy 1+ NEGATIVE Urine ketones detection by automated test strip NE GATIVE NEGATIVE Urine nitrite detection by test strip NEGATIVE NEGATIVE Urine total bilirubin detection by test strip NEGA TIVE NEGATIVE Urine urobilinogen measurement by automated test strip (mass/volume) 4 mg/dL NORMAL Urine leukocyte esterase detection by dipstick 1+ NEGATIVE Automated urine sediment erythrocyte cou nt by microscopy (number/high power field) RARE NRG Automated urine sediment leukocyte count by microscopy (number/high power field) [HPF] NRG Bacteria detection in urine sediment by light microsco py MODERATE NRG Squamous epithelial cells detection in u rine sediment by light microscopy 10-25 NRG Crystals detection in urine sediment by light microsco py NONE NRG Casts detection in urine sediment by light microscopy NONE NRG Mucus detection in urine sediment by light microscopy MODERATE NRG Complete urinalysis with reflex to culture YES NRG Bacterial urine culture - 07/20/16 10:15 URINE CULTURE RESULTS <10,000/ML NRG Complete blood count (CBC) with automate d white blood cell (WBC) differential - 07/20/16 10:55 Blood leukocytes automated count (number/volume) 9.3 10*3/uL 4.3-11.0 Blood erythrocytes automated count (number/volume) 2.59 10*6/uL 4.35-5.85 Venous blood hemoglobin measurement (mass/volume) 8.6 g/dL 11.5-16.0 Blood hematocrit (volume fraction) 26 % 35-52 Automated erythrocyte mean corpuscular volume 102 [foz_us] 80-99 Automated erythrocyte mean corpuscular h emoglobin (mass per erythrocyte) 33 pg 25-34 Automated erythrocyte mean corpuscular h emoglobin concentration measurement (mass/volume) 33 g/dL 32-36 Automated erythrocyte distribution width ratio 12. 6 % 10.0- 14.5 Automated blood platelet count (count/volume) 187 10*3/uL [...] 10*3 1.0-4.0 Blood monocytes automated count (number/volume) 0. 8 10*3 0.0-1.0 Automated eosinophil count 0.0 10*3/uL 0 .0-0.3 Automated blood basophil count (count/volume) 0.0 10*3/uL 0.0-0.1 Comprehensive metabolic panel - 07/20/16 10:55 Serum or plasma sodium measurement (moles/volume) 139 mmol/L 135-145 Serum or plasma potassium measurement (moles/volume) 3.0 mmol/L 3.6-5.0 Serum or plasma chloride measurement (moles/volume) 118 mmol/L 98-107 Carbon dioxide 19 mmol/L 21-32 Serum or plasma anion gap determination (moles/volume) 2 mmol/L 5-14 Serum or plasma urea nitrogen measurement (mass/volume ) 8 mg/dL 7-18 Serum or plasma creatinine measurement (mass/volume) 0.82 mg/dL 0.60-1.30 Serum or plasma urea nitrogen/creatinine mass ratio 10 NRG Serum or plasma creatinine measurement w ith calculation of estimated glomerular filtration rate > NRG Serum or plasma calcium measurement (mass/volume) 6.3 mg/dL 8.5-10.1 Serum or plasma total bilirubin measurement (mass/volu me) 0.4 mg/dL 0.1-1.0 Serum or plasma alkaline phosphatase kd surement (enzymatic activity/volume) 164 U/L 40-136 Serum or plasma aspartate aminotransfera se measurement (enzymatic activity/volume) 55 U/L 5-34 Serum or plasma alanine aminotransferase measurement (enzymatic activity/volume) 52 U/L 0-55 Serum or plasma protein measurement (mass/volume) 4.5 g/dL 6.4-8.2 Serum or plasma albumin measurement (mass/volume) 2.4 g/dL 3.2-4.5 Serum or plasma amylase measurement (enz ymatic activity/volume) - 07/20/16 10:55 Serum or plasma amylase measurement (enzymatic activit y/volume) 102 U/L 25-125 Lipase - 07/20/16 10:55 [...] 5-14 Serum or plasma urea nitrogen measurement (mass/volume ) 11 mg/dL 7-18 Serum or plasma creatinine measurement (mass/volume) 0.59 mg/dL 0.60-1.30 Serum or plasma urea nitrogen/creatinine mass ratio 19 NRG Serum or plasma creatinine measurement w ith calculation of estimated glomerular filtration rate > NRG Serum or plasma glucose measurement (mass/volume) 83 mg/dL 70-105 Serum or plasma calcium measurement (mass/volume) 8.7 mg/dL 8.5-10.1 Serum or plasma total bilirubin measurement (mass/volu me) 0.4 mg/dL 0.1-1.0 Serum or plasma alkaline phosphatase kd surement (enzymatic activity/volume) 218 U/L 40-136 Serum or plasma aspartate aminotransfera se measurement (enzymatic activity/volume) 73 U/L 5-34 Serum or plasma alanine aminotransferase measurement (enzymatic activity/volume) 71 U/L 0-55 Serum or plasma protein measurement (mass/volume) 5.9 g/dL 6.4-8.2 Serum or plasma albumin measurement (mass/volume) 3.1 g/dL 3.2-4.5 Serum or plasma amylase measurement (enz ymatic activity/volume) - 07/20/16 11:49 Serum or plasma amylase measurement (enzymatic activit y/volume) 135 U/L 25-125 Lipase - 07/20/16 11:49 Lipase 4 U/L 8-78 Complete blood count (CBC) with automate d white blood cell (WBC) differential - 09/02/16 15:55 Blood leukocytes automated count (number/volume) 11.0 10*3/uL 4.3-11.0 Blood erythrocytes automated count (number/volume) 3.16 10*6/uL 4.35-5.85 Venous blood hemoglobin measurement (mass/volume) 10.5 g/dL 11.5-16.0 Blood hematocrit (volume fraction) 32 % 35-52 Automated erythrocyte mean corpuscular volume 100 [foz_us] 80-99 Automated erythrocyte mean corpuscular h emoglobin (mass per erythrocyte) 33 pg 25-34 Automated erythrocyte mean corpuscular h emoglobin concentration measurement (mass/volume) 33 g/dL 32-36 Automated erythrocyte distribution width ratio 12. 4 % 10.0- 14.5 Automated blood platelet count (count/volume) 298 10*3/uL [...] 10*3 1.0-4.0 Blood monocytes automated count (number/volume) 0. 9 10*3 0.0-1.0 Automated eosinophil count 0.1 10*3/uL 0 .0-0.3 Automated blood basophil count (count/volume) 0.1 10*3/uL 0.0-0.1 Comprehensive metabolic panel - 09/02/16 15:55 Serum or plasma sodium measurement (moles/volume) 137 mmol/L 135-145 Serum or plasma potassium measurement (moles/volume) 3.8 mmol/L 3.6-5.0 Serum or plasma chloride measurement (moles/volume) 107 mmol/L 98-107 Carbon dioxide 20 mmol/L 21-32 Serum or plasma anion gap determination (moles/volume) 10 mmol/L 5-14 Serum or plasma urea nitrogen measurement (mass/volume ) 7 mg/dL 7-18 Serum or plasma creatinine measurement (mass/volume) 0.57 mg/dL 0.60-1.30 Serum or plasma urea nitrogen/creatinine mass ratio 12 NRG Serum or plasma creatinine measurement w ith calculation of estimated glomerular filtration rate > NRG Serum or plasma glucose measurement (mass/volume) 110 mg/dL 70-105 Serum or plasma calcium measurement (mass/volume) 8.5 mg/dL 8.5-10.1 Serum or plasma total bilirubin measurement (mass/volu me) 0.9 mg/dL 0.1-1.0 Serum or plasma alkaline phosphatase kd surement (enzymatic activity/volume) 293 U/L 40-136 Serum or plasma aspartate aminotransfera se measurement (enzymatic activity/volume) 60 U/L 5-34 Serum or plasma alanine aminotransferase measurement (enzymatic activity/volume) 87 U/L 0-55 Serum or plasma protein measurement (mass/volume) 5.9 g/dL 6.4-8.2 Serum or plasma albumin measurement (mass/volume) 2.8 g/dL 3.2-4.5 Total and fractionated bile acids measur ement - 09/02/16 16:05 Serum cholate measurement (moles/volume) > % 0.0-1.9 Deoxycholic acid measurement 8.0 % 0 .0-2.5 Ursodeoxycholic acid measurement 0.3 % 0.0-1.0 Chenodeoxycholic acid measurement 33.3 % 0.0-3.4 Serum bile acid measurement (moles/volume) > % 0.0-7.0 Complete urinalysis with reflex to cultu re - 10/24/16 21:40 Urine color determination YELLOW NRG Urine clarity determination SLIGHTLY CLOUDY NRG Urine pH measurement by test strip 6.5 5-9 Specific gravity of urine by test strip 1.010 1.016-1.022 Urine protein assay by test strip, semi-quantitative 1+ NEGATIVE Urine glucose detection by automated test strip NE GATIVE NEGATIVE Erythrocytes detection in urine sediment by light micr oscopy NEGATIVE NEGATIVE Urine ketones detection by automated test strip 3+ NEGATIVE Urine nitrite detection by test strip NEGATIVE NEGATIVE Urine total bilirubin detection by test strip NEGA TIVE NEGATIVE Urine urobilinogen measurement by automated test strip (mass/volume) 1 mg/dL NORMAL Urine leukocyte esterase detection by dipstick 3+ NEGATIVE Automated urine sediment erythrocyte cou nt by microscopy (number/high power field) NONE NRG Automated urine sediment leukocyte count by microscopy (number/high power field) [HPF] NRG Bacteria detection in urine sediment by light microsco py LARGE NRG Squamous epithelial cells detection in u rine sediment by light microscopy 25-50 NRG Crystals detection in urine sediment by light microsco py NONE NRG Casts detection in urine sediment by light microscopy NONE NRG Mucus detection in urine sediment by light microscopy NEGATIVE NRG Complete urinalysis with reflex to culture YES NRG Bacterial urine culture - 10/24/16 21:40 URINE CULTURE RESULTS 10,000/ML - 100,000/ML NRG Urine beta human chorionic gonadotropin (hCG) measurement - 10/03/17 10:20 Urine beta human chorionic gonadotropin (hCG) measurem ent NEGATIVE NEGATIVE Methicillin resistant Staphylococcus aur eus (MRSA) screening culture - 10/03/17 10:20 Methicillin resistant Staphylococcus aureus (MRSA) scr eening culture NEG NRG Urine beta human chorionic gonadotropin (hCG) measurement - 11/08/17 09:35 Urine beta human chorionic gonadotropin (hCG) measurem ent NEGATIVE NEGATIVE Methicillin resistant Staphylococcus aur eus (MRSA) screening culture - 11/08/17 09:35 Methicillin resistant Staphylococcus aureus (MRSA) scr eening culture NEG NRG Complete blood count (CBC) with automate d white blood cell (WBC) differential - 11/08/17 09:55 Blood leukocytes automated count (number/volume) 5.6 10*3/uL 4.3-11.0 Blood erythrocytes automated count (number/volume) 4.27 10*6/uL 4.35-5.85 Venous blood hemoglobin measurement (mass/volume) 13.8 g/dL 11.5-16.0 Blood hematocrit (volume fraction) 41 % 35-52 Automated erythrocyte mean corpuscular volume 96 [ foz_us] 80-99 Automated erythrocyte mean corpuscular h emoglobin (mass per erythrocyte) 32 pg 25-34 Automated erythrocyte mean corpuscular h emoglobin concentration measurement (mass/volume) 34 g/dL 32-36 Automated erythrocyte distribution width ratio 13. 0 % 10.0- 14.5 Automated blood platelet count (count/volume) 211 10*3/uL 130-400 Automated blood platelet mean volume measurement 11.0 [foz_us] 7.4-10.4 Automated blood neutrophils/100 leukocytes 42 % 42-75 Automated blood lymphocytes/100 leukocytes 46 % 12-44 Blood monocytes/100 leukocytes 10 % 0-12 Automated blood eosinophils/100 leukocytes 2 % 0-10 Automated blood basophils/100 leukocytes 1 % 0-10 Blood neutrophils automated count (number/volume) 2.4 10*3 1.8-7.8 Blood lymphocytes automated count (number/volume) 2.6 10*3 1.0-4.0 Blood monocytes automated count (number/volume) 0. 6 10*3 0.0-1.0 Automated eosinophil count 0.1 10*3/uL 0 .0-0.3 Automated blood basophil count (count/volume) 0.0 10*3/uL 0.0-0.1 Complete blood count (CBC) with automate d white blood cell (WBC) differential - 10/02/19 22:38 Blood leukocytes automated count (number/volume) 9.1 10*3/uL 4.3-11.0 Blood erythrocytes automated count (number/volume) 3.83 10*6/uL 4.35-5.85 Venous blood hemoglobin measurement (mass/volume) 12.8 g/dL 11.5-16.0 Blood hematocrit (volume fraction) 38 % 35-52 Automated erythrocyte mean corpuscular volume 100 [foz_us] 80-99 Automated erythrocyte mean corpuscular h emoglobin (mass per erythrocyte) 33 pg 25-34 Automated erythrocyte mean corpuscular h emoglobin concentration measurement (mass/volume) 33 g/dL 32-36 Automated erythrocyte distribution width ratio 12. 8 % 10.0- 14.5 Automated blood platelet count (count/volume) 241 10*3/uL 130-400 Automated blood platelet mean volume measurement 10.5 [foz_us] 7.4-10.4 Automated blood neutrophils/100 leukocytes 66 % 42-75 Automated blood lymphocytes/100 leukocytes 24 % 12-44 Blood monocytes/100 leukocytes 9 % 0-12 Automated blood eosinophils/100 leukocytes 0 % 0-10 Automated blood basophils/100 leukocytes 0 % 0-10 Blood neutrophils automated count (number/volume) 6.0 10*3 1.8-7.8 Blood lymphocytes automated count (number/volume) 2.2 10*3 1.0-4.0 Blood monocytes automated count (number/volume) 0. 9 10*3 0.0-1.0 Automated eosinophil count 0.0 10*3/uL 0 .0-0.3 Automated blood basophil count (count/volume) 0.0 10*3/uL 0.0-0.1 Comprehensive metabolic panel - 10/02/19 22:38 Serum or plasma sodium measurement (moles/volume) 143 mmol/L 135-145 Serum or plasma potassium measurement (moles/volume) 3.7 mmol/L 3.6-5.0 Serum or plasma chloride measurement (moles/volume) 110 mmol/L 98-107 Carbon dioxide 22 mmol/L 21-32 Serum or plasma anion gap determination (moles/volume) 11 mmol/L 5-14 Serum or plasma urea nitrogen measurement (mass/volume ) 9 mg/dL 7-18 Serum or plasma creatinine measurement (mass/volume) 0.83 mg/dL 0.60-1.30 Serum or plasma urea nitrogen/creatinine mass ratio 11 NRG Serum or plasma creatinine measurement w ith calculation of estimated glomerular filtration rate > NRG Serum or plasma glucose measurement (mass/volume) 84 mg/dL 70-105 Serum or plasma calcium measurement (mass/volume) 9.7 mg/dL 8.5-10.1 Serum or plasma total bilirubin measurement (mass/volu me) 0.3 mg/dL 0.1-1.0 Serum or plasma alkaline phosphatase kd surement (enzymatic activity/volume) 91 U/L 40-136 Serum or plasma aspartate aminotransfera se measurement (enzymatic activity/volume) 33 U/L 5-34 Serum or plasma alanine aminotransferase measurement (enzymatic activity/volume) 52 U/L 0-55 Serum or plasma protein measurement (mass/volume) 7.3 g/dL 6.4-8.2 Serum or plasma albumin measurement (mass/volume) 4.5 g/dL 3.2-4.5 CALCIUM CORRECTED 9.3 mg/dL 8.5-10.1 Serum or plasma choriogonadotropin (preg sajan test) detection - 10/02/19 22:38 Serum or plasma choriogonadotropin ( test) de tection NEGATIVE NEGATIVE PT panel in platelet poor plasma by coag ulation assay - 10/02/19 22:38 Prothrombin time (PT) in platelet poor plasma by coagu lation assay 13.1 s 12.2-14.7 INR in platelet poor plasma or blood by coagulation as say 1.0 0.8-1.4 Activated partial thromboplastin time (a PTT) in platelet poor plasma bycoagulation assay - 10/02/19 22:38 Activated partial thromboplastin time (a PTT) in platelet poor plasma bycoagulation assay 31 s 24-35 Serum heterophile antibody titer - 10/01 22:38 Serum heterophile antibody titer NEGATIVE NEGATIVE Magnesium - 10/02/19 22:38 Magnesium 2.0 mg/dL 1.6-2.4 Encounters ACCT No. Visit Date/Time Discharge Status Pt. Type Provider Facility Loc./Unit Complaint [id number] 07/05/2016 20:59:00 07/05/2016 21:18: 00 DIS Outpatient Vandana Burgos [id number] 05/02/2012 12:46:00 05/02/2012 23:59: 59 [id number] 02/20/2012 12:51:00 02/20/2012 23:59:5 [id number] 11/09/2017 12:09:00 018 23:59:59 CLS Outpatient LANDA DELISA MUÑOZ [facility] 4THo REMOVE PACKING POST LATASHA AMADOU [id number] 11/08/2017 09:25:00 018 14:50:00 DIS Outpatient DELISA LANDA DO [facility] SDC PILONIDAL CYST [id number] 11/04/2017 15:33:00 018 23:59:59 CLS Outpatient LANDA DELISA MUÑOZ [facility] RAD COCCYX PAIN [id number] 10/22/2017 11:12:00 018 23:59:59 CLS Outpatient CHINYERE MILLER MD [facility] CARD PALPITATIONS [id number] 10/17/2017 14:45:00 018 23:59:59 CLS Preadmit CHINYERE MILLER MD [facility] CARD PALPITATIONS [id number] 10/03/2017 10:14:00 018 15:10:00 DIS Outpatient DELISA LANDA DO [facility] SDC PILONIDAL CYST [id number] 10/02/2017 14:37:00 018 23:59:59 CLS Outpatient DELISA LANDA DO [facility] RAD MASS TAILBONE [id number] 07/31/2017 14:49:00 018 23:59:59 CLS Outpatient TORIN ROMERO MD [facility] RAD POSSIBLE NASAL HEMATOMA [id number] 01/09/2017 00:17:00 017 23:59:59 CLS Preadmit CHINYERE MILLER MD [facility] TWINS CHOLESTASIS OF RI EGNANCY [id number] 10/10/2016 16:05:00 017 00:01:00 DIS Outpatient CHINYERE MILLER MD [facility] TWINS CHOLESTASIS OF RI EGNANCY [id number] 10/25/2016 20:07:00 017 22:04:00 DIS Outpatient CHINYERE MILLER MD [facility] CONTRACTIONS [id number] 10/24/2016 21:28:00 017 05:54:00 DIS Inpatient CHINYERE MILLER MD [facility] LDRP CONTRACTIONS,RT FOOT SW ELLING [id number] 10/19/2016 18:47:00 017 20:45:00 DIS Outpatient CHINYERE MILLER MD [facility] BILAT LEG SWELLING/PELV IC PRESSURE [id number] 09/14/2016 19:01:00 017 20:15:00 DIS Outpatient CHINYERE MILLER MD [facility] SEVERE HEADACHE [id number] 09/11/2016 10:44:00 017 23:59:59 CLS Outpatient CHINYERE MILLER MD [facility] RAD TWIN W/CHOLEC YSTITIS [id number] 09/10/2016 13:52:00 017 23:59:59 CLS Outpatient CHINYERE MILLER MD [facility] WSo CHLOESTASIS OF PREGNANC Y [id number] 09/02/2016 15:37:00 017 17:18:00 DIS Outpatient FIORELLA VELAZQUEZ MD [facility] WSo ITCHING [id number] 08/16/2016 11:11:00 017 11:54:00 DIS Outpatient CHINYERE MILLER MD Via [facility] REHAB R LUMBAR PAIN 15 WEEKS WITH TWINS [id number] 07/30/2016 09:08:00 017 23:59:59 CLS Outpatient CHINYERE MILLER MD [facility] RAD TWIN GESTATION [id number] 07/20/2016 09:50:00 017 13:31:00 DIS Outpatient CHINYERE MILLER MD [facility] ABDOMINAL PAIN [id number] 07/05/2016 21:48:00 017 00:47:00 DIS Emergency KECIA CHEEMA MD [facility] ER SPOTTING;18 WEE [place] [id number] 06/21/2016 11:05:00 017 23:59:59 CLS Outpatient CHINYERE MILLER MD [facility] RAD TWIN ,LOW BACK PAIN [id number] 06/02/2016 19:57:00 017 21:11:00 DIS Emergency ASPEN BRANCH DO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
[2019-10-02 23:35] LABS: TSH (THYROID ANALYZER) 2.62 UIU/ML (0.35-4.94)
[2019-10-02 23:36] LABS: AMPHETAMINE SCREEN, URINE NEGATIVE (NEGATIVE); BARBITURATE SCREEN URINE NEGATIVE (NEGATIVE); BENZODIAZEPINES SCREEN URINE NEGATIVE (NEGATIVE); CANNABINOID SCREEN, URINE NEGATIVE (NEGATIVE); COCAINE SCREEN URINE NEGATIVE (NEGATIVE); METHADONE STAT NEGATIVE (NEGATIVE); METHAMPHETAMINE SCREEN URINE S NEGATIVE (NEGATIVE); OPIATE SCREEN URINE NEGATIVE (NEGATIVE); OXYCODONE STAT NEGATIVE (NEGATIVE); PROPOXYPHENE STAT NEGATIVE (NEGATIVE); TRICYCLIC ANTIDEPRESSANTS SCRE NEGATIVE (NEGATIVE)
[2019-10-02] MEDS ORDERED: SCOPOLAMINE 1.5 MG (TRANSDERM-SCOP) PATCH TD ONE (23:45)
[2019-10-03 00:17] VITALS: BP 118/81
--- NOTE | 2019-10-03 06:18 | Diagnostic Imaging Report ---
INDICATION: Shortness of air and cough. Time of exam: 11:18 PM Comparison is made to prior radiograph from 01/26/2010. The heart size is normal. The pulmonary vascularity is unremarkable. The lungs are clear. No infiltrate, effusion or pneumothorax is detected. IMPRESSION: No acute cardiopulmonary process is detected. Dictated by: Dictated on workstation # [id number]
== END 2019-10-03 00:17 | disposition home or self-care (01) ==
LOC: EDUNIT# 22:14 → ER 22:16
DX: J02.0 Streptococcal pharyngitis (principal); R42 Dizziness and giddiness; F41.9 Anxiety disorder, unspecified; F17.210 Nicotine dependence, cigarettes, uncomplicated; Z20.828 Contact with and (suspected) exposure to other viral communicable diseases; Z82.49 Family history of ischemic heart disease and other diseases of the circulatory system
CPT/HCPCS: 36415; 71045; 80053; 80306; 81000; 83735; 84443; 84703; 85025; 85610; 85730; 86308; 87040; 93005; 93041

== ENCOUNTER 2019-10-04 20:47 | Emergency (ER) | payer MEDICAID ==
[~2019-10-04] VITALS: Ht 165 cm; Wt 59.1 kg
[~2019-10-04 20:47] MED LIST changes: +AMOX1TAB12; +DULO60CA59; +HYDR-3781
--- OUTSIDE RECORDS SUMMARY | 2019-10-04 20:54 | XMS REPORT ---
Author Author [facility] Address [address] [address] Care Team Providers Care Assembly Lead Person Name Role Phone CHINYERE MILLER Unavailable DAMON [...] BURGESS Unavailable THIERNO BAILEY DO Unavailable Unavailable [facility] PCP Unavailable Unavailable Unavailable Unavailable Unavailable Unavailable Unavailable Unavailable Unavailable Unavailable Allergies Normalized Allergy Reported Date of Reaction(s) Care Provider Facility Allergy Type classification allergen Allergy Onset DA (3 Unclassified No Known Drug 10-03-2017 - no information CHINYERE MILLER , Not Available sources.) Allergies (26819) Medications Current Medications Medication Ingredient Drug Dose Dates Status Sig Sig Care Class(es) (Normalized) (Original) Provid er amoxicillin Amoxicillin Penicillin- Active no Amoxicil xin/ no 875 mg / / class information Potassium name clavulanate Clavulanate Antibacteri Clav Active 125 mg oral al NOT tablet (1 APPLICABLE source.) docusate docusate no 100 mg 10-04-19 Active no Docusate no sodium 100 information 18 information Sodium name mg oral Active 100 capsule (3 ORAL Daily sources.) October 03, 2017 12:28pm 100 mg 10-03-2017 Completed take 1 Docusate Delisa D capsul Sodium Landa e by (Colace) (no mouth 100 Mg phone) once Capsule daily 100 Mg ORAL Daily 30 Cap 10/03/17 DULoxetine DULoxetine Serotonin Active no Duloxetine no 60 mg and information Hcl Active name delayed Norepinephr NOT release ine APPLICABLE oral Reuptake capsule (1 Inhibitor source.) Completed/Discontinued Medications Medication Ingredient Drug Dose Dates Status [...] Every 4HRS as needed for 10/03/17 Discontinued no Bcp no 07-21-19 Complete no Bcp no information information 17 d information Disconti nued name (1 source.) 1 ORAL Daily July 20, 2016 no Nitrofurant no 04-18-20 Complete no Nitrofuranto no information oin/Nitrofu information 13 - d information in /Nitrofura name (1 source.) ran Mac 07-07-19 n Mac 14 Discontinued 100 ORAL Twice A Day as needed for Abdominal Pain April 17, 2013 10:14pm July 06, 2013 no Oxycodone no 08-25-19 Complete no Oxycodone no information Hcl/Acetami information 14 - d information Hc l/Acetamin name (1 source.) lily 08-30-19 ophen 14 Discontinued 1 ORAL Every 4HRS as needed for Pain August 24, 2013 8:16pm August 29, 2013 no Oxycodone no 08-25-19 Complete take 5-325 [...] needed pain for Pain 08/24/13 Discontinued no Ilf175/Fa/O no 11-09-19 Complete no Xge775/Fa/Om no information mega3/Dha/F information 18 d information eg a3/Dha/Fis name (1 source.) jerel Oil h Oil Discontinued 2 ORAL Daily November 08, 2017 no Mnz794/Fa/O no 11-09-19 Complete no Kvu958/Fa/Om (no information mega3/Dha/F information 18 d information eg a3/Dha/Fis phone) (1 source.) jerel Oil h Oil ( ( Gummies) 1 Gummies) 1 Each Each Tab.chew, 2 Tab.chew, 2 Each Oral Each Oral Daily Discontinued no no 09-03-19 Complete no Vit no information Vit information 17 d information W-Ca,Fe ,Fa( name (1 source.) W-Ca,Fe,Fa( Discontinued <1 Mg) 1 ORAL Daily September 02, 2016 no no 09-03-19 Complete no Vit (no information Vit information 17 d information W-Ca,Fe ,Fa( phone) (1 source.) W-Ca,Fe,Fa( Daily <1 Mg) Discontinued ( Vitamins) 1 Each Tablet, 1 Tab Oral Problems Active Problems Problem Normalized Date Last Normalized Normalized Provider Fa cility Classification Problem(s) Recorded Problem Problem Sta tus Duration Other upper Acute upper Episodic Active Doctor Communit y respiratory respiratory [facility] infections (7 infection, of [place] sources.) unspecified [place] (23979) Translations: [ - Viral upper respiratory tract infection J06.9, - Acute non-recurrent maxillary sinusitis J01.00, Pharyngitis due to Streptococcus species] Skin and Cyst - Episodic Active CHINYERE MILLER [facility] i subcutaneous pilonidal [id number] [facility] tissue Translations: [facility] infections (11 [ PILONIDAL (45475) sources.) CYST WITHOUT ABSCESS, PILONIDAL CYST W/O ABSC, Pilonidal cyst] Conditions Dizziness and Episodic Active ASPEN BRANCH No t Available associated giddiness , DO (24961) with dizziness Translations: or vertigo (4 [ Dizziness] sources.) Other Encounter for Episodic Active DELISA LANDA , Not Available aftercare (1 change or DO (68580) source.) removal of surgical wound dressing Headache, Headache Episodic Active KECIA Not Available including Translations: MD ANETTE (34451) migraine (1 [ MIGRAINE source.) UNSPECIFIED W/O INTRACT MGRN W/] Other Liver and Episodic Active CHINYERE MILLER , Not Meg ilable complications biliary tract (13792) of disorders in (11 sources.) , third trimester Other skin Localized Episodic Active DELISA LANDA , Not Av ailable disorders (2 swelling, mass DO (41223) sources.) and lump, trunk Other Maternal care Episodic Active CHINYERE MILLER , Not Available complications for other MD (56684) of abnormalities (8 sources.) of gravid uterus, third trimester Substance-rela Nicotine Chronic Active CHINYERE MILLER , Not Available ron disorders dependence, (55818) (8 sources.) cigarettes, uncomplicated Biliary tract Obstruction of Chronic Active CHINYERE MILLER , Not Available disease (3 bile duct MD (80688) sources.) Other female Other Episodic Active CHINYERE MILLER , Not A vailable genital specified MD (00832) disorders (8 noninflammator sources.) y disorders of uterus Cardiac Palpitations Episodic Active CHINYERE MILLER , Not Available dysrhythmias (94544) (1 source.) Anxiety Panic disorder Chronic Active Doctor Communi ty disorders (14 without [facility] sources.) agoraphobia of [place] Translations: [place] (66451) [ Panic disorder without agoraphobia, Generalized anxiety disorder, Generalized anxiety disorder, Panic disorder, Panic disorder [episodic paroxysmal anxiety], - Generalized anxiety disorder F41.1, - Panic disorder [episodic paroxysmal anxiety] F41.0, Anxiety] Other lower Pleurodynia Episodic Active MARY Communit y respiratory Translations: [address] disease (1 [ - Rib pain of [place] source.) R07.81] [place] (67942) Mood disorders Recurrent Chronic Active MARY Communi ty (10 sources.) major [address] depressive of [place] episodes, [place] (56277) moderate Translations: [ Moderate episode of recurrent major depressive disorder, Depressed, Depressed, - Moderate episode of recurrent major depressive disorder F33.1, - Depressed F32.9] Spondylosis; Sacrococcygeal Episodic Active CHINYERE MILLER , Not Available intervertebral disorders, not (53349) disc elsewhere disorders; classified other back Translations: problems (21 [ BACKACHE sources.) NOS, LOW BACK PAIN] Substance-rela Tobacco use Chronic Active JUAN DANIEL GOMEZ Not Available ron disorders disorder , (36554) (1 source.) Other injuries Unspecified Episodic Active TORIN ROMERO N ot Available and conditions injury of , (71603) due to face, initial external encounter causes (3 sources.) Other injuries Unspecified Episodic Active MARY Ritika reyes and conditions injury of [address] due to right foot, of [place] [facility] external initial [place] (03274) causes (8 encounter sources.) Translations: [ - Injury of right foot, initial encounter I98.057J] Past or Other Problems Problem Normalized Date Last Normalized Normalized Provider Fa quinn Classification Problem(s) Recorded Problem Problem Sta tus Duration Residual 10 weeks no information no information CHINYERE MILLER , Not Available codes; gestation of (66858) unclassified (3 sources.) Residual 14 weeks no information Completed ASPEN BRANCH Not Available codes; gestation of , DO (89747) unclassified (3 sources.) Translations: [ PROC/TRTMT NOT CRD OUT D/T PT LV BEF SEE] Residual 15 weeks no information no information CHINYERE MILLER Not Available codes; gestation of (53362) unclassified (9 sources.) Residual 18 weeks no information no information KECIA Not Available codes; gestation of MD ANETTE (72260) unclassified (2 sources.) Unclassified 20 weeks no information no information CHINYERE Cloud , Not Available (18 sources.) gestation of (20447) Translations: [ 32 WEEKS GESTATION OF , 26 WEEKS GESTATION OF , 18 WEEKS GESTATION OF , 21 WEEKS GESTATION OF , 13 WEEKS GESTATION OF , 15 WEEKS GESTATION OF ] Residual 29 weeks no information no information CHINYERE MILLER Not Available codes; gestation of (04566) unclassified (2 sources.) Residual 32 weeks no information no information CHINYERE MILLER , Not Available codes; gestation of (04671) unclassified (4 sources.) Residual 34 weeks no information no information CHINYERE MILLER , Not Available codes; gestation of (50248) unclassified (2 sources.) Residual 35 weeks no information no information CHINYERE MILLER , Not Available codes; gestation of (70896) unclassified (5 sources.) Translations: [ 34 WEEKS GESTATION OF ] Residual 8 weeks no information no information CHINYERE MILLER , Not Available codes; gestation of (34621) unclassified (6 sources.) Abdominal pain Abdominal Episodic Completed CHINYERE MILLER [facility] Via (6 sources.) pain, MD [place] unspecified Hospital - site [facility] Translations: (32270) [ ABDOMINAL PAIN, RIGHT UPPER QUADRANT, ABDOMINAL PAIN, OTHER SPECIFIED SITE, PELVIC AND PERINEAL PAIN] Other Abnormality in Episodic Completed CHINYERE MILLER No t Available complications heart (60475) of ; rate or puerperium rhythm, affecting delivered, management of with or mother (1 without source.) mention of antepartum condition Fetopelvic Bone and joint Episodic Completed CHINYERE MILLER , N ot Available disproportion; disorders of (07353) obstruction (1 back, pelvis, source.) and lower limbs of mother, antepartum condition or complication NEGATED Carrier or Episodic Completed CHINYERE MILLER , Not Av ailable no suspected (92728) information (2 carrier of sources.) group B streptococcus Translations: [ DIPHTHERIA-TET ANUS-PERTUSSIS , COMBINED [, SCREEN-BACTERI AL DIS NEC] Other Decreased Episodic Completed CHINYERE MILLER , Not Meg ilable complications (50504) of movements, (1 source.) affecting management of mother, antepartum condition or complication Unclassified Encounter for Episodic Ari MILLER , Not Available (4 sources.) (46195) screening of mother Translations: [ ENCOUNTER FOR ANATOMIC SURVEY] Other Encounter for Episodic JOSIAH Mosqueda Via and MD [place] delivery test, result Hospital - including positive [facility] normal (19 Translations: (07593) sources.) [ EXAMINATION OR TEST, POSITIVE , DELIVER-SINGLE LIVEBORN] Headache; Headache Episodic Completed ASPEN BRANCH Not Avai lable including , DO (99577) migraine (7 sources.) NEGATED Infections of Episodic Completed CHINYERE MILLER , Not Available no genitourinary (94579) information (1 tract in source.) , antepartum condition or complication Other Injury, Episodic Completed CHINYERE MILLER , Not Avai lable complications poisoning and MD (32942) of certain other (6 sources.) consequences of external causes complicating , first trimester Residual Less than 8 no information no information CHINYERE Cloud , Not Available codes; weeks (15690) unclassified gestation of (5 sources.) Other Liver and Episodic Completed CHINYERE MILLER , Not Meg ilable complications biliary tract (21619) of disorders in (3 sources.) , unspecified trimester Nonmalignant Mastodynia Episodic Completed ASPEN BRANCH Not Available breast Translations: , DO (30620) conditions (1 [ INFLAM source.) DISEASE OF BREAST] Noninfectious Other and Episodic Completed CHINYERE MILLER , Not Available gastroenteriti unspecified (04111) s (1 source.) noninfectious gastroenteriti s and colitis Ovarian cyst Other and Episodic Completed CHINYERE MILLER , Not Available (1 source.) unspecified MD (52564) ovarian cyst distress Other and Episodic Completed CHINYERE MILLER No t Available and abnormal unspecified (81043) forces of uterine labor (1 inertia, source.) antepartum condition or complication Other Other current Episodic Completed CHINYERE MILLER , Not Available complications conditions (82000) of classifiable (1 source.) elsewhere of mother, antepartum condition or complication Other Other current Episodic Completed CHINYERE MILLER , Not Available complications conditions (26559) of ; classifiable puerperium elsewhere of affecting mother, management of delivered, mother (1 with or source.) without mention of antepartum condition Other liver Other Episodic Completed THIERNO BAILEY , DO Not Av ailable diseases (1 nonspecific (08148) source.) abnormal serum enzyme levels NEGATED Other Episodic Completed CHINYERE MILLER , Not Avai lable no specified (71866) information (5 complications sources.) of , antepartum condition or complication Other female Other Episodic Completed CHINYERE MILLER , Not A vailable genital specified (78287) disorders (6 conditions sources.) associated with female genital organs and menstrual cycle Other Other Episodic Completed CHINYERE MILLER , Not Avai lable complications specified MD (96055) of diseases and (3 sources.) conditions complicating , childbirth and the puerperium Other Other Episodic Completed CHINYERE MILLER , Not Avai lable complications specified MD (81145) of (6 sources.) related conditions, first trimester Other Other Episodic Completed CHINYERE MILLER , Not Avai lable complications specified MD (66275) of (18 sources.) related conditions, second trimester Abdominal pain Pelvic and no information no information CHINYERE MILLER , Not Available (15 sources.) perineal pain (59959) Early or labor Episodic Completed CHINYERE MILLER , Not Available threatened without (09876) labor (2 delivery, sources.) third trimester Residual Procedure and Episodic Completed ASPEN BRANCH Not Available codes; treatment not , DO (70002) unclassified carried out (2 sources.) due to patient leaving prior to being seen by health care provider Other Pruritus, Episodic Completed FIORELLA VELAZQUEZ , Not Avai lable inflammatory unspecified MD (46530) condition of skin (1 source.) Other Smoking Episodic Completed CHINYERE MILLER , Not Avai lable complications (tobacco) (00907) of complicating (2 sources.) , third trimester Other Spotting Episodic Completed KECIA Not Available complications complicating MD ANETTE (05838) of , (3 sources.) second trimester Unclassified Threatened no information no information DELANO MILES Not Available (2 sources.) (83860) Hemorrhage Threatened Episodic Completed DELANO HERRERA Not A vailable during , (07389) ; antepartum abruptio condition or placenta; complication placenta Translations: previa (8 [ HEM EARLY sources.) PREG-ANTEPART, THREATENED ] Other Twin no information no information CHINYERE MILLER , Not Available and , (70372) delivery unspecified including number of normal (22 [...] Available codes: Fall (9 fall, initial MD (64764) sources.) encounter Other Unspecified Episodic Completed no name no informa tion complications infection of of urinary tract (1 source.) in , second trimester Other female Unspecified Episodic Completed CHINYERE MILLER , No t Available genital symptom (11354) disorders (1 associated source.) with female genital organs NEGATED Urinary tract Episodic Completed CHINYERE MILLER , Not Available no infection, (67948) information (1 site not source.) specified Other Uterine size Episodic Completed CHINYERE MILLER , Not Available complications date (16158) of discrepancy, (1 source.) antepartum condition or complication Residual Weeks of no information no information CHINYERE MILLER , Not Available codes; gestation of MD (57406) unclassified not (6 sources.) specified Procedures Procedure Normalized Procedure Procedure Result Performer Facility Date 10-22-2017 48 hour ambulatory no information CHINYERE MILLER V [facility] electrocardiographic [facility] (57832) monitoring 11-04-2017 Computerized axial no information DELISA LANDA V [facility] tomography of pelvis [facility] (41888) with contrast 08-25-2018 Diagnostic radiologic no information AMARA DEGROOT [facility] 08-25-2018 [place] (36316) - 08-25-2018 10-02-2019 Electrocardiographic no information no name As cension [facility] (69272) 10-22-2017 Electrocardiographic no information CHINYERE MILLER [facility] procedure [facility] (78603) Episiotomy no information no name Not Available ( 38605) Medical induction of no information no name Not Avail able (15185) labor 10-02-2019 Plain chest X-ray no information no name Ascen luan [facility] (81991) 11-08-2017 Removal of pilonidal no information DELISA LANDA [facility] cyst [facility] (11740) 10-03-2017 Removal of pilonidal no information DELISA LANDA [facility] cyst [facility] (27128) 10-02-2017 Ultrasonography of no information DELISA LANDA V ia [facility] soft tissue [facility] (08512) Immunizations The data below is from unstructured sources Immunization Event Date Not Given Reason Dose Number Medical Appointment Scheduler Lot Number Vaccine Information Statement (VIS) Deta il Results Test Name Value Interpretation Reference Range Date Time Fa cility (Normalized) (Normalized) (Medline Reference) laboratory on 2019-10-02 Albumin 4.5 g/dL (NEG) 3.4 - 5.4 g/dL 10-02-2019 PENDING LOCATION [Mass/Vol] 18:38-0400 [facility] (01969) ALP [Catalytic 91 U/L (NEG) 44 - 147 U/L 10-02-2019 PEND ING LOCATION activity/Vol] 18:38-0400 [facility] (52080) ALT [Catalytic 52 U/L (NEG) 4 - 40 U/L 10-02-2019 PENDIN G LOCATION activity/Vol] 18:38-0400 [facility] (21179) Amphetamines Negative (no code) 10-02-2019 PENDING LOCAT ION Screen Ql (U) 19:11-0400 [facility] (43019) Anion gap 11 mmol/L (NEG) 3 - 11 mmol/L 10-02-2019 PENDING LOCATION [Moles/Vol] 18:38-0400 [facility] (37962) aPTT Coag (PPP) 31 s (NEG) 25 - 35 s 10-02-2019 PENDIN G LOCATION [Time] 18:38-0400 [facility] (93544) AST [Catalytic 33 U/L (NEG) 10 - 34 U/L 10-02-2019 PENDI NG LOCATION activity/Vol] 18:38-0400 [facility] (16378) Bacteria NG (no code) 10-02-2019 PENDING LOCATI ON identified Cx 19:15-0400 [facility] (81727) Nom (Bld) Bacteria LM Ql Negative (no code) 10-02-2019 PENDING LOC ATION (Urine sed) 19:11-0400 [facility] (37674) Barbiturates Ql Negative (no code) 10-02-2019 PENDING LO CATION (U) 19:11-0400 [facility] (99729) Basophils (Bld) 0.0 10*3/uL (NEG) 0 - 0.3 10*3/uL 10-02-2019 PENDING LOCATION [#/Vol] 18:38-0400 [facility] (15064) Basophils/100 0 % (NEG) 0.5 - 1 % 10-02-2019 PENDING LOCATION WBC (Bld) 18:38-0400 [facility] (79265) Benzodiazepines Negative (no code) 10-02-2019 PENDING LO CATION Ql (U) 19:11-0400 [facility] (70350) Bilirubin 0.3 mg/dL (NEG) 0.1 - 1.2 mg/dL 10-02-2019 PENDIN G LOCATION [Mass/Vol] 18:38-0400 [facility] (43574) Bilirubin Ql (U) Negative (no code) 10-02-2019 PENDING L OCATION 19:11-0400 [facility] (29369) Calcium 9.7 mg/dL (NEG) 8.5 - 10.2 mg/dL 10-02-2019 PENDI NG LOCATION [Mass/Vol] 18:38-0400 [facility] (37746) Calcium 9.3 mg/dL (NEG) 8.5 - 10.2 mg/dL 10-02-2019 PENDI NG LOCATION [Mass/Vol] 18:38-0400 [facility] (98216) Cannabinoids Negative (no code) 10-02-2019 PENDING LOCAT ION Screen Ql (U) 19:11-0400 [facility] (95464) Casts LM Ql NONE (no code) 10-02-2019 PENDING LOCATI ON (Urine sed) 19:11-0400 [facility] (31225) Chloride 110 mmol/L (H) 95 - 106 mmol/L 10-02-2019 PENDI NG LOCATION [Moles/Vol] 18:38-0400 [facility] (36633) Clarity (U) CLEAR (no code) 10-02-2019 PENDING LOCATI ON 19:11-0400 [facility] (29289) CO2 [Moles/Vol] 22 mmol/L (NEG) 23 - 29 mmol/L 10-02-2019 P ENDING LOCATION 18:38-0400 [facility] (53111) Cocaine Ql (U) Negative (no code) 10-02-2019 PENDING LOC ATION 19:11-0400 [facility] (28047) Color (U) YELLOW (no code) 10-02-2019 PENDING LOCATI ON 19:11-0400 [facility] (22086) Creatinine 0.83 mg/dL (NEG) 10-02-2019 PENDING LOCATI ON [Mass/Vol] 18:38-0400 [facility] (08330) Creatinine and > (no code) 10-02-2019 PENDING LOC ATION Glomerular 18:38-0400 [facility] (14908) filtration rate.predicted panel - Serum, Plasma or Blood Crystals LM Ql NONE (no code) 10-02-2019 PENDING LOC ATION (Urine sed) 19:11-0400 [facility] (77058) Eosinophils 0.0 10*3/uL (NEG) 0.05 - 0.5 10-02-2019 PENDING LOCATION (Bld) [#/Vol] 10*3/uL 18:38-0400 [facility] (12332) Eosinophils/100 0 % (NEG) 1 - 4 % 10-02-2019 PENDIN G LOCATION WBC (Bld) 18:38-0400 [facility] (01189) Epithelial 0-2 (no code) 10-02-2019 PENDING LOCATI ON cells.squamous 19:11-0400 [facility] (45639) LM Ql (Urine sed) Erythrocyte 12.8 % (NEG) 11.6 - 14.6 % 10-02-2019 PENDIN G LOCATION distribution 18:38-0400 [facility] (28354) width (RBC) [Ratio] Glucose 84 mg/dL (NEG) 60 - 125 mg/dL 10-02-2019 PENDING LOCATION [Mass/Vol] 18:38-0400 [facility] (53921) Glucose Auto Negative (no code) 10-02-2019 PENDING LOCAT ION test strip Ql 19:11-0400 [facility] (44902) (U) HCG ( Negative (no code) 10-02-2019 PENDING LOC ATION test) Ql 18:38-0400 [facility] (78138) Hematocrit (Bld) 38 % (NEG) 36.1 - 50.3 % 10-02-2019 P ENDING LOCATION [Volume 18:38-0400 [facility] (34624) fraction] Hemoglobin (Bld) 12.8 g/dL (NEG) 12.1 - 17.2 g/dL 10-02-2019 PENDING LOCATION [Mass/Vol] 18:38-0400 [facility] (23934) Heterophile Ab Negative (no code) 10-02-2019 PENDING LOC ATION (S) [Titer] 18:38-0400 [facility] (48791) INR Coag 1.0 (NEG) 10-02-2019 PENDING LOCATI ON (Platelet poor 18:38-0400 [facility] (84768) plasma or blood) [Relative time] Ketones Auto Negative (no code) 10-02-2019 PENDING LOCAT ION test strip Ql 19:11-0400 [facility] (82463) (U) Leukocyte Negative (no code) 10-02-2019 PENDING LOCATI ON esterase Test 19:11-0400 [facility] (05319) strip Ql (U) Lymphocytes 2.2 10*3/uL (NEG) 0.9 - 2.9 10-02-2019 PENDING LOCATION (Bld) [#/Vol] 10*3/uL 18:38-0400 [facility] (34288) Lymphocytes/100 24 % (NEG) 20 - 40 % 10-02-2019 PENDIN G LOCATION WBC (Bld) 18:38-0400 [facility] (16505) Magnesium 2.0 mg/dL (NEG) 1.7 - 2.2 mg/dL 10-02-2019 PENDIN G LOCATION [Mass/Vol] 18:38-0400 [facility] (80392) MCH (RBC) 33 pg (NEG) 27 - 31 pg 10-02-2019 PENDING LOC ATION [Entitic mass] 18:38-0400 [facility] (71651) MCHC (RBC) 33 g/dL (NEG) 32 - 36 g/dL 10-02-2019 PENDING LOCATION [Mass/Vol] 18:38-0400 [facility] (00278) MCV (RBC) 100 (H) 10-02-2019 PENDING LOCATI ON [Entitic vol] 18:38-0400 [facility] (27010) Methadone Screen Negative (no code) 10-02-2019 PENDING L OCATION Ql (U) 19:11-0400 [facility] (60782) Methamphetamine Negative (no code) 10-02-2019 PENDING LO CATION (U) [Mass/Vol] 19:11-0400 [facility] (43637) Monocytes (Bld) 0.9 10*3/uL (NEG) 0.3 - 0.9 10-02-2019 PEND ING LOCATION [#/Vol] 10*3/uL 18:38-0400 [facility] (70219) Monocytes/100 9 % (NEG) 2 - 8 % 10-02-2019 PENDING LOCATION WBC (Bld) 18:38-0400 [facility] (69484) Mucus Ql (Urine Negative (no code) 10-02-2019 PENDING LO CATION sed) 19:11-0400 [facility] (32618) Neutrophils 6.0 10*3/uL (NEG) 1.7 - 7 10*3/uL 10-02-2019 PE NDING LOCATION (Bld) [#/Vol] 18:38-0400 [facility] (77085) Neutrophils/100 66 % (NEG) 40 - 60 % 10-02-2019 PENDIN G LOCATION WBC (Bld) 18:38-0400 [facility] (81611) Nitrite Ql (U) Negative (no code) 10-02-2019 PENDING LOC ATION 19:11-0400 [facility] (30166) Opiates Screen Negative (no code) 10-02-2019 PENDING LOC ATION Ql (U) 19:11-0400 [facility] (10385) Oxycodone Ql (U) Negative (no code) 10-02-2019 PENDING L OCATION 19:11-0400 [facility] (48997) pH (U) 6.5 [pH] (no code) 4.6 - 8 [pH] 10-02-2019 PENDING L OCATION 19:11-0400 [facility] (25031) Phencyclidine Ql Negative (no code) 10-02-2019 PENDING L OCATION (U) 19:11-0400 [facility] (14138) Platelet mean 10.5 (H) 10-02-2019 PENDING LOCA TION volume (Bld) 18:38-0400 [facility] (54642) [Entitic vol] Platelets (Bld) 241 10*3/uL (NEG) 150 - 450 10-02-2019 PEND ING LOCATION [#/Vol] 10*3/uL 18:38-0400 [facility] (33335) Potassium 3.7 mmol/L (NEG) 3.7 - 5.2 mmol/L 10-02-2019 PEND ING LOCATION [Moles/Vol] 18:38-0400 [facility] (92698) Propoxyphene Ql Negative (no code) 10-02-2019 PENDING LO CATION (U) 19:11-0400 [facility] (24392) Protein 7.3 g/dL (NEG) 6.4 - 8.3 g/dL 10-02-2019 PENDING LOCATION [Mass/Vol] 18:38-0400 [facility] (03726) Protein Ql (U) Negative (no code) 10-02-2019 PENDING LOC ATION 19:11-0400 [facility] (50700) PT Coag (PPP) 13.1 s (NEG) 9.4 - 12.5 s 10-02-2019 PENDI NG LOCATION [Time] 18:38-0400 [facility] (60246) RBC (Bld) 3.83 10*6/uL (L) 4.2 - 6.1 10-02-2019 PENDING L OCATION [#/Vol] 10*6/uL 18:38-0400 [facility] (80673) RBC LM.HPF NONE (no code) 10-02-2019 PENDING LOCATI ON (Urine sed) 19:11-0400 [facility] ([id number]) [#/Area] RBC Ql (U) Negative (no code) 10-02-2019 PENDING LOCATI ON 19:11-0400 [facility] ([id number]) Sodium 143 mmol/L (NEG) 135 - 145 mmol/L 10-02-2019 PEND ING LOCATION [Moles/Vol] 18:38-0400 [facility] ([id number]) Specific gravity <= (no code) 10-02-2019 PENDING L OCATION (U) [Rel 19:11-0400 [facility] ([id number]) density] Tricyclic Negative (no code) 10-02-2019 PENDING LOCATI ON antidepressants 19:11-0400 [facility] ([id number]) Screen Ql (U) TSH Qn 2.62 m[IU]/L (NEG) 0.4 - 4 m[IU]/L 10-02-2019 PEN DING LOCATION 18:38-0400 [facility] ([id number]) Urea nitrogen 9 mg/dL (NEG) 7 - 20 mg/dL 10-02-2019 PENDI NG LOCATION [Mass/Vol] 18:38-0400 [facility] ([id number]) Urea 11 mg/mg (no code) 6 - 22 mg/mg 10-02-2019 PENDING L OCATION nitrogen/Creatin 18:38-0400 [facility] ([id number]) ine [Mass ratio] Urinalysis NO (no code) 10-02-2019 PENDING LOCATI ON complete W 19:11-0400 [facility] ([id number]) Reflex Culture panel - Urine Urobilinogen (U) 0.2 mg/dL (no code) 10-02-2019 PENDING L OCATION [Mass/Vol] 19:11-0400 [facility] ([id number]) WBC (Bld) 9.1 10*3/uL (NEG) 3.5 - 10.5 10-02-2019 PENDING L OCATION [#/Vol] 10*3/uL 18:38-0400 [facility] ([id number]) WBC LM.HPF NONE (no code) 10-02-2019 PENDING LOCATI ON (Urine sed) 19:110400 [facility] ([id number]) [#/Area] venous blood hemoglobin measurement (mass/volume) on 2017-11-08 Hemoglobin (HGB) 13.8 g/dL (no code) 12.1 - 17.2 g/dL [facility] (57744) blood neutrophils automated count (number/volume) on 2017-11-08 Neutrophils 2.4 10*3/uL (no code) 1.7 - 7 10*3/uL [facility] ([id number]) blood monocytes/100 leukocytes on 2017-11-08 Monocytes/100 10 % (no code) 2 - 8 % [facility] (46201) blood monocytes automated count (number/volume) on 2017-11-08 Monocytes 0.6 10*3/uL (no code) 0.3 - 0.9 [facility] 10*3/uL [facility] ([id number]) blood lymphocytes automated count (number/volume) on 2017-11-08 Lymphocytes 2.6 10*3/uL (no code) 0.9 - 2.9 [facility] 10*3/uL [facility] (31979) blood leukocytes automated count (number/volume) on 2017-11-08 WBC (Leukocytes) 5.6 10*3/uL (no code) 3.5 - 10.5 [facility] 10*3/uL [facility] (12460) blood hematocrit (volume fraction) on 2017-11-08 Hematocrit (HCT) 41 % (no code) 36.1 - 50.3 % [facility] (64804) blood erythrocytes automated count (number/volume) on 2017-11-08 Erythrocytes 4.27 10*6/uL (L) 4.2 - 6.1 [facility] (RBC) 10*6/uL [facility] (50071) automated erythrocyte mean corpuscular volume on 2017-11-08 MCV 96 fL (no code) 80 - 100 fL [facility] (60307) automated erythrocyte mean corpuscular hemoglobin concentration measurement (mass/volume) on 2017-11-08 MCHC 34 g/dL (no code) 32 - 36 g/dL [facility] (50992) automated erythrocyte mean corpuscular hemoglobin (mass per erythrocyte) on 2017-11-08 MCH 32 pg (no code) 27 - 31 pg [facility] (18837) automated erythrocyte distribution width ratio on 2017-11-08 RDW-CA 13.0 % (no code) 11.6 - 14.6 % [facility] (14152) automated eosinophil count on 2017-11-08 Eosinophils 0.1 10*3/uL (no code) 0.05 - 0.5 [facility] 10*3/uL [facility] (55374) automated blood platelet mean volume measurement on 2017-11-08 Platelet mean 11.0 fL (H) 7.2 - 11.7 fL [facility]) [facility] ([id number]) automated blood platelet count (count/volume) on 2017-11-08 Platelets 211 10*3/uL (no code) 150 - 450 [facility] 10*3/uL [facility] (70461) automated blood neutrophils/100 leukocytes on 2017-11-08 Neutrophils/100 42 % (no code) 40 - 60 % Via [facility] leukocytes [facility] (46128) automated blood lymphocytes/100 leukocytes on 2017-11-08 Lymphocytes/100 46 % (H) 20 - 40 % [facility] leukocytes [facility] (90390) automated blood eosinophils/100 leukocytes on 2017-11-08 Eosinophils/100 2 % (no code) 1 - 4 % Via [facility] leukocytes [facility] (49458) automated blood basophils/100 leukocytes on 2017-11-08 Basophils/100 1 % (no code) 0.5 - 1 % [facility] (92084) automated blood basophil count (count/volume) on 2017-11-08 Basophils 0.0 10*3/uL (no code) 0 - 0.3 10*3/uL [facility] ([id number]) Vital Signs The data below is from unstructured sources Vital Response Date/Time Temperature (Fahrenheit) 97.0 degree s F (97.6 - 99.5) 07/05/2016 10:10pm Temperature (Calculated Celsius) 36. 55202 degrees C (36.4 - 37.5) 07/05/2016 10:10pm [...] inches 07/05/2016 10:10pm Height (Calculated Centimeters) 162. 069300 cm 07/05/2016 10:10pm Weight (Pounds) 143 pounds 07/05/2016 10:10pm Weight (Calculated Kilograms) 64.863 710 kilograms 07/05/2016 10:10pm Capillary Refill Capillary Refill Less Than 3 Seconds 07/05/2016 10:10pm Height 5 ft 4 in Weight 143 lb Body Mass Index 24.5 kg/m^2 Vital Response Date/Time Temperature (Fahrenheit) 98.6 degree s F (97.6 - 99.5) 09/14/2016 6:55pm Temperature (Calculated Celsius) 37. 14698 degrees C (36.4 - 37.5) 09/14/2016 6:55pm [...] inches 09/14/2016 6:45pm Height (Calculated Centimeters) 162. 508982 cm 09/14/2016 6:45pm Weight (Pounds) 164 pounds 09/14/2016 6:45pm Weight (Ounces) 8.0 oz 0 09/14/2016 6:45pm Weight (Calculated Grams) 28628.95 gm 09/14/2016 6:45pm Weight (Calculated Kilograms) 74.615 946 kilograms 09/14/2016 6:45pm Calculated BMI 28.2 08/21 6:45pm Vital Response Date/Time Temperature (Fahrenheit) 98.5 degree s F (97.6 - 99.5) Temperature (Calculated Celsius) 36. 11949 degrees C (36.4 - 37.5) Temperature Source Temporal Pulse Rate (adult) 55 bpm (60 - 90) Respiratory Rate 16 bpm (12 - 24) O2 Sat by Pulse Oximetry 100 % (88 - 100) Blood Pressure 122/86 mm Hg Pain Pain Intensity 0 Height (Feet) 5 feet Height (Inches) 4.00 inches Height (Calculated Centimeters) 162. 746836 cm Weight (Pounds) 134 pounds Weight (Ounces) 6.0 oz Weight (Calculated Grams) 38113.475 gm Weight (Calculated Kilograms) 60.951 475 kilograms Height 5 ft 4 in Weight 134 lb Body Mass Index 23.1 kg/m^2 Vital Response Date/Time Temperature (Fahrenheit) 97.7 degree s F (97.6 - 99.5) Temperature (Calculated Celsius) 36. 89899 degrees C (36.4 - 37.5) Temperature Source Temporal Pulse Rate (adult) 73 bpm (60 - 90) Respiratory Rate 16 bpm (12 - 24) O2 Sat by Pulse Oximetry 99 % (88 - 100) Blood Pressure 136/96 mm Hg Pain Pain Intensity 7 Height (Feet) 5 feet Height (Inches) 4 inches Height (Calculated Centimeters) 162. 364110 cm Weight (Pounds) 140 pounds Weight (Calculated Kilograms) 63.502 932 kilograms Calculated BMI 24.03 Vital Response Date/Time Temperature (Fahrenheit) 97.8 degree s F (97.6 - 99.5) 10/19/2016 7:40pm Temperature (Calculated Celsius) 36. 23240 degrees C (36.4 - 37.5) 10/19/2016 7:40pm [...] inches 10/19/2016 7:45pm Height (Calculated Centimeters) 162. 219335 cm 10/19/2016 7:45pm Weight (Pounds) 174 pounds 10/19/2016 7:45pm Weight (Ounces) 6.0 oz 0 10/19/2016 7:45pm Weight (Calculated Grams) 21797.17 gm 10/19/2016 7:45pm Weight (Calculated Kilograms) 79.095 170 kilograms 10/19/2016 7:45pm Calculated BMI 29.9 09/22 7:45pm Vital Response Date/Time Temperature (Fahrenheit) 97.6 degree s F (97.6 - 99.5) 10/03/2017 3:10pm Temperature (Calculated Celsius) 36. 65389 degrees C (36.4 - 37.5) 10/03/2017 2:40pm [...] inches 10/03/2017 10:30am Height (Calculated Centimeters) 162. 328550 cm 10/03/2017 10:30am Weight (Pounds) 115 pounds 10/03/2017 10:30am Weight (Ounces) 0.0 oz 0 10/03/2017 10:30am Weight (Calculated Grams) 79359.12 gm 10/03/2017 10:30am Weight (Calculated Kilograms) 52.163 123 kilograms 10/03/2017 10:30am Calculated BMI 19.7 09/20 10:30am Vital Response Date/Time Temperature (Fahrenheit) 98.4 degree s F (97.6 - 99.5) 11/08/2017 2:50pm Temperature (Calculated Celsius) 36. 18674 degrees C (36.4 - 37.5) 11/08/2017 2:50pm [...] inches 11/08/2017 9:51am Height (Calculated Centimeters) 162. 601367 cm 11/08/2017 9:51am Weight (Pounds) 115 pounds 11/08/2017 9:51am Weight (Ounces) 0.0 oz 0 11/08/2017 9:51am Weight (Calculated Grams) 42201.12 gm 11/08/2017 9:51am Weight (Calculated Kilograms) 52.163 123 kilograms 11/08/2017 9:51am Calculated BMI 19.7 10/21 9:51am Vital Reading Result Col lection Date/Time Vital Reading Result Col lection Date/Time Interventions No Information Plan of Treatment Normalized Care Care Detail Care Activity Date Care Provider F acility Activity Bacteria identified no information no information [facility] [employer] [address] (Work Phone: [place] [phone] ) ([id number]) Patient Education no information no information [facility] [address] (Work Phone: [place] [phone] ) ([id number]) Patient referral no information no information [facility] [address] [address] (Work Phone: [place] [phone] ) ([id number]) Goals Patient Goal Desired Goal no information no information Social History Normalized Code Original Code Date Value Tobacco smoking status Tobacco smoking status no information Smokes tobacco daily NHIS NHIS (finding) no information no information 09-15-2014 Denies Use no information no information 08-29-2013 No no information no information 10-03-2019 Current Everyda y Smoker no information no information 10-03-2019 Cigarettes Sex Assigned At Sex Assigned At no information F emale Functional Status No Information Mental Status Status Assessment Result Care Provider Facility Cognitive function Comprehension Ability [facility] [employer] [id number] (Work Phone: [facility] [phone]) ) Encounters Encounter Normalized Encounter Encounter Diagnosis Care Provi chloe Organization Date Type 08-13-2018 (WALK-IN) Walk-In Care [facility] (no [facility] - [...] no phone) 08-24-2018 encounter - 08-24-2018 06-22-2019 [facility] Major depressive LUISITO SORIA (n o phone) [facility] disorder, recurrent, (no phone) moderate 05-08-2019 [facility] Major depressive NICHOL Burns (no [facility] disorder, recurrent, phone) (no phone) moderate 05-05-2019 [facility] Generalized anxiety BAUDILIO THORPE (no [facility] disorder phone) (no phone) 04-30-2019 [facility] Major depressive ASPEN ABILON (no [facility] disorder, recurrent, phone) (no phone) moderate 04-02-2019 [facility] Major depressive NICHOL Burns (no [facility] disorder, recurrent, phone) (no phone) moderate 07-10-2012 [facility] no information MARYCAROLE HERNANDEZ N (no [facility] - phone) (no phone) 07-10-2012 - 07-10-2012 05-02-2012 [facility] no information MARY HERNANDEZ N (no [facility] - phone) (no phone) 05-02-2012 - 05-02-2012 03-05-2012 [facility] no information MARY Cloud (no [facility] - phone) Doctor (no phone) 03-05-2012 [facility] (no phone) - 03-05-2012 02-20-2012 [facility] no information MARY ANDERSO N (no [facility] - phone) Doctor (no phone) 02-20-2012 [facility] (no phone) - 02-20-2012 01-10-2012 [facility] no information MARY ANDERSO N (no [facility] - phone) (no phone) 01-10-2012 - 01-10-2012 11-09-2011 [facility] no information MARY ANDERSO N (no [facility] - phone) (no phone) 11-09-2011 - 11-09-2011 10-12-2011 [facility] no information MARY ANDERSO N (no [facility] - phone) (no phone) 10-12-2011 - 10-12-2011 09-21-2011 [facility] no information MARY ANDERSO N (no [facility] - phone) (no phone) 09-21-2011 - 09-21-2011 08-15-2011 [facility] no information MARY ANDERSO N (no [facility] - phone) (no phone) 08-15-2011 - 08-15-2011 08-02-2011 [facility] no information MARY ANDERSO N (no [facility] - phone) (no phone) 08-02-2011 - 08-02-2011 07-19-2011 [facility] no information MARY ANDERSO N (no [facility] - phone) (no phone) 07-19-2011 - 07-19-2011 07-04-2011 [facility] no information MARY ANDERSO N (no [facility] - phone) (no phone) 07-04-2011 - 07-04-2011 06-14-2011 [facility] no information MARY ANDERSO N (no [facility] - phone) (no phone) 06-14-2011 - 06-14-2011 05-30-2011 [facility] no information MARY ANDERSO N (no [facility] - phone) (no phone) 05-30-2011 - 05-30-2011 05-11-2011 [facility] no information MARY HERNANDEZ N (no [facility] - phone) (no phone) 05-11-2011 - 05-11-2011 04-27-2011 [facility] no information MARY HERNANDEZ N (no [facility] - phone) (no phone) 04-27-2011 - 04-27-2011 03-22-2011 [facility] no information Doctor Migrati on (no [facility] - phone) (no phone) 03-22-2011 - 03-22-2011 10-03-2019 Emergency department no information (no phone) [facility] patient visit [facility] (no phone) 10-03-2019 10-02-2019 Emergency department no information THIERNO BAILEY DO (no [facility] - patient visit phone) [facility] 10-02-2019 (no phone) 06-02-2016 Emergency department no information [...] no information NICHOL SHANNON (n o [facility] procedure phone) [facility] (no phone) 06-22-2019 Patient encounter Generalized anxiety BAUDILIOMALIKA ADLER JOHN [facility] procedure disorder phone) (no phone) 04-30-2019 Patient encounter Major depressive DAVE RUIZ (no [facility] - procedure disorder, recurrent, phone) [...] encounter Major depressive NICHOL SHANNON (no [facility] disorder, recurrent, phone) (no phone) moderate 04-13-2019 Telephone encounter no information [facility] SHANNON [facility] phone) (no phone) 05-15-2011 Telephone encounter no information Doctor Migration (no [facility] - phone) (no phone) 05-15-2011 - 05-15-2011 no information Pre-operative no name no organization name examination, unspecified Medical Equipment The data below is from unstructured sourcesNo Medical Equipment Information available Payers Normalized Payer Value [facility] no information Private Health Insurance no information ([id number]) Evaluation note Note Type Note Facility Evaluation No Assessments Information Available A scension note [facility] ([id number]) History general Narrative - Reported Note Type Note Facility History general Narrative - Reported Type Surgical tubal ligation History Surgical History Surgical cholecystectomy History Hospitaliz Child ation History [facility] ([id number]) Advance Directives Directive Response Recor ded Date/Time Advance Directives No 10:10pm Health Care Power of Blueprint Reader No 07/05/16 10:10pm Organ Donor Yes 07/05/16 10:10pm Resuscitation Status Full Code 07/05/16 10:10pm Directive Response Recor ded Date/Time Advance Directives No 6:45pm Health Care Power of Blueprint Reader No 09/14/16 6:45pm Organ Donor Yes 09/14/16 6:45pm Resuscitation Status Full Code 09/14/16 6:45pm Directive Response Recor ded Date/Time Advance Directives No 10:08am Health Care Power of Blueprint Reader No 06/02/14 10:08am Organ Donor Yes 06/02/14 10:08am Resuscitation Status Full Code 06/02/14 10:08am Directive Response Recor ded Date Advance Directives N 7:49am Directive Response Recor ded Date/Time Advance Directives No 8:08am Health Care Power of Blueprint Reader No 09/15/14 8:08am Organ Donor Yes 09/15/14 8:08am Resuscitation Status Full Code 09/15/14 8:08am Directive Response Recor ded Date/Time Advance Directives No 7:38pm Health Care Power of Blueprint Reader No 10/19/16 7:38pm Organ Donor Yes 10/19/16 7:38pm Resuscitation Status Full Code 10/19/16 7:38pm Directive Response Recor ded Date/Time Advance Directives No 10:30am Health Care Power of Blueprint Reader No 10/03/17 10:30am Organ Donor Yes 10/03/17 10:30am Resuscitation Status Full Code 10/03/17 10:30am Directive Response Recor ded Date/Time Advance Directives No 9:49am Health Care Power of Blueprint Reader No 11/08/17 9:49am Organ Donor Yes 11/08/17 9:49am Resuscitation Status Full Code 11/08/17 9:49am Advance Directive Response Recorded Date/Time Advance Directives No 2019 10:36pm Health Care Power of Blueprint Reader No October 02, 2019 10:36pm Organ Donor Yes September 10:36pm Resuscitation Status Full Code October 02, 2019 10:36pm Discharge Instructions No hospital discharge instructions.No hospital discharge instruction information available.No hospital discharge instructions.No hospital discharge instructions.No hospital discharge instruction information available.No hospital discharge instruction information available.No hospital discharge instruction information available. Chief Complaint and Reason for Visit Chief Complaint Dizziness/Syncope Reason for Visit COVID P.U.I. [id number] Additional Source Comments This clinical document has been generated using adicate timeads software that has been certified by the Office of the National Coordinator for Health Information Technology (ONC 15.99.04.3023.Diam.31.00.0.182679) and the National Committee for Cleaning And Washing Equipment Operator (NCQA, as an eMeasure certified technology). FOR [...] BASED ON T HE PRIMARY CLINICAL RECORDS. [employer] provides no warranty or guara ntee of the accuracy or completeness of information in this document.The followi ng information is based on time limited clinical information UNRECOGNIZED CONTENT PROVIDED BELOW FOR UNRECOGNIZED SECTION REASON FOR VISIT EMR-[facility] UNRECOGNIZED CONTENT PROVIDED BELOW FOR UNRECOGNIZED SECTION MEDICAL (GENERAL) HISTORY Type Description Date Surgical History tubal ligation Hospitalization History Child
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
[2019-10-04] MEDS ORDERED: NS IV 1000 ML 1,000 ML IV SCH (21:00)
--- NOTE | 2019-10-04 21:01 | ED General ---
General Chief Complaint: Altered Mental Status Stated Complaint: AMS Source of Information: Patient Exam Limitations: No Limitations History of Present Illness Date Seen by Provider: Oct 04, 2019 Time Seen by Provider: 20:58 Initial Comments To ER with reports of altered mental status. This began allegedly yesterday, she was seen here and diagnosed with strep throat and given amoxicillin. She was having some dizziness and she's been wearing a scopolamine patch. She takes sertraline and gabapentin. She denies any other drug use. Interestingly, her significant other was just admitted with altered mental status and intubated, when I spoke with her in the waiting room she was normal alert and oriented conversing appropriately. Within the course of the past 1.5 hours she has allegedly developed this confusion again that she had yesterday as well. Timing/Duration: 1-2 Days Severity: Moderate Allergies and Home Medications Allergies Coded Allergies: No Known Drug Allergies (Unverified , 10/03/17) Home Medications Docusate Sodium 100 Mg Capsule, 100 MG PO DAILY Prescribed by: DELISA LANDA on 10/03/17 1228 Hydrocodone Bit/Acetaminophen 1 Tab Tab, 1 TAB PO Q4H PRN Prescribed by: DELISA LANDA on 11/08/17 1148 Patient Home Medication List Home Medication List Reviewed: Yes Review of Systems Review of Systems Constitutional: see HPI EENTM: see HPI Respiratory: no symptoms reported Cardiovascular: no symptoms reported Genitourinary: no symptoms reported Musculoskeletal: no symptoms reported Skin: no symptoms reported Psychiatric/Neurological: No Symptoms Reported Hematologic/Lymphatic: No Symptoms Reported Past Eiqhgpf-Gmvsel-Wenjxl Hx Patient Social History Type Used: Cigarettes Recent Foreign Travel: No Contact w/Someone Who Travel: No Recent Hopitalizations: No Immunizations Up To Date Tetanus Booster (TDap): Unknown Date of Influenza Vaccine: Jan 20, 2017 Seasonal Allergies Seasonal Allergies: No Past Medical History Surgeries: Yes (PILONIDAL CYST REMOVAL X 3, wisdom teeth) Section, Gallbladder, Tonsillectomy, Tubal Ligation Respiratory: No Cardiac: Yes (DIZZINESS AND SYNCOPE FOR YEARS) Syncope Neurological: No Reproductive Disorders: No Female Reproductive Disorders: Denies 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 Sexually Transmitted Disease: No Genitourinary: No Gastrointestinal: Yes (S/P CHOLECYSTECTOMY) Gall Bladder Disease Musculoskeletal: No Endocrine: No HEENT: Yes (S/P TONSILLECTOMY) Tonsilitis Cancer: No Psychosocial: Yes (OFF MEDICATION) Anxiety Integumentary: No Blood Disorders: No Adverse Reaction/Blood Tranf: No Family Medical History Family history: Diabetes mellitus 19 FATHER, Onset:Unknown grandfather, Onset:Unknown Family history: Hypertension grandmother, Onset:Unknown No Pertinent Family Hx Physical Exam Vital Signs Vital Signs - First Documented 10/04/19 21:01 Temp 37.2 Pulse 76 Resp 20 B/P (MAP) 130/90 (103) Pulse Ox 100 O2 Delivery Room Air Capillary Refill : Height, Weight, BMI Height: 5'4.00" Weight: 115lbs. 0.0oz. 52.619055tu; 19.00 BMI Method:Stated General Appearance: No Apparent Distress, WD/WN, Other (lethargic but answers questions appropriately. pUPILS dilated but she is wearing a scopalomine patch. ) HEENT: PERRL/EOMI, TMs Normal Neck: Full Range of Motion, Normal Inspection Respiratory: No Accessory Muscle Use, No Respiratory Distress Cardiovascular: Regular Rate, Rhythm, Normal Peripheral Pulses Gastrointestinal: Normal Bowel Sounds, Non Tender, Soft Neurologic/Psychiatric: Alert Skin: Normal Color, Warm/Dry Progress/Results/Core Measures Suspected Sepsis SIRS Temperature: Pulse: Respiratory Rate: Laboratory Tests 10/04/19 20:58: White Blood Count 9.6 Blood Pressure / Mean: Laboratory Tests 10/04/19 20:58: Creatinine 0.85, Platelet Count 244, Total Bilirubin 0.6 Results/Orders Lab Results Laboratory Tests Test 10/04/19 20:58 10/04/19 21:07 Range/Units White Blood Count 9.6 4.3-11.0 10^3/uL Red Blood Count 3.88 L 4.35-5.85 10^6/uL Hemoglobin 13.0 11.5-16.0 G/DL Hematocrit 39 35-52 % Mean Corpuscular Volume 100 H 80-99 FL Mean Corpuscular Hemoglobin 34 25-34 PG Mean Corpuscular Hemoglobin Concent 34 32-36 G/DL Red Cell Distribution Width 12.5 10.0-14.5 % Platelet Count 244 130-400 10^3/uL Mean Platelet Volume 10.6 H 7.4-10.4 FL Neutrophils (%) (Auto) 64 42-75 % Lymphocytes (%) (Auto) 24 12-44 % Monocytes (%) (Auto) 11 0-12 % Eosinophils (%) (Auto) 1 0-10 % Basophils (%) (Auto) 0 0-10 % Neutrophils # (Auto) 6.1 1.8-7.8 X 10^3 Lymphocytes # (Auto) 2.3 1.0-4.0 X 10^3 Monocytes # (Auto) 1.1 H 0.0-1.0 X 10^3 Eosinophils # (Auto) 0.1 0.0-0.3 10^3/uL Basophils # (Auto) 0.0 0.0-0.1 10^3/uL Sodium Level 143 135-145 MMOL/L Potassium Level 3.5 L 3.6-5.0 MMOL/L Chloride Level 110 H 98-107 MMOL/L Carbon Dioxide Level 19 L 21-32 MMOL/L Anion Gap 14 5-14 MMOL/L Blood Urea Nitrogen 6 L 7-18 MG/DL Creatinine 0.85 0.60-1.30 MG/DL Estimat Glomerular Filtration Rate > 60 BUN/Creatinine Ratio 7 Glucose Level 78 70-105 MG/DL Calcium Level 9.6 8.5-10.1 MG/DL Corrected Calcium 9.3 8.5-10.1 MG/DL Total Bilirubin 0.6 0.1-1.0 MG/DL Aspartate Amino Transf (AST/SGOT) 38 H 5-34 U/L Alanine Aminotransferase (ALT/SGPT) 58 H 0-55 U/L Alkaline Phosphatase 92 40-136 U/L Total Protein 7.2 6.4-8.2 GM/DL Albumin 4.4 3.2-4.5 GM/DL Salicylates Level < 5.0 L 5.0-20.0 MG/DL Acetaminophen Level < 10 L 10-30 UG/ML Serum Alcohol < 10 <10 MG/DL Urine Test NEGATIVE NEGATIVE Urine Opiates Screen NEGATIVE NEGATIVE Urine Oxycodone Screen NEGATIVE NEGATIVE Urine Methadone Screen NEGATIVE NEGATIVE Urine Propoxyphene Screen NEGATIVE NEGATIVE Urine Barbiturates Screen NEGATIVE NEGATIVE Ur Tricyclic Antidepressants Screen NEGATIVE NEGATIVE Urine Phencyclidine Screen NEGATIVE NEGATIVE Urine Amphetamines Screen POSITIVE H NEGATIVE Urine Methamphetamines Screen POSITIVE H NEGATIVE Urine Benzodiazepines Screen NEGATIVE NEGATIVE Urine Cocaine Screen NEGATIVE NEGATIVE Urine Cannabinoids Screen NEGATIVE NEGATIVE My Orders Orders - KAMAR MENDENHALL [employer] Cbc With Automated Diff (10/04/19 20:57) Hcg,Qualitative Urine (10/04/19 20:57) Comprehensive Metabolic Panel (10/04/19 20:57) Ct Head Wo (10/04/19 20:57) Alcohol (10/04/19 20:57) Salicylate (10/04/19 20:57) Acetaminophen (10/04/19 20:57) Ed Iv/Invasive Line Start (10/04/19 20:57) Ns Iv 1000 Ml (Sodium Chloride 0.9%) (10/04/19 21:00) Drug Screen Stat (Urine) (10/04/19 20:57) Vital Signs/I&O 10/04/19 21:01 Temp 37.2 Pulse 76 Resp 20 B/P (MAP) 130/90 (103) Pulse Ox 100 O2 Delivery Room Air Capillary Refill : Departure Communication (Admissions) 2137 went into the room and called the patient's name in a soft voice, she did not respond. I then called her name again and she still didn't respond. I then advised her that she could wake up or I would need to discuss her labs with her mom to determine plan of care which would include advising her of the methamphetamine in her urine. At which point she awakened and began talking to me. She states that she smoked something yesterday which must have had met hamphetamine in it and she got very anxious earlier today and her mom gave her 1 Klonopin. At which point she became confused. Impression Primary Impression: Drug abuse Additional Impression: Elevated liver enzymes Disposition: HOME, SELF-CARE Condition: Stable Departure-Patient Inst. Decision time for Depature: 21:39 [place]: [facility] [place] Primary Care Physician Patient Instructions: Drug Abuse Treatment Add. Discharge Instructions: 1. Your liver enzymes were slightly elevated, follow-up with your doctor this week to further evaluate these. Do not use any more Klonopin as that can certainly cause your confusion and lethargy. It would be ill advised to smoke anything again, apparently what you smoked yesterday was methamphetamine. All discharge instructions reviewed with patient and/or family. Voiced understanding. KAMAR MENDENHALL APRN Oct 04, 2019 21:00
[2019-10-04 21:17] LABS: BASOPHILS % (AUTO) 0 % (0-10); EOSINOPHILS # (AUTO) 0.1 10^3/uL (0.0-0.3); EOSINOPHILS % (AUTO) 1 % (0-10); HEMATOCRIT 39 % (35-52); LYMPHOCYTES # (AUTO) 2.3 X 10^3 (1.0-4.0); LYMPHOCYTES % (AUTO) 24 % (12-44); MEAN CORPUSCULAR HEMOGLOBIN 34 PG (25-34); MEAN CORPUSCULAR HGB CONC 34 G/DL (32-36); MEAN CORPUSCULAR VOLUME 100 FL (80-99); MEAN PLATELET VOLUME 10.6 FL (7.4-10.4); MONOCYTES # (AUTO) 1.1 X 10^3 (0.0-1.0); MONOCYTES % (AUTO) 11 % (0-12); NEUTROPHILS # (AUTO) 6.1 X 10^3 (1.8-7.8); NEUTROPHILS % (AUTO) 64 % (42-75); PLATELET COUNT 244 10^3/uL (130-400); RED CELL DISTRIBUTION WIDTH 12.5 % (10.0-14.5); WHITE BLOOD COUNT 9.6 10^3/uL (4.3-11.0)
[2019-10-04 21:18] LABS: HCG,QUALITATIVE URINE NEGATIVE (NEGATIVE)
[2019-10-04 21:24] LABS: AMPHETAMINE SCREEN, URINE POSITIVE (NEGATIVE); BARBITURATE SCREEN URINE NEGATIVE (NEGATIVE); BENZODIAZEPINES SCREEN URINE NEGATIVE (NEGATIVE); CANNABINOID SCREEN, URINE NEGATIVE (NEGATIVE); COCAINE SCREEN URINE NEGATIVE (NEGATIVE); METHADONE STAT NEGATIVE (NEGATIVE); METHAMPHETAMINE SCREEN URINE S POSITIVE (NEGATIVE); OPIATE SCREEN URINE NEGATIVE (NEGATIVE); OXYCODONE STAT NEGATIVE (NEGATIVE); PROPOXYPHENE STAT NEGATIVE (NEGATIVE); TRICYCLIC ANTIDEPRESSANTS SCRE NEGATIVE (NEGATIVE)
[2019-10-04 21:36] LABS: ALANINE AMINOTRANSFERASE 58 U/L (0-55); ALBUMIN 4.4 GM/DL (3.2-4.5); ALKALINE PHOSPHATASE 92 U/L (40-136); BILIRUBIN,TOTAL 0.6 MG/DL (0.1-1.0); BUN/CREATININE RATIO 7; CALCIUM 9.6 MG/DL (8.5-10.1); CARBON DIOXIDE 19 MMOL/L (21-32); CHLORIDE 110 MMOL/L (98-107); CREATININE SERUM 0.85 MG/DL (0.60-1.30); GFR ESTIMATED > 60; GLUCOSE 78 MG/DL (70-105); POTASSIUM 3.5 MMOL/L (3.6-5.0); SALICYLATE < 5.0 MG/DL (5.0-20.0); SODIUM 143 MMOL/L (135-145); TOTAL PROTEIN 7.2 GM/DL (6.4-8.2)
[2019-10-04 21:40] LABS: ACETAMINOPHEN < 10 UG/ML (10-30)
--- NOTE | 2019-10-04 21:46 | Diagnostic Imaging Report ---
INDICATION: Headache. Confusion. TECHNIQUE: Routine non contrast-enhanced axial images were obtained from the skull base to the vertex. Auto Exposure Controls were utilized during the CT exam to meet ALARA standards for radiation dose reduction COMPARISON: 04/02/2012. FINDINGS: The ventricles and cortical sulci are normal in size and contour. There is no midline shift or mass-effect. No acute intra-axial hemorrhage is seen. There are no abnormal areas of increased or decreased density to suggest acute hemorrhage or edema. No extra-axial mass or collection is present. The bony calvarium is intact. The visualized paranasal sinuses show scattered mucosal thickening. The mastoid air cells are clear. IMPRESSION: No acute intracranial abnormality. No CT evidence of mass, acute infarct or intracranial hemorrhage. Dictated by: Dictated on workstation # [id number]
--- NOTE | 2019-10-04 22:59 | NUR ---
Pt resting at this time, snoring. Not responsive to verbal stimuli, responsive to shaking.
[2019-10-04] MEDS ORDERED: LACTATED RINGERS 1,000 ML IV ONE (23:45)
[2019-10-05 00:51] VITALS: BP 97/60
== END 2019-10-05 00:45 | disposition home or self-care (01) ==
LOC: EDUNIT# 20:47 → ER 20:48
DX: F19.10 Other psychoactive substance abuse, uncomplicated (principal); R94.5 Abnormal results of liver function studies; Z82.49 Family history of ischemic heart disease and other diseases of the circulatory system
CPT/HCPCS: 70450; 80053; 80306; 84703; 85025; 99284; G0480 ×3; 36415; 80320; 80329

== ENCOUNTER 2020-01-25 19:51 | Observation (INO) | payer MEDICAID ==
[~2020-01-25] VITALS: Ht 162.6 cm; Wt 52.7 kg
[2020-01-25] VITALS (7 sets, daily range): BP systolic 105–121; BP diastolic 64–79
[2020-01-25] MEDS ORDERED: NS IV 1000 ML 1,000 ML IV SCH (20:00)
[2020-01-25] MEDS ORDERED: LORazepam INJ 2 MG/ML (ATIVAN) VIAL IVP PRN (20:00)
--- NOTE | 2020-01-25 20:05 | ED Psychosocial ---
General Chief Complaint: Psych/Social Disorder Stated Complaint: OD Source: patient Exam Limitations: no limitations History of Present Illness Date Seen by Provider: Jan 25, 2020 Time Seen by Provider: 19:59 Initial Comments Door open to ER with reports of overdose. She is brought in by [facility] after her friend found her at 1843 with a bag over her head and tied around the bottom. Friend could see the bag shrinking and expanding so she knew she was breathing. She immediately removed from Antonia's head. She allegedly had taken a handful of medications between 1800 when her mother talked to her and 1842 when her friends found her. These include 3 Klonopin, 10 Adderall, for baclofen and 10 gabapentin. The dosages of these are unknown because she bought them off the street. She doesn't volunteer much information but when asked if she was trying to kill herself she shakes her head yes, he is tearful. When asked if this is because of a breakup or relationship status change she shakes her head yes. She states "I don't want to be here". I advised her that she needs to be here, she states "no, I mean in this life". 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 Apparently tried to get an appointment with [facility] but was unable to get in soon. Timing/Duration: just prior to arrival Severity: moderate Allergies and Home Medications Allergies Coded Allergies: No Known Drug Allergies (Unverified , 10/03/17) Home Medications Docusate Sodium 100 Mg Capsule, 100 MG PO DAILY Prescribed by: DELISA LANDA on 10/03/17 1228 Hydrocodone Bit/Acetaminophen 1 Tab Tab, 1 TAB PO Q4H PRN Prescribed by: DELISA LANDA on 11/08/17 1148 Patient Home Medication List Home Medication List Reviewed: Yes Review of Systems Constitutional: see HPI EENTM: see HPI Respiratory: no symptoms reported Cardiovascular: no symptoms reported Genitourinary: no symptoms reported Musculoskeletal: no symptoms reported Skin: no symptoms reported Psychiatric/Neurological: See HPI Past Rrmnxrh-Yqhpnr-Qayfcu Hx Patient Social History Type Used: Cigarettes Recent Hopitalizations: No Immunizations Up To Date Tetanus Booster (TDap): Unknown Date of Influenza Vaccine: Jan 20, 2017 Seasonal Allergies Seasonal Allergies: No Past Medical History Surgeries: Yes (PILONIDAL CYST REMOVAL X 3, wisdom teeth) Section, Gallbladder, Tonsillectomy, Tubal Ligation Respiratory: No Cardiac: Yes (DIZZINESS AND SYNCOPE FOR YEARS) Syncope Neurological: No Reproductive Disorders: No Female Reproductive Disorders: 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 0.0oz. 52.737429mo; 21.00 BMI Method:Stated General Appearance: WD/WN, no apparent distress, other (tearful ) HEENT: PERRL/EOMI, normal ENT inspection Respiratory: no respiratory distress, no accessory muscle use Cardiovascular: regular rate, rhythm, no murmur Gastrointestinal: normal bowel sounds, non tender, soft Neurologic/Psychiatric: alert, normal mood/affect, oriented x 3 Appearance/Memory: appropriate appearance, appropriate insight Behavior/Eye Contact: cooperative, other (tearful) Thoughts/Hallucinations: normal thought pattern, no apparent hallucination Skin: normal color, warm/dry Progress/Results/Core Measures Results/Orders Lab Results Laboratory Tests Test 01/25/20 20:10 01/25/20 20:20 Range/Units Urine Color YELLOW Urine Clarity CLOUDY Urine pH 6.5 5-9 Urine Specific Red Level 1.020 1.016-1.022 Urine Protein NEGATIVE NEGATIVE Urine Glucose (UA) NEGATIVE NEGATIVE Urine Ketones NEGATIVE NEGATIVE Urine Nitrite POSITIVE H NEGATIVE Urine Bilirubin NEGATIVE NEGATIVE Urine Urobilinogen 0.2 < = 1.0 MG/DL Urine Leukocyte Esterase NEGATIVE NEGATIVE Urine RBC (Auto) NEGATIVE NEGATIVE Urine RBC NONE /HPF Urine WBC 2-5 /HPF Urine Squamous Epithelial Cells 2-5 /HPF Urine Crystals NONE /LPF Urine Bacteria LARGE H /HPF Urine Casts NONE /LPF Urine Mucus NEGATIVE /LPF Urine Culture Indicated YES Urine Opiates Screen NEGATIVE NEGATIVE Urine Oxycodone Screen NEGATIVE NEGATIVE Urine Methadone Screen NEGATIVE NEGATIVE Urine Propoxyphene Screen NEGATIVE NEGATIVE Urine Barbiturates Screen NEGATIVE NEGATIVE Ur Tricyclic Antidepressants Screen NEGATIVE NEGATIVE Urine Phencyclidine Screen NEGATIVE NEGATIVE Urine Amphetamines Screen POSITIVE H NEGATIVE Urine Methamphetamines Screen NEGATIVE NEGATIVE Urine Benzodiazepines Screen NEGATIVE NEGATIVE Urine Cocaine Screen NEGATIVE NEGATIVE Urine Cannabinoids Screen POSITIVE H NEGATIVE White Blood Count 12.7 H 4.3-11.0 10^3/uL Red Blood Count 4.54 3.80-5.11 10^6/uL Hemoglobin 14.6 11.5-16.0 g/dL Hematocrit 46 35-52 % Mean Corpuscular Volume 100 H 80-99 fL Mean Corpuscular Hemoglobin 32 25-34 pg Mean Corpuscular Hemoglobin Concent 32 32-36 g/dL Red Cell Distribution Width 12.8 10.0-14.5 % Platelet Count 292 130-400 10^3/uL Mean Platelet Volume 10.4 9.0-12.2 fL Immature Granulocyte % (Auto) 0 % Neutrophils (%) (Auto) 71 42-75 % Lymphocytes (%) (Auto) 21 12-44 % Monocytes (%) (Auto) 7 0-12 % Eosinophils (%) (Auto) 1 0-10 % Basophils (%) (Auto) 0 0-10 % Neutrophils # (Auto) 9.0 H 1.8-7.8 10^3/uL Lymphocytes # (Auto) 2.6 1.0-4.0 10^3/uL Monocytes # (Auto) 0.9 0.0-1.0 10^3/uL Eosinophils # (Auto) 0.1 0.0-0.3 10^3/uL Basophils # (Auto) 0.0 0.0-0.1 10^3/uL Immature Granulocyte # (Auto) 0.0 0.0-0.1 10^3/uL Sodium Level 143 135-145 MMOL/L Potassium Level 4.0 3.6-5.0 MMOL/L Chloride Level 107 98-107 MMOL/L Carbon Dioxide Level 22 21-32 MMOL/L Anion Gap 14 5-14 MMOL/L Blood Urea Nitrogen 13 7-18 MG/DL Creatinine 0.85 0.60-1.30 MG/DL Estimat Glomerular Filtration Rate > 60 BUN/Creatinine Ratio 15 Glucose Level 72 70-105 MG/DL Calcium Level 9.7 8.5-10.1 MG/DL Corrected Calcium 8.5-10.1 MG/DL Total Bilirubin 0.2 0.1-1.0 MG/DL Aspartate Amino Transf (AST/SGOT) 24 5-34 U/L Alanine Aminotransferase (ALT/SGPT) 37 0-55 U/L Alkaline Phosphatase 100 40-136 U/L Total Protein 7.7 6.4-8.2 GM/DL Albumin 4.8 H 3.2-4.5 GM/DL My Orders Orders - KAMAR MENDENHALL APRN Ekg Tracing (01/25/20:57) Cbc With Automated Diff (01/25/2057) Comprehensive Metabolic Panel (01/25/20:) Ua Culture If Indicated (01/25/20) Drug Screen Stat (Urine) (01/25/20) Salicylate (01/25/20) Acetaminophen (01/25/20:) Alcohol (01/25/20:) Ed Iv/Invasive Line Start (01/25/20:) Lorazepam Injection (Ativan Injection) (01/25/20 20:00) Ns Iv 1000 Ml (Sodium Chloride 0.9%) (01/25/20 20:00) Urine Culture (01/25/20 20:10) Departure Communication (Admissions) Family Conversation 2099-remains sedate but cooperative. I will swab her for coronavirus, not becaus e she is a PUI. To clarify, SHE IS NOT A PERSON UNDER INVESTIGATION FOR COVID. I'm doing this only to facilitate inpatient psych placement if mental health deems that necessary tomorrow. 2022-Spoke with Poison control. symptomatic and supportive care. Adderall would be most concerning med, can cause hypertension/tachycardia which should be treated with Benzos. Can cause ME, CVA due to vasospasm. Watch for rhabdo with hyperactivity so check CK if hyperactive, (she is not currently). Any rise in temperature would warrant aggressive cooling measures, (benzos + cooling blanket). Would recommend rechecking liver function in AM. Impression Primary Impression: Suicide attempt by adequate means Qualified Codes: X83.8XXA - Intentional self-harm by other specified means, initial encounter Disposition: ADMITTED INPATIENT Condition: Stable Admissions Decision to Admit Reason: Admit from ER (General) Decision to Admit/Date: Jan 25, 2020 Time/Decision to Admit Time: 20:23 Departure-Patient Inst. Referrals: [facility] (PCP/Family) Primary Care Physician KAMAR MENDENHALL APRN Jan 25, 2020 20:05
[2020-01-25 20:27] LABS: BILIRUBIN,URINE NEGATIVE (NEGATIVE); CLARITY,URINE CLOUDY; COLOR,URINE YELLOW; GLUCOSE, URINE (UA) NEGATIVE (NEGATIVE); KETONES,URINE NEGATIVE (NEGATIVE); LEUKOCYTE ESTERASE ,URINE NEGATIVE (NEGATIVE); NITRITE,URINE POSITIVE (NEGATIVE); PH,URINE 6.5 (5-9); PROTEIN,URINE NEGATIVE (NEGATIVE)
--- NOTE | 2020-01-25 20:30 | NUR ---
Sadie MENDENHALL APRN UPDATED PT MOTHER HECTOR AT THIS TIME ABOUT PLANS FOR ADMIT AND PT CONDITION.
[2020-01-25 20:38] LABS: BASOPHILS % (AUTO) 0 % (0-10); EOSINOPHILS # (AUTO) 0.1 10^3/uL (0.0-0.3); EOSINOPHILS % (AUTO) 1 % (0-10); HEMATOCRIT 46 % (35-52); HEMOGLOBIN 14.6 g/dL (11.5-16.0); LYMPHOCYTES # (AUTO) 2.6 10^3/uL (1.0-4.0); LYMPHOCYTES % (AUTO) 21 % (12-44); MEAN CORPUSCULAR HEMOGLOBIN 32 pg (25-34); MEAN CORPUSCULAR HGB CONC 32 g/dL (32-36); MEAN CORPUSCULAR VOLUME 100 fL (80-99); MEAN PLATELET VOLUME 10.4 fL (9.0-12.2); MONOCYTES # (AUTO) 0.9 10^3/uL (0.0-1.0); MONOCYTES % (AUTO) 7 % (0-12); NEUTROPHILS % (AUTO) 71 % (42-75); PLATELET COUNT 292 10^3/uL (130-400); WHITE BLOOD COUNT 12.7 10^3/uL (4.3-11.0)
[2020-01-25 20:43] LABS: AMPHETAMINE SCREEN, URINE POSITIVE (NEGATIVE); BARBITURATE SCREEN URINE NEGATIVE (NEGATIVE); BENZODIAZEPINES SCREEN URINE NEGATIVE (NEGATIVE); CANNABINOID SCREEN, URINE POSITIVE (NEGATIVE); COCAINE SCREEN URINE NEGATIVE (NEGATIVE); METHADONE STAT NEGATIVE (NEGATIVE); METHAMPHETAMINE SCREEN URINE S NEGATIVE (NEGATIVE); OPIATE SCREEN URINE NEGATIVE (NEGATIVE); OXYCODONE STAT NEGATIVE (NEGATIVE); PROPOXYPHENE STAT NEGATIVE (NEGATIVE); TRICYCLIC ANTIDEPRESSANTS SCRE NEGATIVE (NEGATIVE)
[2020-01-25 20:48] LABS: BACTERIA,URINE LARGE /HPF
[2020-01-25 20:57] LABS: ALANINE AMINOTRANSFERASE 37 U/L (0-55); ALBUMIN 4.8 GM/DL (3.2-4.5); ALKALINE PHOSPHATASE 100 U/L (40-136); BILIRUBIN,TOTAL 0.2 MG/DL (0.1-1.0); BUN/CREATININE RATIO 15; CALCIUM 9.7 MG/DL (8.5-10.1); CARBON DIOXIDE 22 MMOL/L (21-32); CHLORIDE 107 MMOL/L (98-107); CREATININE SERUM 0.85 MG/DL (0.60-1.30); GFR ESTIMATED > 60; GLUCOSE 72 MG/DL (70-105); SALICYLATE < 5.0 MG/DL (5.0-20.0); SODIUM 143 MMOL/L (135-145); TOTAL PROTEIN 7.7 GM/DL (6.4-8.2)
[2020-01-25 21:05] LABS: ACETAMINOPHEN < 10 UG/ML (10-30)
--- NOTE | 2020-01-25 21:43 | NUR ---
PT MOTHER HECTOR CALLED AGAIN FOR UPDATE ON PT. Sadie MENDENHALL APRN UPDATED ON CONDITION, STABLE VITAL SIGNS AND ADMISSION TO ICU.
[2020-01-25] MEDS ORDERED: LACTATED RINGERS 1,000 ML IV ONE (22:20)
[2020-01-25] MEDS ORDERED: APAP 325 MG/10.15 ML LIQ (TYLENOL) UDC PO PRN (23:00)
[2020-01-25] MEDS ORDERED: ACETAMINOPHEN 325 MG TABLET ONE (23:01)
[2020-01-25] MEDS ORDERED: cefTRIAXone 1,000 MG/SWFI 10 ML IV PUSH IV ONE ×2 (23:15)
[2020-01-25] MEDS ORDERED: ONDANSETRON 4 MG/2 ML (SDV) Z0FRAN IV PRN (23:15)
[2020-01-25] MEDS ORDERED: ACETAMINOPHEN 325 MG TABLET PO PRN (23:15)
[2020-01-25] MEDS: LACTATED RINGERS 1,000 ML IV SCH (23:23)
--- NOTE | 2020-01-25 23:43 | NUR ---
PT REPORTS NOT FEELING SUICIDAL AT THIS TIME. SHE IS CRYING AND REMORSEFUL OF ACTIONS. NO HARM CONTRACT SIGNED AND ON THE CHART.
[2020-01-26] VITALS (11 sets, daily range): BP systolic 90–117; BP diastolic 44–65
[2020-01-26 04:06] LABS: BASOPHILS % (AUTO) 0 % (0-10); EOSINOPHILS # (AUTO) 0.2 10^3/uL (0.0-0.3); EOSINOPHILS % (AUTO) 2 % (0-10); HEMATOCRIT 35 % (35-52); HEMOGLOBIN 11.5 g/dL (11.5-16.0); LYMPHOCYTES # (AUTO) 3.6 10^3/uL (1.0-4.0); LYMPHOCYTES % (AUTO) 38 % (12-44); MEAN CORPUSCULAR HEMOGLOBIN 33 pg (25-34); MEAN CORPUSCULAR HGB CONC 33 g/dL (32-36); MEAN CORPUSCULAR VOLUME 100 fL (80-99); MEAN PLATELET VOLUME 10.6 fL (9.0-12.2); MONOCYTES # (AUTO) 0.9 10^3/uL (0.0-1.0); MONOCYTES % (AUTO) 9 % (0-12); NEUTROPHILS # (AUTO) 4.8 10^3/uL (1.8-7.8); NEUTROPHILS % (AUTO) 51 % (42-75); PLATELET COUNT 216 10^3/uL (130-400); WHITE BLOOD COUNT 9.4 10^3/uL (4.3-11.0)
[2020-01-26 04:10] LABS: ALBUMIN 3.5 GM/DL (3.2-4.5); CHLORIDE 109 MMOL/L (98-107); POTASSIUM 3.5 MMOL/L (3.6-5.0); SODIUM 143 MMOL/L (135-145)
[2020-01-26 04:12] LABS: CALCIUM 8.6 MG/DL (8.5-10.1)
[2020-01-26 04:13] LABS: GLUCOSE 77 MG/DL (70-105); TOTAL PROTEIN 5.6 GM/DL (6.4-8.2)
[2020-01-26 04:14] LABS: CARBON DIOXIDE 24 MMOL/L (21-32)
[2020-01-26 04:15] LABS: BILIRUBIN,TOTAL 0.1 MG/DL (0.1-1.0)
[2020-01-26 04:16] LABS: ALKALINE PHOSPHATASE 77 U/L (40-136); PHOSPHORUS 3.7 MG/DL (2.3-4.7)
[2020-01-26 04:17] LABS: CREATININE SERUM 0.74 MG/DL (0.60-1.30); GFR ESTIMATED > 60
[2020-01-26 04:18] LABS: BUN/CREATININE RATIO 12
[2020-01-26 04:19] LABS: ALANINE AMINOTRANSFERASE 31 U/L (0-55)
[2020-01-26 04:20] LABS: MAGNESIUM 1.7 MG/DL (1.6-2.4)
[2020-01-26 04:21] LABS: CREATINE KINASE 39 U/L (29-168)
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
[2020-01-26] MEDS: LACTATED RINGERS 1,000 ML IV SCH ×2 (06:31→15:52)
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
[2020-01-26] MEDS: LORazepam INJ 2 MG/ML (ATIVAN) VIAL IV PRN ×3 (11:36→19:12)
--- NOTE | 2020-01-26 13:00 | NUR ---
AT THIS TIME, PATIENT BECAME AGITATED, THROWING WATER CUP ACROSS ROOM. PATIENT UPSET ABOUT NEEDING PLACEMENT TO INPATIENT BEHAVIORAL UNIT. PATIENT WAS INFORMED THAT AT THIS POINT SHE COULD GO VOLUNTARILY, HOWEVER IF SHE CHOSE NOT TO DO THAT, OR BECAME UNCOOPERATIVE, SHE WOULD THEN HAVE TO HAVE A INVOLUNTARILY PLACEMENT. THIS RN ATTEMPTED TO DISCUSS SITUATION WITH PATIENT ET OFFER SUPPORT. PATIENT STATED HER KIDS ARE YOUNG, SO THEY WOULD BE FIND IF THEY GREW UP WITHOUT THEIR MOTHER.
--- NOTE | 2020-01-26 13:10 | NUR ---
ABBI/SS update: ABBI/SS received call from Alton Ramirez Mental Health Screener. The patient screened in for Voluntary placement; however, became angry stating "I'll just kill myself in here, no one would be able to stop me". She was throwing her cup and stated she wished she was . Alton informed her that if at any time she becomes uncooperative the placement will become involuntary. CM/SS notified Dr. Oliver that patient screened in for placement. ABBI/SS contacted [facility] in [place] and sent referral for placement. Awaiting acceptance/denial.
--- NOTE | 2020-01-26 16:09 | NUR ---
ABBI/CHUY finalized discharge. Plan: Patient will discharge to [facility] in [place], [place]. The bed number is 8114. The accepting physician is Dr. Ballesteros. ABBI/CHUY contacted the patient's nurse Petrona to give an update on Plan. She verbalized understanding and will inform the patient of acceptance. ABBI/CHUY provided the nursing report number [phone]. ABBI/CHUY explained the process if patient changes to involuntary. ABBI/CHUY contacted Joann with [facility]. He reports he will be able to transport patient around 7:30 p.m. today. ABBI/CHUY informed the patient's nurse of time. She will inform [facility] during report.
--- NOTE | 2020-01-26 18:57 | NUR ---
PATIENT CALLED THIS RN INTO ROOM AT THIS TIME, RN ENTERED ROOM, PATIENT TEARFUL. STATING SHE DOESNT WANT TO GO TO THE INPATIENT REHAB. THIS NURSE EXPLAINED THAT IF SHE IS REFUSING TO GO, SHE WILL HAVE TO GO INVOLUNTARILY. PATIENT BECAME MORE UPSET, STATING "SEE NOW YOUR GOING TO ACT LIKE THE REST OF THEM NOW TOO", THIS NURSE ASSURED HER, WE ARE JUST WANTING THE BEST. WE WANT TO HELP HER. PATIENT SAID CANT A PERSON JUST IF THEY WANT TO . PATIENT STATED SHE HAD NEVER BEEN AWAY FROM HER KIDS BEFORE. THIS NURSE TALKED TO PATIENT ABOUT HER CHILDREN FOR A MINUTE. PATIENT THEN STATED SHE WANTED MEDICATION FOR ANXIETY. WHEN THIS NURSE EXITED ROOM, PATIENT LET OUT A SCREAM, ET THREW BEDSIDE TABLE ACROSS ROOM.
--- NOTE | 2020-01-26 19:42 | NUR ---
patient left facility voluntarily with secure transport to [facility] behavioral unit. Patient mother called about belongings left at facility for her to mushroom picker at a later time.
== END 2020-01-26 19:46 | disposition designated cancer center or children's hospital (05) ==
LOC: EDUNIT# 19:51 → ER 19:51 → ICU 20:54 → UNDOADMOB 20:54
PROVIDERS: ADMIT Internal Medicine; ATTEND Internal Medicine
DX: T43.622A Poisoning by amphetamines, intentional self-harm, initial encounter (principal); T14.91XA Suicide attempt, initial encounter; F41.9 Anxiety disorder, unspecified; F32.9 Major depressive disorder, single episode, unspecified; E87.6 Hypokalemia; R19.07 Generalized intra-abdominal and pelvic swelling, mass and lump; F17.210 Nicotine dependence, cigarettes, uncomplicated; Z79.899 Other long term (current) drug therapy; Z20.828 Contact with and (suspected) exposure to other viral communicable diseases; X83.8XXA Intentional self-harm by other specified means, initial encounter; Z83.3 Family history of diabetes mellitus; Z82.49 Family history of ischemic heart disease and other diseases of the circulatory system
CPT/HCPCS: 80053 ×2; 80306; 81000; 82550; 83735; 84100; 85025 ×2; 87077; 87088; 87186; 93005; 96360; 99285; G0378; G0480 ×3; U0002; 36415; 80320; 80329; 87635

== ENCOUNTER 2021-02-23 18:12 | Emergency (ER) | payer MEDICAID ==
[~2021-02-23] VITALS: Ht 160 cm; Wt 68.0 kg
[2021-02-23 19:15] LABS: BASOPHILS # (AUTO) 0.1 10^3/uL (0.0-0.1); BASOPHILS % (AUTO) 1 % (0-10); EOSINOPHILS # (AUTO) 0.1 10^3/uL (0.0-0.3); EOSINOPHILS % (AUTO) 1 % (0-10); HEMATOCRIT 42 % (35-52); HEMOGLOBIN 14.1 g/dL (11.5-16.0); LYMPHOCYTES % (AUTO) 22 % (12-44); MEAN CORPUSCULAR HEMOGLOBIN 35 pg (25-34); MEAN CORPUSCULAR HGB CONC 34 g/dL (32-36); MEAN CORPUSCULAR VOLUME 103 fL (80-99); MEAN PLATELET VOLUME 9.4 fL (9.0-12.2); MONOCYTES # (AUTO) 0.9 10^3/uL (0.0-1.0); MONOCYTES % (AUTO) 9 % (0-12); NEUTROPHILS # (AUTO) 6.1 10^3/uL (1.8-7.8); NEUTROPHILS % (AUTO) 66 % (42-75); PLATELET COUNT 269 10^3/uL (130-400); WHITE BLOOD COUNT 9.2 10^3/uL (4.3-11.0)
[2021-02-23] MEDS ORDERED: fentaNYL INJ 100 MCG/2 ML AMP IVP ONE (19:15)
[2021-02-23] MEDS ORDERED: ONDANSETRON 4 MG/2 ML (SDV) Z0FRAN IVP ONE (19:15)
[2021-02-23] MEDS ORDERED: NS IV 1000 ML 1,000 ML IV SCH (19:15)
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
[2021-02-23 19:29] LABS: ALANINE AMINOTRANSFERASE 32 U/L (0-55); ALBUMIN 4.3 GM/DL (3.2-4.5); ALKALINE PHOSPHATASE 93 U/L (40-136); BILIRUBIN,TOTAL 0.3 MG/DL (0.1-1.0); BUN/CREATININE RATIO 13; CALCIUM 8.7 MG/DL (8.5-10.1); CARBON DIOXIDE 22 MMOL/L (21-32); CHLORIDE 110 MMOL/L (98-107); CREATININE SERUM 0.77 MG/DL (0.60-1.30); GFR ESTIMATED 91; GLUCOSE 84 MG/DL (70-105); POTASSIUM 3.9 MMOL/L (3.6-5.0); SALICYLATE < 5.0 MG/DL (5.0-20.0); SODIUM 145 MMOL/L (135-145)
[2021-02-23 19:39] LABS: ACETAMINOPHEN < 10 UG/ML (10-30)
[2021-02-23] MEDS ORDERED: NS 100 ML (IVPB) BAG IV ONE (20:00)
[2021-02-23] MEDS ORDERED: IOHEXOL 350 MG/ML 100 ML (OMNIPAQUE 350) VIAL IV ONE (20:00)
[2021-02-23] MEDS ORDERED: HOLD METFORMIN - RECEIVED CONTRAST 20 ML VIAL IV SCH (20:00)
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
[2021-02-23 20:55] LABS: BILIRUBIN,URINE NEGATIVE (NEGATIVE); CLARITY,URINE CLEAR; COLOR,URINE YELLOW; GLUCOSE, URINE (UA) NEGATIVE (NEGATIVE); KETONES,URINE NEGATIVE (NEGATIVE); LEUKOCYTE ESTERASE ,URINE NEGATIVE (NEGATIVE); NITRITE,URINE NEGATIVE (NEGATIVE); PROTEIN,URINE NEGATIVE (NEGATIVE)
[2021-02-23] MEDS ORDERED: KETOROLAC 30 MG/ML VIAL IVP ONE (21:00)
[2021-02-23 21:02] LABS: BACTERIA,URINE TRACE /HPF; WBC,URINE 0-2 /HPF
[2021-02-24 01:23] VITALS: BP 127/84
== END 2021-02-23 21:00 | disposition home or self-care (01) ==
LOC: EDUNIT# 18:12 → ER 18:14
DX: R10.31 Right lower quadrant pain (principal); R31.9 Hematuria, unspecified; F10.129 Alcohol abuse with intoxication, unspecified; F32.9 Major depressive disorder, single episode, unspecified; F17.210 Nicotine dependence, cigarettes, uncomplicated
CPT/HCPCS: 71045; 71260; 74177; 80053; 81000; 84703; 85025; 99284; G0480 ×3; 36415; 80320; 80329

== ENCOUNTER 2021-03-08 16:28 | Emergency (ER) | payer MEDICAID ==
[~2021-03-08] VITALS: Ht 162 cm; Wt 68.0 kg
[2021-03-08] MEDS ORDERED: hydrOXYzine (VISTARIL/ATARAX) 25 MG capsule/tablet PO ONE (16:45)
[2021-03-08] MEDS ORDERED: FOLIC ACID 1 MG TAB PO ONE (17:00)
[2021-03-08] MEDS ORDERED: LACTATED RINGERS 1,000 ML IV ONE (17:00)
[2021-03-08] MEDS ORDERED: THIAMINE 100 MG (VITAMIN B-1) TAB PO ONE (17:00)
--- NOTE | 2021-03-08 17:05 | ED Psychosocial ---
General Chief Complaint: Detox Stated Complaint: DETOX Nursing Triage Note: ARRIVED VIA AMB TO ROOM 03 ET STATES SHE WANTS DETOXED OFF OF WHISKY. HAS ATTEMPTED TO BE SEEN IN [facility], AND [facility]. Source: patient Exam Limitations: no limitations History of Present Illness Date Seen by Provider: Mar 08, 2021 Time Seen by Provider: 16:46 Initial Comments Patient presents ER by private conveyance from home with her significant other and chief complaint that she has been drinking whiskey daily a pint or more a day for the last several months. 2 days ago she decided to stop cold turkey and started having high blood pressure chest pain shortness of air nausea shakes so about 2 hours prior to arrival she took another pint of whiskey to try and quell the symptoms. She says in the past she is try to detox and had seizures related to that. She has no primary care provider but does follow at [facility] for behavioral health and takes lithium, and other mood related medicines. She presented to [facility] and they did not have any beds. She went to [facility] and they would not take her insurance. She called her providers and they said it would take too long to help her outpatient and recommend she come to the ER to be admitted. Patient has been inpatient for psychiatric reasons for a suicide attempt years ago. She denies being suicidal or homicidal at this time. Last use of methamphetamines was many months ago. She says she took a Zofran tablet that was prescribed to her and it did quell her nausea about 30 minutes prior to arrival. She states she is on Carafate for acid reflux but is not having any GERD symptoms at the moment. Allergies and Home Medications Allergies Coded Allergies: No Known Drug Allergies (Unverified , 10/03/17) Patient Home Medication List Home Medication List Reviewed: Yes No Active Prescriptions or Reported Meds Review of Systems Constitutional: No chills, No diaphoresis EENTM: No ear discharge, No ear pain Respiratory: No cough, No short of breath Cardiovascular: No chest pain, No edema Gastrointestinal: No abdominal pain, No nausea, No vomiting Genitourinary: No discharge, No dysuria Musculoskeletal: No back pain, No joint pain Skin: No pruritus, No rash All Other Systems Reviewed Negative Unless Noted: Yes Past Ysotbio-Yyixne-Agjajt Hx Patient Social History Tobacco Use?: Yes Smoking Status: Current Everyday Smoker Use of E-Cig and/or Vaping dev: No Substance use?: No Alcohol Use?: Yes Alcohol type: Hard Liquor Alcohol Frequency: Daily Immunizations Up To Date Tetanus Booster (TDap): Unknown First/Initial COVID19 Vaccinat: DOESNT KNOW Second COVID19 Vaccination Agusto: 12/10 COVID19 Vaccine Horse Race Timer: MODERNMisa Seasonal Allergies Seasonal Allergies: No Past Medical History Surgeries: Yes (PILONIDAL CYST REMOVAL X 3, wisdom teeth) Section, Gallbladder, Tonsillectomy, Tubal Ligation Respiratory: No Cardiac: Yes (DIZZINESS AND SYNCOPE FOR YEARS) Syncope Neurological: No Reproductive Disorders: No Female Reproductive Disorders: Denies MANAGER GAME History: Tubal Ligation Sexually Transmitted Disease: No Genitourinary: No Gastrointestinal: Yes (S/P CHOLECYSTECTOMY) Gall Bladder Disease Musculoskeletal: No Endocrine: No HEENT: Yes (S/P TONSILLECTOMY) Tonsilitis Cancer: No Psychosocial: Yes (OFF MEDICATION, sees a doc from [facility]) Anxiety, Depression Integumentary: Yes (evolving darkening mole on abdomen) Blood Disorders: No Adverse Reaction/Blood Tranf: No Family Medical History Family history: Diabetes mellitus 19 FATHER, Onset:Unknown grandfather, Onset:Unknown Family history: Hypertension grandmother, Onset:Unknown No Pertinent Family Hx, Heart Disease, Diabetes, Other Conditions/Hx Physical Exam Vital Signs - First Documented 03/08/21 16:35 Temp 36.3 Pulse 110 Resp 16 B/P (MAP) 142/95 (111) Pulse Ox 98 O2 Delivery Room Air Capillary Refill : Less Than 3 Seconds Height, Weight, BMI Height: 5'4.00" Weight: 115lbs. 0.0oz. 52.174377zp; 25.00 BMI Method:Stated General Appearance: WD/WN, moderate distress HEENT: PERRL/EOMI, normal ENT inspection; No pharynx normal (Dry oral mucosa) Neck: supple, normal inspection Respiratory: lungs clear, normal breath sounds, no respiratory distress, no accessory muscle use Cardiovascular: normal peripheral pulses, regular rate, rhythm Peripheral Pulses: 2+ Radial Pulses (R), 2+ Radial Pulses (L) Gastrointestinal: non tender, soft Neurologic/Psychiatric: alert, oriented x 3, other (Anxious nearly tearful affect) Appearance/Memory: appropriate insight, disheveled Behavior/Eye Contact: cooperative, good eye contact, normal speech Thoughts/Hallucinations: normal thought pattern, no apparent hallucination Skin: normal color, warm/dry Progress/Results/Core Measures Results/Orders Lab Results Laboratory Tests Test 03/08/21 16:56 03/08/21 17:20 Range/Units Urine Color YELLOW Urine Clarity CLEAR Urine pH 7.5 5-9 Urine Specific Melissa 1.010 L 1.016-1.022 Urine Protein NEGATIVE NEGATIVE Urine Glucose (UA) NEGATIVE NEGATIVE Urine Ketones NEGATIVE NEGATIVE Urine Nitrite NEGATIVE NEGATIVE Urine Bilirubin NEGATIVE NEGATIVE Urine Urobilinogen 0.2 < = 1.0 MG/DL Urine Leukocyte Esterase NEGATIVE NEGATIVE Urine RBC (Auto) NEGATIVE NEGATIVE Urine RBC NONE /HPF Urine WBC NONE /HPF Urine Squamous Epithelial Cells RARE /HPF Urine Crystals NONE /LPF Urine Bacteria NEGATIVE /HPF Urine Casts NONE /LPF Urine Mucus NEGATIVE /LPF Urine Culture Indicated NO Urine Opiates Screen NEGATIVE NEGATIVE Urine Oxycodone Screen NEGATIVE NEGATIVE Urine Methadone Screen NEGATIVE NEGATIVE Urine Propoxyphene Screen NEGATIVE NEGATIVE Urine Barbiturates Screen NEGATIVE NEGATIVE Ur Tricyclic Antidepressants Screen NEGATIVE NEGATIVE Urine Phencyclidine Screen NEGATIVE NEGATIVE Urine Amphetamines Screen NEGATIVE NEGATIVE Urine Methamphetamines Screen NEGATIVE NEGATIVE Urine Benzodiazepines Screen POSITIVE H NEGATIVE Urine Cocaine Screen NEGATIVE NEGATIVE Urine Cannabinoids Screen POSITIVE H NEGATIVE White Blood Count 8.4 4.3-11.0 10^3/uL Red Blood Count 3.48 L 3.80-5.11 10^6/uL Hemoglobin 12.3 11.5-16.0 g/dL Hematocrit 36 35-52 % Mean Corpuscular Volume 104 H 80-99 fL Mean Corpuscular Hemoglobin 35 H 25-34 pg Mean Corpuscular Hemoglobin Concent 34 32-36 g/dL Red Cell Distribution Width 13.9 10.0-14.5 % Platelet Count 287 130-400 10^3/uL Mean Platelet Volume 9.3 9.0-12.2 fL Immature Granulocyte % (Auto) 0 % Neutrophils (%) (Auto) 67 42-75 % Lymphocytes (%) (Auto) 22 12-44 % Monocytes (%) (Auto) 9 0-12 % Eosinophils (%) (Auto) 1 0-10 % Basophils (%) (Auto) 0 0-10 % Neutrophils # (Auto) 5.7 1.8-7.8 10^3/uL Lymphocytes # (Auto) 1.9 1.0-4.0 10^3/uL Monocytes # (Auto) 0.8 0.0-1.0 10^3/uL Eosinophils # (Auto) 0.0 0.0-0.3 10^3/uL Basophils # (Auto) 0.0 0.0-0.1 10^3/uL Immature Granulocyte # (Auto) 0.0 0.0-0.1 10^3/uL Sodium Level 142 135-145 MMOL/L Potassium Level 3.4 L 3.6-5.0 MMOL/L Chloride Level 106 98-107 MMOL/L Carbon Dioxide Level 22 21-32 MMOL/L Anion Gap 14 5-14 MMOL/L Blood Urea Nitrogen 11 7-18 MG/DL Creatinine 0.71 0.60-1.30 MG/DL Estimat Glomerular Filtration Rate 100 BUN/Creatinine Ratio 15 Glucose Level 112 H 70-105 MG/DL Calcium Level 8.5 8.5-10.1 MG/DL Corrected Calcium 8.6 8.5-10.1 MG/DL Total Bilirubin 0.3 0.1-1.0 MG/DL Aspartate Amino Transf (AST/SGOT) 30 5-34 U/L Alanine Aminotransferase (ALT/SGPT) 48 0-55 U/L Alkaline Phosphatase 94 40-136 U/L Total Protein 6.2 L 6.4-8.2 GM/DL Albumin 3.9 3.2-4.5 GM/DL Salicylates Level < 5.0 L 5.0-20.0 MG/DL Acetaminophen Level < 10 L 10-30 UG/ML Serum Alcohol 157 H <10 MG/DL My Orders Orders - SEBASTIAN LUZ Hydroxyzine Cap/Tab (Vistaril) (03/08/21 16:45) Ua Culture If Indicated (03/08/21 16:59) Cbc With Automated Diff (03/08/21 16:59) Comprehensive Metabolic Panel (03/08/21 16:59) Alcohol (03/08/21 16:59) Drug Screen Stat (Urine) (03/08/21 16:59) Acetaminophen (03/08/21 16:59) Salicylate (03/08/21 16:59) Ekg Tracing (03/08/21 16:59) Ed Iv/Invasive Line Start (03/08/21 16:59) Monitor-Rhythm Ecg Trace Only (03/08/21 16:59) Ed Iv/Invasive Line Start (03/08/21 16:59) Lactated Ringers (Lr 1000 Ml Iv Solution (03/08/21 17:00) Urine Bedside (03/08/21 16:59) Thiamine Tablet (Vitamin B-1 Tablet) (03/08/21 17:00) Folic Acid Tablet (Folic Acid Tablet) (03/08/21 17:00) Medications Given in ED Current Medications Medications Dose Ordered Sig/Concha Route Start Time Stop Time Status Last Admin Dose Admin Folic Acid 1 mg ONCE ONCE PO 03/08/21 17:00 03/08/21 17:01 DC 03/08/21 17:18 1 MG Lactated Ringer's 1,000 ml @ 0 mls/hr Q0M ONCE IV 03/08/21 17:00 03/08/21 17:01 DC 03/08/21 17:18 1,000 MLS/HR Thiamine HCl 100 mg ONCE ONCE PO 03/08/21 17:00 03/08/21 17:01 DC 03/08/21 17:19 100 MG Vital Signs/I&O 03/08/21 16:35 Temp 36.3 Pulse 110 Resp 16 B/P (MAP) 142/95 (111) Pulse Ox 98 O2 Delivery Room Air Blood Pressure Mean: 111 Progress Progress Note #1: Time: 17:05 Progress Note Plan to give her a liter of fluids, thiamine, folate, check some labs including an alcohol level, urine drug screen and urine . She says she had her tubes tied. Progress Note #2: Time: 17:53 Progress Note Discussed the case with inpatient medicine, Dr. Oliver and we do not have enough available beds. Patient has been provided with a prescription for Ativan and instructions to follow-up with [facility] for outpatient management of alcohol detox. Left a message with Dr. Venegas, [facility]. 1800: Discussed the case with Dr. Venegas and she recommends that we load her with some Ativan tonight give her some Ativan to go and have her call Sulema at [facility] first thing in the morning so they can set her up for outpatient therapy while they are working on getting her to inpatient. Initial ECG Impression Date: Mar 08, 2021 Initial ECG Impression Time: 17:09 Initial ECG Rate: 99 Initial ECG Rhythm: Normal Sinus Initial ECG Intervals: Normal Initial ECG Impression: Normal Comment Normal sinus rhythm without clinically relevant ST elevation or depression Departure Impression Primary Impression: Alcohol abuse Disposition: 01 HOME, SELF-CARE Condition: Stable Departure-Patient Inst. Decision time for Depature: 18:09 Referrals: [facility] (PCP/Family) Primary Care Physician Patient Instructions: Alcohol Use Disorder (DC) Add. Discharge Instructions: Tomorrow morning after 8:00 AM please call [facility] of the number listed below. Ask for [facility] at [facility]. She can help you navigate outpatient alcohol detox. Ativan 1 or 2 tablets every 6 hours as necessary for symptoms of detox such as nausea, chills, body aches, stomachache, craving alcohol. Zofran 1 tablet every 6 hours as necessary for nausea under the tongue. Drink plenty of water. Return to the ER for insufficient control of your symptoms. All discharge instructions reviewed with patient and/or family. Voiced understanding. Scripts Ondansetron (Ondansetron Odt) 4 Mg Tab.rapdis 4 MG PO Q6H PRN for NAUSEA/VOMITING, #12 TAB 0 Refills Prov: SEBASTIAN LUZ 03/08/21 Lorazepam (Ativan) 1 Mg Tablet 1-2 MG PO Q6H PRN for etoh WD for 7 Days, #20 TAB 0 Refills Prov: SEBASTIAN LUZ 03/08/21 Copy Copies To 1: ARY VENEGAS TITUS J Mar 08, 2021 17:05
[2021-03-08 17:27] LABS: BASOPHILS % (AUTO) 0 % (0-10); EOSINOPHILS % (AUTO) 1 % (0-10); HEMATOCRIT 36 % (35-52); HEMOGLOBIN 12.3 g/dL (11.5-16.0); LYMPHOCYTES # (AUTO) 1.9 10^3/uL (1.0-4.0); LYMPHOCYTES % (AUTO) 22 % (12-44); MEAN CORPUSCULAR HEMOGLOBIN 35 pg (25-34); MEAN CORPUSCULAR HGB CONC 34 g/dL (32-36); MEAN CORPUSCULAR VOLUME 104 fL (80-99); MEAN PLATELET VOLUME 9.3 fL (9.0-12.2); MONOCYTES # (AUTO) 0.8 10^3/uL (0.0-1.0); MONOCYTES % (AUTO) 9 % (0-12); NEUTROPHILS # (AUTO) 5.7 10^3/uL (1.8-7.8); NEUTROPHILS % (AUTO) 67 % (42-75); PLATELET COUNT 287 10^3/uL (130-400); WHITE BLOOD COUNT 8.4 10^3/uL (4.3-11.0)
[2021-03-08 17:31] LABS: BILIRUBIN,URINE NEGATIVE (NEGATIVE); CLARITY,URINE CLEAR; COLOR,URINE YELLOW; GLUCOSE, URINE (UA) NEGATIVE (NEGATIVE); KETONES,URINE NEGATIVE (NEGATIVE); LEUKOCYTE ESTERASE ,URINE NEGATIVE (NEGATIVE); NITRITE,URINE NEGATIVE (NEGATIVE); PH,URINE 7.5 (5-9); PROTEIN,URINE NEGATIVE (NEGATIVE)
[2021-03-08 17:35] LABS: ALBUMIN 3.9 GM/DL (3.2-4.5); CHLORIDE 106 MMOL/L (98-107); POTASSIUM 3.4 MMOL/L (3.6-5.0); SODIUM 142 MMOL/L (135-145)
[2021-03-08 17:36] LABS: BACTERIA,URINE NEGATIVE /HPF; SQUAMOUS EPITHELIAL CELL,UR RARE /HPF
[2021-03-08 17:37] LABS: CALCIUM 8.5 MG/DL (8.5-10.1)
[2021-03-08 17:38] LABS: GLUCOSE 112 MG/DL (70-105); TOTAL PROTEIN 6.2 GM/DL (6.4-8.2)
[2021-03-08 17:39] LABS: BILIRUBIN,TOTAL 0.3 MG/DL (0.1-1.0); CARBON DIOXIDE 22 MMOL/L (21-32)
[2021-03-08 17:41] LABS: ALKALINE PHOSPHATASE 94 U/L (40-136); CREATININE SERUM 0.71 MG/DL (0.60-1.30); GFR ESTIMATED 100
[2021-03-08 17:42] LABS: AMPHETAMINE SCREEN, URINE NEGATIVE (NEGATIVE); BENZODIAZEPINES SCREEN URINE POSITIVE (NEGATIVE); COCAINE SCREEN URINE NEGATIVE (NEGATIVE)
[2021-03-08 17:43] LABS: ACETAMINOPHEN < 10 UG/ML (10-30); BUN/CREATININE RATIO 15
[2021-03-08 17:43] LABS: BARBITURATE SCREEN URINE NEGATIVE (NEGATIVE); CANNABINOID SCREEN, URINE POSITIVE (NEGATIVE); METHADONE STAT NEGATIVE (NEGATIVE); METHAMPHETAMINE SCREEN URINE S NEGATIVE (NEGATIVE); OPIATE SCREEN URINE NEGATIVE (NEGATIVE); OXYCODONE STAT NEGATIVE (NEGATIVE); PROPOXYPHENE STAT NEGATIVE (NEGATIVE); TRICYCLIC ANTIDEPRESSANTS SCRE NEGATIVE (NEGATIVE)
[2021-03-08 17:44] LABS: SALICYLATE < 5.0 MG/DL (5.0-20.0)
[2021-03-08 17:45] LABS: ALANINE AMINOTRANSFERASE 48 U/L (0-55)
[2021-03-08] MEDS ORDERED: LORA-405 PO ×2 (18:13→19:03)
[2021-03-08] MEDS ORDERED: ONDA4TAB11 PO (18:13)
[2021-03-08] MEDS ORDERED: LORazepam 0.5 MG (ATIVAN) TABLET PO STA (18:15)
[2021-03-08 18:25] VITALS: BP 143/99
[2021-03-08] MEDS ORDERED: ONDA4TAB11 SL (19:03)
== END 2021-03-08 18:25 | disposition home or self-care (01) ==
LOC: EDUNIT# 16:28 → ER 16:29
DX: F10.10 Alcohol abuse, uncomplicated (principal); F17.290 Nicotine dependence, other tobacco product, uncomplicated
CPT/HCPCS: 80053; 80306; 81000; 84703; 85025; 93005; 93041; 99284; G0480 ×3; 36415; 80320; 80329

== ENCOUNTER 2021-03-09 18:40 | Inpatient (IN) | payer MEDICAID ==
[~2021-03-09] VITALS: Ht 162.5 cm; Wt 68.0 kg
[~2021-03-09 18:40] MED LIST changes: +LORA-405 PO; +ONDA4TAB11 PO; +ONDA4TAB11 SL
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
[2021-03-09 19:45] LABS: BASOPHILS # (AUTO) 0.1 10^3/uL (0.0-0.1); BASOPHILS % (AUTO) 1 % (0-10); EOSINOPHILS # (AUTO) 0.1 10^3/uL (0.0-0.3); EOSINOPHILS % (AUTO) 1 % (0-10); HEMATOCRIT 41 % (35-52); HEMOGLOBIN 13.8 g/dL (11.5-16.0); LYMPHOCYTES # (AUTO) 2.8 10^3/uL (1.0-4.0); LYMPHOCYTES % (AUTO) 35 % (12-44); MEAN CORPUSCULAR HEMOGLOBIN 36 pg (25-34); MEAN CORPUSCULAR HGB CONC 34 g/dL (32-36); MEAN CORPUSCULAR VOLUME 105 fL (80-99); MEAN PLATELET VOLUME 9.5 fL (9.0-12.2); MONOCYTES # (AUTO) 0.5 10^3/uL (0.0-1.0); MONOCYTES % (AUTO) 6 % (0-12); NEUTROPHILS # (AUTO) 4.6 10^3/uL (1.8-7.8); NEUTROPHILS % (AUTO) 57 % (42-75); PLATELET COUNT 299 10^3/uL (130-400)
[2021-03-09 19:52] LABS: PROTHROMBIN TIME PATIENT 13.2 SEC (12.2-14.7)
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
[2021-03-09] MEDS ORDERED: TETANUS,DIPTH,PERTUSS P/F (BOOSTRIX) 0.5 ML VIAL IM ONE (20:15)
[2021-03-09 20:22] LABS: ALBUMIN 4.3 GM/DL (3.2-4.5); BILIRUBIN,TOTAL 0.5 MG/DL (0.1-1.0); CALCIUM 9.2 MG/DL (8.5-10.1); CREATININE SERUM 0.75 MG/DL (0.60-1.30); POTASSIUM 3.7 MMOL/L (3.6-5.0); TOTAL PROTEIN 7.6 GM/DL (6.4-8.2)
[2021-03-09] MEDS ORDERED: ANTACID SUSP 30 ML UDC (MYLANTA) PO PRN (21:15)
[2021-03-09] MEDS ORDERED: ONDANSETRON 4 MG/2 ML (SDV) Z0FRAN IV PRN (21:15)
[2021-03-09] MEDS ORDERED: ONDANSETRON 4 MG (ZOFRAN) ORAL DISSOLVE TAB PO PRN (21:15)
[2021-03-09] MEDS ORDERED: LORazepam INJ 2 MG/ML (ATIVAN) VIAL IM/IV PRN (21:15)
[2021-03-09] MEDS ORDERED: ONDANSETRON 4 MG (ZOFRAN) ORAL DISSOLVE TAB SL PRN (21:15)
[2021-03-09] MEDS ORDERED: D5 1/2 NS 1000 ML IV SOLUTION 1,000 ML IV PRN (21:15)
[2021-03-09] MEDS ORDERED: SENNA W/DOCUSATE (SENOKOT S) TABLET PO PRN (21:15)
[2021-03-09] MEDS ORDERED: 1/2 NS IV SOLUTION 1,000 ML IV PRN (21:15)
[2021-03-09] MEDS ORDERED: LORazepam 1 MG (ATIVAN) TAB ONE (21:29)
[2021-03-09] MEDS: LORazepam 1 MG (ATIVAN) TAB PO PRN ×2 (21:32→22:54)
[2021-03-09] MEDS ORDERED: IBUPROFEN TABLET 200 MG TAB PO ONE (21:46)
[2021-03-09] MEDS: IBUPROFEN TABLET 200 MG TAB PO PRN (21:49)
[2021-03-09 21:51] VITALS: BP 118/80
[2021-03-09] MEDS: ENOXAPARIN 40 MG/0.4 ML (LOVENOX) SYR SC SCH (22:06)
[2021-03-10 00:21] VITALS: BP 95/50
[2021-03-10] MEDS: LORazepam 1 MG (ATIVAN) TAB PO PRN ×7 (03:31→22:37)
[2021-03-10 03:41] VITALS: BP 99/55
[2021-03-10] MEDS: PANTOPRAZOLE 40 MG (PROTONIX) TAB PO SCH (05:41)
[2021-03-10 06:42] LABS: BASOPHILS % (AUTO) 1 % (0-10); EOSINOPHILS # (AUTO) 0.1 10^3/uL (0.0-0.3); EOSINOPHILS % (AUTO) 1 % (0-10); HEMATOCRIT 36 % (35-52); HEMOGLOBIN 12.1 g/dL (11.5-16.0); LYMPHOCYTES # (AUTO) 1.9 10^3/uL (1.0-4.0); LYMPHOCYTES % (AUTO) 34 % (12-44); MEAN CORPUSCULAR HEMOGLOBIN 36 pg (25-34); MEAN CORPUSCULAR HGB CONC 34 g/dL (32-36); MEAN CORPUSCULAR VOLUME 107 fL (80-99); MEAN PLATELET VOLUME 10.2 fL (9.0-12.2); MONOCYTES # (AUTO) 0.6 10^3/uL (0.0-1.0); MONOCYTES % (AUTO) 11 % (0-12); NEUTROPHILS % (AUTO) 53 % (42-75); PLATELET COUNT 225 10^3/uL (130-400); WHITE BLOOD COUNT 5.7 10^3/uL (4.3-11.0)
[2021-03-10 07:06] LABS: ALBUMIN 3.3 GM/DL (3.2-4.5); BILIRUBIN,TOTAL 0.4 MG/DL (0.1-1.0); CALCIUM 8.1 MG/DL (8.5-10.1); CREATININE SERUM 0.74 MG/DL (0.60-1.30); TOTAL PROTEIN 5.6 GM/DL (6.4-8.2)
[2021-03-10] MEDS ORDERED: FLU QUADRIvalent (3YOA+) 60 mcg/0.5 ml 2021-22(AFLURIA) IM ONE (07:30)
[2021-03-10 08:12] VITALS: BP 124/76
[2021-03-10] MEDS: polyethylene glycoL POWDER 17 GM (MIRALAX) PACK PO SCH ×2 (08:53→19:48)
[2021-03-10] MEDS: SENNA W/DOCUSATE (SENOKOT S) TABLET PO SCH (08:53)
[2021-03-10] MEDS: ALPRAZolam 0.25 MG (XANAX) TAB PO PRN ×2 (09:30→17:27)
[2021-03-10] MEDS: THIAMINE INJECTION 100 MG, FOLIC ACID INJECTION 1 MG, MAGNESIUM SULFATE 2 GM, VITAMIN M... IV SCH ×5 (09:48)
[2021-03-10] MEDS ORDERED: PRAZ2CAP2 PO (10:01)
[2021-03-10] MEDS ORDERED: MIRT-68 PO (10:01)
[2021-03-10] MEDS ORDERED: ONDA4TAB11 PO (10:01)
[2021-03-10] MEDS ORDERED: LITH300T PO (10:01)
[2021-03-10] MEDS ORDERED: SUCR1TAB PO (10:01)
[2021-03-10] MEDS ORDERED: QUET100T33 PO (10:01)
[2021-03-10] MEDS ORDERED: QUET25TA35 PO (10:04)
[2021-03-10] MEDS ORDERED: ACET-2267 PO (10:19)
[2021-03-10] MEDS ORDERED: MELA1TAB20 PO (10:20)
[2021-03-10] MEDS: IBUPROFEN TABLET 200 MG TAB PO PRN ×2 (11:07→16:49)
[2021-03-10] MEDS: ONDANSETRON 4 MG/2 ML (SDV) Z0FRAN IV PRN (11:07)
[2021-03-10 11:54] VITALS: BP 119/77
[2021-03-10] MEDS: DICLOFENAC 1% GEL 100 GM (VOLTAREN) TUBE TOP SCH ×3 (13:02→19:48)
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
[2021-03-10 16:00] VITALS: BP 111/61
[2021-03-10 19:39] VITALS: BP 129/86
[2021-03-10] MEDS: ENOXAPARIN 40 MG/0.4 ML (LOVENOX) SYR SC SCH (20:17)
[2021-03-11] VITALS: BP 105/56
[2021-03-11 04:00] VITALS: BP 101/60
[2021-03-11] MEDS: PANTOPRAZOLE 40 MG (PROTONIX) TAB PO SCH (05:13)
[2021-03-11] MEDS: LORazepam 1 MG (ATIVAN) TAB PO PRN ×6 (05:13→17:26)
[2021-03-11 05:15] LABS: BASOPHILS % (AUTO) 1 % (0-10); EOSINOPHILS # (AUTO) 0.1 10^3/uL (0.0-0.3); EOSINOPHILS % (AUTO) 1 % (0-10); HEMATOCRIT 34 % (35-52); HEMOGLOBIN 11.4 g/dL (11.5-16.0); LYMPHOCYTES % (AUTO) 33 % (12-44); MEAN CORPUSCULAR HEMOGLOBIN 35 pg (25-34); MEAN CORPUSCULAR HGB CONC 33 g/dL (32-36); MEAN CORPUSCULAR VOLUME 105 fL (80-99); MEAN PLATELET VOLUME 9.8 fL (9.0-12.2); MONOCYTES # (AUTO) 0.6 10^3/uL (0.0-1.0); MONOCYTES % (AUTO) 10 % (0-12); NEUTROPHILS # (AUTO) 3.3 10^3/uL (1.8-7.8); NEUTROPHILS % (AUTO) 56 % (42-75); PLATELET COUNT 211 10^3/uL (130-400)
[2021-03-11 05:30] LABS: ALBUMIN 3.2 GM/DL (3.2-4.5); POTASSIUM 4.2 MMOL/L (3.6-5.0)
[2021-03-11 05:33] LABS: TOTAL PROTEIN 5.2 GM/DL (6.4-8.2)
[2021-03-11 05:35] LABS: BILIRUBIN,TOTAL 0.3 MG/DL (0.1-1.0)
[2021-03-11 05:36] LABS: CREATININE SERUM 0.77 MG/DL (0.60-1.30)
[2021-03-11 07:49] VITALS: BP 106/72
[2021-03-11] MEDS: ONDANSETRON 4 MG/2 ML (SDV) Z0FRAN IV PRN (08:32)
[2021-03-11] MEDS: IBUPROFEN TABLET 200 MG TAB PO PRN ×3 (08:33→22:44)
[2021-03-11] MEDS: polyethylene glycoL POWDER 17 GM (MIRALAX) PACK PO SCH ×2 (08:38→22:44)
[2021-03-11] MEDS: SENNA W/DOCUSATE (SENOKOT S) TABLET PO SCH (08:39)
[2021-03-11] MEDS: DICLOFENAC 1% GEL 100 GM (VOLTAREN) TUBE TOP SCH ×4 (08:39→22:44)
[2021-03-11] MEDS: THIAMINE INJECTION 100 MG, FOLIC ACID INJECTION 1 MG, MAGNESIUM SULFATE 2 GM, VITAMIN M... IV SCH ×5 (09:11)
[2021-03-11] MEDS: ALPRAZolam 0.25 MG (XANAX) TAB PO PRN ×2 (09:15→17:25)
--- NOTE | 2021-03-11 11:08 | Progress Note - Hospitalist ---
Subjective HPI/CC On Admission Date Seen by Provider: Mar 11, 2021 Time Seen by Provider: 11:15 CC: Alcohol detox HPI: This is a 25yoWF who has a h/o KATHY and alcoholism for many years who presents to the ER with ETOH withdrawal. Subjective/Events-last exam Patient tearful Alcohol withdrawal in process Increasing Ativan Objective Exam Vital Signs Vital Signs Date Time Temp Pulse Resp B/P (MAP) Pulse Ox O2 Delivery O2 Flow Rate FiO2 03/12/21 04:23 36.2 64 20 98/65 (76) 98 Room Air Capillary Refill : Less Than 3 Seconds General Appearance: No Apparent Distress, WD/WN, Chronically ill, Other (Tearful) Respiratory: Normal Breath Sounds Results/Procedures Lab Patient resulted labs reviewed. Assessment/Plan Assessment and Plan Assess & Plan/Chief Complaint Assessment: Alcohol withdrawal Plan: Detox protocol OLEG DELAROSA DO Mar 11, 2021 11:08
[2021-03-11 11:45] VITALS: BP 117/78
[2021-03-11] MEDS: NICOTINE 21 MG (NICODERM) PATCH TD SCH (14:43)
[2021-03-11 16:00] VITALS: BP 123/74
[2021-03-11 19:51] VITALS: BP 132/59
[2021-03-11] MEDS: ENOXAPARIN 40 MG/0.4 ML (LOVENOX) SYR SC SCH (22:44)
[2021-03-12] VITALS (15 sets, daily range): BP systolic 88–130; BP diastolic 47–93
[2021-03-12] MEDS: LORazepam 1 MG (ATIVAN) TAB PO PRN ×6 (01:21→11:56)
[2021-03-12] MEDS: PANTOPRAZOLE 40 MG (PROTONIX) TAB PO SCH (06:18)
[2021-03-12 07:48] LABS: BASOPHILS # (AUTO) 0.1 10^3/uL (0.0-0.1); BASOPHILS % (AUTO) 1 % (0-10); EOSINOPHILS # (AUTO) 0.1 10^3/uL (0.0-0.3); EOSINOPHILS % (AUTO) 1 % (0-10); HEMATOCRIT 37 % (35-52); HEMOGLOBIN 12.4 g/dL (11.5-16.0); LYMPHOCYTES # (AUTO) 1.7 10^3/uL (1.0-4.0); LYMPHOCYTES % (AUTO) 25 % (12-44); MEAN CORPUSCULAR HEMOGLOBIN 35 pg (25-34); MEAN CORPUSCULAR HGB CONC 34 g/dL (32-36); MEAN CORPUSCULAR VOLUME 105 fL (80-99); MEAN PLATELET VOLUME 9.9 fL (9.0-12.2); MONOCYTES # (AUTO) 0.6 10^3/uL (0.0-1.0); MONOCYTES % (AUTO) 8 % (0-12); NEUTROPHILS # (AUTO) 4.6 10^3/uL (1.8-7.8); NEUTROPHILS % (AUTO) 65 % (42-75); PLATELET COUNT 239 10^3/uL (130-400)
[2021-03-12 08:00] LABS: ALBUMIN 3.7 GM/DL (3.2-4.5); POTASSIUM 4.7 MMOL/L (3.6-5.0)
[2021-03-12 08:01] LABS: CALCIUM 8.6 MG/DL (8.5-10.1)
[2021-03-12 08:02] LABS: TOTAL PROTEIN 6.1 GM/DL (6.4-8.2)
[2021-03-12 08:04] LABS: BILIRUBIN,TOTAL 0.4 MG/DL (0.1-1.0)
[2021-03-12 08:06] LABS: CREATININE SERUM 0.72 MG/DL (0.60-1.30)
[2021-03-12] MEDS: NICOTINE PATCH REMOVAL TP SCH (08:21)
[2021-03-12] MEDS: NICOTINE 21 MG (NICODERM) PATCH TD SCH (08:22)
[2021-03-12] MEDS: DICLOFENAC 1% GEL 100 GM (VOLTAREN) TUBE TOP SCH ×3 (08:22→21:32)
[2021-03-12] MEDS: polyethylene glycoL POWDER 17 GM (MIRALAX) PACK PO SCH ×2 (08:22→20:21)
[2021-03-12] MEDS: SENNA W/DOCUSATE (SENOKOT S) TABLET PO SCH (08:22)
[2021-03-12] MEDS: THIAMINE INJECTION 100 MG, FOLIC ACID INJECTION 1 MG, MAGNESIUM SULFATE 2 GM, VITAMIN M... IV SCH ×5 (08:57)
[2021-03-12] MEDS: ONDANSETRON 4 MG/2 ML (SDV) Z0FRAN IV PRN (09:39)
--- NOTE | 2021-03-12 10:51 | Progress Note - Hospitalist ---
Subjective HPI/CC On Admission Date Seen by Provider: Mar 12, 2021 Time Seen by Provider: 10:30 CC: Alcohol detox HPI: This is a 25yoWF who has a h/o KATHY and alcoholism for many years who presents to the ER with ETOH withdrawal. Subjective/Events-last exam Patient in [place] alcohol withdrawal Requiring ICU transfer Precedex ordered Very difficult situation Review of Systems Gastrointestinal: Nausea, Vomiting Objective Exam Vital Signs Vital Signs Date Time Temp Pulse Resp B/P (MAP) Pulse Ox O2 Delivery O2 Flow Rate FiO2 03/12/21 18:10 64 17 88/47 (61) 97 Room Air 03/12/21 12:05 37.6 Capillary Refill : Less Than 3 Seconds General Appearance: WD/WN, Anxious, Mild Distress Respiratory: No Accessory Muscle Use, No Respiratory Distress, Decreased Breath Sounds Cardiovascular: Regular Rate, Rhythm Neurologic/Psychiatric: Alert, Oriented x3, No Motor/Sensory Deficits, Normal Mood/Affect Results/Procedures Lab Laboratory Tests 03/12/21 07:20 Patient resulted labs reviewed. Assessment/Plan Assessment and Plan Assess & Plan/Chief Complaint Assessment: Alcohol withdrawal Plan: Detox protocol 03/12/2021: Transfer to ICU due to worsening alcohol withdrawal History of seizures with withdrawal OLEG DELAROSA DO Mar 12, 2021 10:51
[2021-03-12] MEDS ORDERED: DexMEDEtomidine 250 ML DRIP 250 ML IV SCH (11:30)
--- NOTE | 2021-03-12 12:46 | Tele-ICU Consult ---
History of Present Illness History of Present Illness Date Seen by Provider: Mar 12, 2021 Time Seen by Provider: 12:28 Date of Admission This virtual visit was conducted using real time audio/video. Thank you for asking us to see this patient for alcohol withdrawal. Recent events: Admitted 03/19/21 and traferred to ICU for increasing hallucinations. PMH: Drug/Alcohol abuse, anx., depression. SH: smoking history Y FH: DM, HTN. ROS: as in HPI. PE: Currently calm on camera. VSS. HEENT: No obvious masses, adenopathy or JVD. Chest: clear to auscultation. CV: RRR S1 S2 No murmur or added sounds. Abd: Non-tender. Bowel sounds Y. : Unremarkable. Kirby N. RAG ROOM SUPERVISOR/psychiatric: Grossly intact. No obvious focal findings. Extremities: No edema. Capillary refill < 3 seconds. Skin: unremarkable. Results: unremarkable. CXR: Normal. Available chart/ vitals / labs / images reviewed. Video assessment done using teleICU camera, rest of exam as per RN. A/P: Alcohol withdrawal: Continue present management with Precedex, Ativan, Zofran, nicotine patch 21 mg. Monitor for increasing agitation/hallucinations. Critical Care: critically ill patient. Cont. Morgan., PPI, IVF. Discussed with CHET López. Asked RN to reach out to eICU if any questions or concerns later. Time spent with patient/coordination of care with other health professionals (mins): Allergies and Home Medications Allergies Coded Allergies: No Known Drug Allergies (Unverified , 10/03/17) Home Medications Acetaminophen 500 Mg Tablet, 1,000 MG PO Q8H PRN for PAIN-MILD (1-4), (Reported) [place] Carbonate 300 Mg Tablet.er, 300 MG PO DAILY, (Reported) Melatonin/Pyridoxine HCl (B6) 1 Each Tab.mphase, 2 EACH PO HS, (Reported) TAKES 2 TABLETS Mirtazapine 15 Mg Tablet, 15 MG PO DAILY, (Reported) Ondansetron 4 Mg Tab.rapdis, 4 MG PO Q6H PRN for NAUSEA/VOMITING-1ST LINE, (Reported) Prazosin HCl 2 Mg Capsule, 2 MG PO BID, (Reported) Quetiapine Fumarate 100 Mg Tablet, 100 MG PO HS, (Reported) Quetiapine Fumarate 25 Mg Tablet, 25 MG PO BID PRN for ANXIETY, (Reported) Sucralfate 1 Gm Tablet, 1 GM PO HS, (Reported) Past Medical/Social/Family Hx Patient Social History Marrital Status: cohabiting Employed/Student: unemployed Tobacco Use?: Yes Tobacco type used: Cigarettes Smoking Status: Current Everyday Smoker Use of E-Cig and/or Vaping dev: No Substance use?: No Substance type: Marijuana Substance frequency: Once in a while Alcohol Use?: Yes Alcohol type: Hard Liquor Additional alcohol type: WHISKEY Alcohol Frequency: Daily Pt stated abuse/neglect: No Immunizations Up To Date Influenza Vaccine Up-to-Date: No; Not Current First/Initial COVID19 Vaccinat: 12/10 Second COVID19 Vaccination Agusto: 12/10 Tetanus Booster (TDap): Unknown Current Status status: No status: No Advance Directives: No Communicates: Verbally Primary Language: Greenlandic Preferred Spoken Language: Greenlandic Is interpretation needed?: No Implanted or Applied Medical D: None Review of Systems Constitutional: see HPI EENTM: see HPI Respiratory: see HPI Cardiovascular: see HPI Gastrointestinal: see HPI Genitourinary: see HPI Musculoskeletal: see HPI Skin: see HPI Psychiatric/Neurological: See HPI All Other Systems Reviewed Negative Unless Noted: Yes Sepsis Event Evaluation Height, Weight, BMI Height: 5'4.00" Weight: 115lbs. 0.0oz. 52.757277os; 25.75 BMI Method:Stated Exam Exam Patient acknowledged, consented, and participated in this virtual visit which was conducted using real time audio/video Vital Signs Date Time Temp Pulse Resp B/P (MAP) Pulse Ox O2 Delivery O2 Flow Rate FiO2 03/12/21 12:05 37.6 03/12/21 12:05 89 120/73 03/12/21 11:02 36.7 76 20 119/76 (90) 97 Room Air 03/12/21 08:00 97 Room Air 03/12/21 07:58 36.8 71 20 108/70 (83) 97 Room Air 03/12/21 07:00 65 03/12/21 04:23 36.2 64 20 98/65 (76) 98 Room Air 03/12/21 01:00 63 03/12/21 00:58 36.0 63 20 100/67 (78) 99 Room Air 03/11/21 20:00 98 Room Air 03/11/21 19:51 36.3 77 20 132/59 (83) 97 Room Air 03/11/21 19:00 77 03/11/21 16:00 36.7 77 18 123/74 (90) 97 Room Air 03/11/21 12:58 69 I & O 03/12/21 07:00 Intake Total 1955.2 ml Balance 1955.2 ml Height & Weight Height: 5'4.00" Weight: 115lbs. 0.0oz. 52.366421qe; 25.75 BMI Method:Stated General Appearance: No Apparent Distress (see free text), WD/WN, Chronically ill, Other (Tearful) HEENT: PERRL/EOMI, TMs Normal, Normal ENT Inspection, Pharynx Normal, Moist Mucous Membranes Neck: Full Range of Motion, Normal Inspection, Non Tender Respiratory: Normal Breath Sounds Cardiovascular: Regular Rate, Rhythm, No Edema, No Gallop, No JVD, No Murmur, Normal Peripheral Pulses Capillary Refill: Less Than 3 Seconds Peripheral Pulses: 1+ Dorsalis Pedis (R), 1+ Left Dors-Pedis (L) Extremity: Normal Capillary Refill, Normal Inspection, Normal Range of Motion, Non Tender, No Calf Tenderness, No Pedal Edema Neurologic/Psychiatric: Alert, Oriented x3, No Motor/Sensory Deficits, Normal Mood/Affect Skin: Normal Color, Warm/Dry Lymphatic: No Adenopathy Results Lab Laboratory Tests 03/11/21 05:00 03/12/21 07:20 Assessment/Plan Assessment/Plan See free text. Critical Care: Critically Ill Patient FAISAL ENRIQUE MD Mar 12, 2021 12:46
[2021-03-12] MEDS: LORazepam INJ 2 MG/ML (ATIVAN) VIAL IV PRN ×6 (14:29→22:14)
[2021-03-12] MEDS: ENOXAPARIN 40 MG/0.4 ML (LOVENOX) SYR SC SCH (20:11)
[2021-03-12] MEDS: IBUPROFEN TABLET 200 MG TAB PO PRN (20:16)
[2021-03-13] VITALS (10 sets, daily range): BP systolic 88–119; BP diastolic 46–82
[2021-03-13] MEDS: ONDANSETRON 4 MG/2 ML (SDV) Z0FRAN IV PRN ×2 (01:42→05:54)
[2021-03-13] MEDS: LORazepam INJ 2 MG/ML (ATIVAN) VIAL IV PRN ×3 (01:43→08:13)
[2021-03-13] MEDS: IBUPROFEN TABLET 200 MG TAB PO PRN (05:54)
[2021-03-13] MEDS ORDERED: POTASSIUM CL 10MEQ/50ML IVPB 50 ML IV SCH (06:00)
[2021-03-13] MEDS ORDERED: KCL 20 MEQ TAB (K-DUR) PO SCH (06:00)
[2021-03-13] MEDS ORDERED: MAGNESIUM 1 GM/100 ML IVPB 100 ML IV SCH (06:00)
[2021-03-13 06:20] LABS: ALBUMIN 3.5 GM/DL (3.2-4.5); BILIRUBIN,TOTAL 0.3 MG/DL (0.1-1.0); CALCIUM 8.7 MG/DL (8.5-10.1); CREATININE SERUM 0.75 MG/DL (0.60-1.30); MAGNESIUM 1.8 MG/DL (1.6-2.4); PHOSPHORUS 4.5 MG/DL (2.3-4.7); POTASSIUM 4.8 MMOL/L (3.6-5.0)
[2021-03-13 06:46] LABS: BASOPHILS % (AUTO) 0 % (0-10); EOSINOPHILS # (AUTO) 0.1 10^3/uL (0.0-0.3); EOSINOPHILS % (AUTO) 1 % (0-10); HEMATOCRIT 40 % (35-52); HEMOGLOBIN 13.3 g/dL (11.5-16.0); LYMPHOCYTES # (AUTO) 2.1 10^3/uL (1.0-4.0); LYMPHOCYTES % (AUTO) 23 % (12-44); MEAN CORPUSCULAR HEMOGLOBIN 36 pg (25-34); MEAN CORPUSCULAR HGB CONC 33 g/dL (32-36); MEAN CORPUSCULAR VOLUME 108 fL (80-99); MEAN PLATELET VOLUME 9.9 fL (9.0-12.2); MONOCYTES # (AUTO) 0.8 10^3/uL (0.0-1.0); MONOCYTES % (AUTO) 9 % (0-12); NEUTROPHILS % (AUTO) 67 % (42-75); PLATELET COUNT 225 10^3/uL (130-400)
[2021-03-13] MEDS: PANTOPRAZOLE 40 MG (PROTONIX) TAB PO SCH (06:58)
[2021-03-13] MEDS: NICOTINE PATCH REMOVAL TP SCH (08:11)
[2021-03-13] MEDS: polyethylene glycoL POWDER 17 GM (MIRALAX) PACK PO SCH (08:12)
[2021-03-13] MEDS: NICOTINE 21 MG (NICODERM) PATCH TD SCH (08:12)
[2021-03-13] MEDS: SENNA W/DOCUSATE (SENOKOT S) TABLET PO SCH (08:12)
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
== END 2021-03-13 10:00 | disposition left against medical advice (07) | DRG 894 ==
LOC: EDUNIT# 18:40 → ER 18:41 → 4TH 20:24 → UNDOADMIN 20:24 → 4TH 21:03 → OBSVTOIN 03-10 15:35 → 4TH 03-12 11:59 → ICU 03-12 11:59 → UNDODISIN 03-13 10:00
PROVIDERS: ADMIT Internal Medicine; ATTEND Family Medicine
DX: F10.129 Alcohol abuse with intoxication, unspecified (principal); Y90.6 Blood alcohol level of 120-199 mg/100 ml; S70.312A Abrasion, left thigh, initial encounter; S50.312A Abrasion of left elbow, initial encounter; F10.139 Alcohol abuse with withdrawal, unspecified; V48.3XXA Unspecified car occupant injured in noncollision transport accident in nontraffic accident, initial encounter; F41.9 Anxiety disorder, unspecified; F32.A Depression, unspecified; F17.210 Nicotine dependence, cigarettes, uncomplicated
CPT/HCPCS: 36415; 71045; 80053; 80320; 82947; 83735; 84100; 84703; 85025; 85610; 90471; 90715; G0378